=== PATIENT | male | born 1965 | race Caucasian/White ===

== ENCOUNTER → 2016-03-21 | Outpatient (CLI) | payer BC ==
[~2016-03-21] MED LIST: CIPR-250 PO; CLON0.5T PO; MOBI7.5T10 PO; NORC5TAB PO; OMEP40CA2 PO; PRAV10TA PO; SERT25TA85 PO; TRAM50TA2 PO; TYLE325T5 PO
--- NOTE | 2016-04-01 01:18 | ECWPNPC ---
PATIENT NAME: ROSSY ACUÑA : 1965 GENDER: MALE VISIT DATE: 03/21/2016 DISCHARGE DATE: 03/21/16 1219 VISIT LOCKED DATE TIME: PHYSICIAN: ALINE HICKMAN RESOURCE: ALINE HICKMAN REASON FOR APPOINTMENT 1. BACK HISTORY OF PRESENT ILLNESS HISTORY OF PRESENT ILLNESS: HERE FOR POST PROC. F/U.HAD BILATERAL LUMBAR THERAPEUTIC FACET BLOCK 03-05-16.PAIN DIARY REVIEWED AND IS SHOWING APROXIMATLEY 50% REDUCTION IN PAIN POST PROCEDURE.CONTINUES WITH IMPROVEMENT.CHIEF AREA OF PAIN IS BUTTOCK AND THIGHS.HAS RESPONDED FROM SIJ INJECTIONS IN PAST.RATING PAIN IN THIS AREA 5/10. PAIN THE PATIENT DESCRIBES THE PAIN... FALL RISK SCREENING: SCREENING :NO FALLS IN THE PAST YEAR CURRENT MEDICATIONS TAKING MELOXICAM 7.5 MG TABLET 1 TABLET ORALLY ONCE A DAY TAKING OMEPRAZOLE 40 MG CAPSULE DELAYED RELEASE 1 CAPSULE ORALLY ONCE A DAY TAKING IBUPROFEN 400 MG TABLET 1 TABLET ORALLY THREE TIMES A DAY TAKING PRAVASTATIN SODIUM 20 MG TABLET ORAL DAILY TAKING ROPINIROLE HCL 1 MG TABLET ORAL FOUR TIMES DAILY TAKING LISINOPRIL 5 MG TABLET ORAL DAILY TAKING PAMELOR 10 MG CAPSULE 1 CAPSULE ORALLY BID NOT-TAKING SERTRALINE HCL 50 MG TABLET 75MG TAB ORAL DAILY DISCONTINUED GABAPENTIN 400 MG CAPSULE 1 CAPSULE ORALLY THREE TIMES A DAY PAST MEDICAL HISTORY BARRETTS ESOPHAGUS NECK PAIN OSTEO ARTHRITUS CRUSHED SPINAL CORD - NERVE CONDUCTION TEST SHOWED MISFIRING NERVES GENERALIZED MUSCLE WEAKNESS ALLERGIES N.K.D.A. SOCIAL HISTORY GENERAL: TOBACCO USE ARE YOU A:CURRENT SMOKER HOW MANY CIGARETTES A DAY DO YOU SMOKE?6-10 HOW SOON AFTER YOU WAKE UP DO YOU SMOKE YOUR FIRST CIGARETTE?6-30 MIN HOW OFTEN DO YOU SMOKE CIGARETTES?EVERY DAY PATIENT COUNSELED ON THE DANGERS OF TOBACCO USE AND URGED TO QUIT: PATIENT ENCOURAGED TO STOP SMOKING. ARE YOU INTERESTED IN QUITTING?THINKING ABOUT QUITTING LEARNING BARRIERS / SPECIAL NEEDS ORIENTED TO PLAN OF CARE: PATIENT, PAIN MANAGEMENT PATIENT, ORIENTED TO PLAN OF CARE: PATIENT, PAIN MANAGEMENT PATIENT. NEW PATIENT PAIN DIARY TODAY'S VISITNOTES FROM 0-10, WHAT LEVEL IS YOUR PAIN TODAY?0 PAIN CLINIC PFS, CLERGY, PUBLIC HEALTH REFERRALS PFS REFERRAL NEEDED?NO CLERGY REFERRAL NEEDED?NO PUBLIC HEALTH REFERRAL NEEDED?NO WAS THE PROVIDER NOTIFIED OF ANY PERTINENT INFO?NO PFS REFERRAL NEEDED?NO CLERGY REFERRAL NEEDED?NO PUBLIC HEALTH REFERRAL NEEDED?NO WAS THE PROVIDER NOTIFIED OF ANY PERTINENT INFO?NO REVIEW OF SYSTEMS CONSTITUTIONAL: ANY CHANGE IN YOUR MEDICAL CONDITION? NO . RECENT ILLNESS DENIES . CHILLS NO . FEVER NO . WEIGHT LOSS DENIES . INFECTION: DO YOU HAVE NEW INFECTIONS? NO . DO YOU HAVE HISTORY OF MRSA? NO . MUSCULOSKELETAL: ANY NEW PATTERNS OF PAIN OR NUMBNESS? NO . GASTROENTEROLOGY: ANY NEW CHANGE IN BOWEL CONTROL? NO . GENITOURINARY: ANY NEW CHANGE IN BLADDER CONTROL? NO . IS THERE A CHANCE YOU COULD BE ? NO . HEMATOLOGY/LYMPH: DO YOU TAKE ANY BLOOD THINNERS? (FOR EXAMPLE- COUMADIN, PLAVIX, AGGRENOX, PLATEL, PRADAXA, OR XARELTO) NO . WHEN WAS YOUR LAST DOSE? DATE: TIME: . NEUROLOGY: HAVE YOU FALLEN IN THE PAST 6 MONTHS? NO . ANY NEW EXTREMITY NUMBNESS OR WEAKNESS? NO . CARDIOLOGY: DO YOU HAVE A PACEMAKER OR DEFIBRILLATOR? NO . CHEST PAIN DENIES . SHORTNESS OF BREATH DENIES . RESPIRATORY: HAVE YOU BEEN SICK IN THE PAST WEEK? NO . FEVER NO . FLU LIKE SYMPTOMS? NO . COUGH NO, DENIES . SHORTNESS OF BREATH DENIES . INTEGUMENTARY: DO YOU HAVE ANY RASHES OR OPEN SORES? NO . ALLERGIC/IMMUNO: ARE YOU ALLERGIC TO SHELLFISH OR IV DYE? NO . ANY NEW ALLERGIES? NO . PSYCHIATRIC: DO YOU HAVE THOUGHTS OF HURTING YOURSELF OR SOMEONE ELSE? NO . ARE YOU ABUSED, NEGLECTED, OR IN AN UNSAFE ENVIRONMENT? NO . ENDOCRINOLOGY: ARE YOU DIABETIC? NO . OTHER: DO YOU NEED ANY PRESCRIPTIONS? NO . IF YES, PLEASE LIST: ____ . ANY NEW PROBLEMS WITH YOUR MEDICATIONS? NO . WHEN DID YOU LAST EAT? ____ . WHEN DID YOU LAST DRINK? ____ . WHAT DID YOU LAST DRINK? ____ . NAME OF PERSON DRIVING YOU HOME? ____ . DO YOU HAVE ANY OTHER QUESTIONS OR CONCERNS NO . REVIEWED BY: PROVIDER: ALINE GARCIA . VITAL SIGNS WT 170 LBS, HT 70", BMI 24.39 INDEX, BP 152/84 MM HG, HR 84 /MIN, RR 14 /MIN, TEMP 98 F, OXYGEN SAT % 100, REVIEWED BY: CS. EXAMINATION GENERAL EXAMINATION: LUNGS:LUNG SOUNDS ARE CLEAR. HEART:HEART RATE REGULAR. MUSCULOSKELETAL:*, PALPATION: NEGATIVE FOR PAIN OVER L/S SPINE. NEGATIVE FOR PAIN OVER L/S PARSPINALS, MUSCLE STRENGTH TESTING 5/5 BILATERAL.SPECIFIC POINT TENDERNESS OVER BILAT. SIJ NOTED.. DIAGNOSTIC: . 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 PROCEDURE CODES FA211 ESTABILISHED PATIENT [facility] FACILITY CHARGE FOLLOW UP 2WK POST (REASON: BILAT. SIJ) ELECTRONICALLY SIGNED BY JOSE MAS ON 03/31/2016 AT 01:29 PM EST DISCLAIMER : THIS IS A VISIT SUMMARY EXTRACTED FROM THE [employer] CHART. IT IS NOT A COPY OF THE [employer] PROGRESS NOTE. GABRIELA
== END ==
LOC: M PAIN 11:20
PROVIDERS: ATTEND Nurse Practitioner Family
DX: Z09 Encounter for follow-up examination after completed treatment for conditions other than malignant neoplasm (principal); M53.3 Sacrococcygeal disorders, not elsewhere classified; M54.5 Low back pain; M15.0 Primary generalized (osteo)arthritis; M54.2 Cervicalgia; K22.70 Barrett's esophagus without dysplasia; G95.20 Unspecified cord compression; M62.81 Muscle weakness (generalized); F17.200 Nicotine dependence, unspecified, uncomplicated; Z79.1 Long term (current) use of non-steroidal anti-inflammatories (NSAID); Z79.899 Other long term (current) drug therapy

== ENCOUNTER → 2016-04-02 | Outpatient (CLI) | payer BC ==
[~2016-04-02] MED LIST changes: +BUPIVACAINE HCL 0.25% 30 ML VIAL As Ordered ONE; +ISOVUE-M 300 61% 15ML VIAL (Q9967) As Ordered ONE; +LIDOCAINE 1% SDV INJ 30 ML VIAL As Ordered ONE; +TRIAMCINOLONE ACETONIDE SUSP 40 MG/ML VIAL (J3301) As Ordered ONE; +diazePAM 5 MG TAB As Ordered ONE; +oxyCODONE 5MG TAB As Ordered ONE
--- NOTE | 2016-04-03 08:59 | REP ---
SI joint series: Six views. History: Bilateral SI joint injection for pain. 19 seconds of fluoroscopy time is reported. Findings: A sequence of six fluoroscopically obtained intraprocedural spot radiographs of the SI joints document needle position and contrast injection associated with SI joint injection procedure. Signed by Jamshid Alonzo MD 04/03/2016 10:22 A
--- NOTE | 2016-04-06 23:27 | ECWPNPC ---
PATIENT NAME: ROSSY ACUÑA : 1965 GENDER: MALE VISIT DATE: 04/02/2016 DISCHARGE DATE: 04/02/16 1458 VISIT LOCKED DATE TIME: PHYSICIAN: MAURICIO ALEXANDRE RESOURCE: MAURICIO ALEXANDRE REASON FOR APPOINTMENT 1. BILAT SIJ HISTORY OF PRESENT ILLNESS HISTORY OF PRESENT ILLNESS: PAIN THE PATIENT DESCRIBES THE PAIN... FALL RISK SCREENING: SCREENING :NO FALLS IN THE PAST YEAR CURRENT MEDICATIONS TAKING MELOXICAM 7.5 MG TABLET 1 TABLET ORALLY ONCE A DAY, NOTES: 04-02-16429 TAKING OMEPRAZOLE 40 MG CAPSULE DELAYED RELEASE 1 CAPSULE ORALLY ONCE A DAY, NOTES: 04-01-162099 TAKING IBUPROFEN 400 MG TABLET 1 TABLET ORALLY THREE TIMES A DAY, NOTES: 04-02-16429 TAKING PRAVASTATIN SODIUM 20 MG TABLET ORAL DAILY, NOTES: 04-01-162099 TAKING ROPINIROLE HCL 1 MG TABLET ORAL FOUR TIMES DAILY, NOTES: 04-02-16429 TAKING LISINOPRIL 5 MG TABLET ORAL DAILY, NOTES: 04-02-16429 TAKING PAMELOR 10 MG CAPSULE 1 CAPSULE ORALLY BID, NOTES: 04-02-16429 TAKING PERCOCET 7.5-325 MG TABLET 1 TABLET NEEDED ORALLY TWICE DAILY, NOTES: 04-01-16 1300 DISCONTINUED LYRICA 50 MG CAPSULE 1 CAPSULE ORALLY BID DISCONTINUED SERTRALINE HCL 50 MG TABLET 75MG TAB ORAL DAILY MEDICATION LIST REVIEWED AND RECONCILED WITH THE PATIENT PAST MEDICAL HISTORY BARRETTS ESOPHAGUS NECK PAIN OSTEO ARTHRITUS CRUSHED SPINAL CORD - NERVE CONDUCTION TEST SHOWED MISFIRING NERVES GENERALIZED MUSCLE WEAKNESS ALLERGIES N.K.D.A. SOCIAL HISTORY GENERAL: TOBACCO USE ARE YOU A:NONSMOKER LEARNING BARRIERS / SPECIAL NEEDS ORIENTED TO PLAN OF CARE: PATIENT, PAIN MANAGEMENT PATIENT, ORIENTED TO PLAN OF CARE: PATIENT, PAIN MANAGEMENT PATIENT. NEW PATIENT PAIN DIARY TODAY'S VISITNOTES FROM 0-10, WHAT LEVEL IS YOUR PAIN TODAY?0 PAIN CLINIC PFS, CLERGY, PUBLIC HEALTH REFERRALS PFS REFERRAL NEEDED?NO CLERGY REFERRAL NEEDED?NO PUBLIC HEALTH REFERRAL NEEDED?NO WAS THE PROVIDER NOTIFIED OF ANY PERTINENT INFO?NO PFS REFERRAL NEEDED?NO CLERGY REFERRAL NEEDED?NO PUBLIC HEALTH REFERRAL NEEDED?NO WAS THE PROVIDER NOTIFIED OF ANY PERTINENT INFO?NO REVIEW OF SYSTEMS CONSTITUTIONAL: ANY CHANGE IN YOUR MEDICAL CONDITION? NO . CHILLS NO . FEVER NO . INFECTION: DO YOU HAVE NEW INFECTIONS? NO . DO YOU HAVE HISTORY OF MRSA? NO . MUSCULOSKELETAL: ANY NEW PATTERNS OF PAIN OR NUMBNESS? NO . GASTROENTEROLOGY: ANY NEW CHANGE IN BOWEL CONTROL? NO . GENITOURINARY: ANY NEW CHANGE IN BLADDER CONTROL? NO . IS THERE A CHANCE YOU COULD BE ? NO . HEMATOLOGY/LYMPH: DO YOU TAKE ANY BLOOD THINNERS? (FOR EXAMPLE- COUMADIN, PLAVIX, AGGRENOX, PLATEL, PRADAXA, OR XARELTO) NO . WHEN WAS YOUR LAST DOSE? DATE: TIME: . NEUROLOGY: HAVE YOU FALLEN IN THE PAST 6 MONTHS? NO . ANY NEW EXTREMITY NUMBNESS OR WEAKNESS? NO . CARDIOLOGY: DO YOU HAVE A PACEMAKER OR DEFIBRILLATOR? NO . RESPIRATORY: HAVE YOU BEEN SICK IN THE PAST WEEK? NO . FEVER NO . FLU LIKE SYMPTOMS? NO . COUGH NO . INTEGUMENTARY: DO YOU HAVE ANY RASHES OR OPEN SORES? NO . ALLERGIC/IMMUNO: ARE YOU ALLERGIC TO SHELLFISH OR IV DYE? NO . ANY NEW ALLERGIES? NO . PSYCHIATRIC: DO YOU HAVE THOUGHTS OF HURTING YOURSELF OR SOMEONE ELSE? NO . ARE YOU ABUSED, NEGLECTED, OR IN AN UNSAFE ENVIRONMENT? NO . ENDOCRINOLOGY: ARE YOU DIABETIC? NO . OTHER: DO YOU NEED ANY PRESCRIPTIONS? NO . IF YES, PLEASE LIST: ____ . ANY NEW PROBLEMS WITH YOUR MEDICATIONS? NO . WHEN DID YOU LAST EAT? 04-02-16 1000 DONUTS . WHEN DID YOU LAST DRINK? 04-02-16 0900 . WHAT DID YOU LAST DRINK? WATER . NAME OF PERSON DRIVING YOU HOME? JUVENCIO . DO YOU HAVE ANY OTHER QUESTIONS OR CONCERNS NO . REVIEWED BY: PROVIDER: . VITAL SIGNS WT 168 LBS, HT 70", BMI 24.10 INDEX, BP 188/91 MM HG, HR 89 /MIN, RR 16 /MIN, TEMP 97.5 F, OXYGEN SAT % 99, NA INITIALS TL 1333ELEVATED BP 188/91, RN Ihsan AWARE- TL. ASSESSMENTS SACROILIITIS, NOT ELSEWHERE CLASSIFIED - M46.1 (PRIMARY) PROCEDURES PN SI PRE PROCEDURE DIAGNOSIS SACROILIITIS, SACROILIAC JOINT DYSFUNCTION POST PROCEDURE DIAGNOSIS SACROILIITIS, SACROILIAC JOINT DYSFUNCTION PROCEDURE BILATERAL SACROILIAC JOINT BLOCK SURGEON DR. MAURICIO ALEXANDRE [employer]ALE [employer] NONE ANESTHESIA LOCAL PRE PROCEDURE NOTE PATIENT WITH HISTORY OF CHRONIC LOW BACK PAIN. I EVALUATED THE PATIENT AND REVIEWED THE CHART. I WENT OVER THE RISKS, ALTERNATIVES, AND BENEFITS ASSOCIATED WITH THIS PROCEDURE. THE PATIENT WOULD LIKE TO PROCEED AND GAVE CONSENT TO PERFORM THE PROCEDURE. THE PATIENT DENIES UNEXPLAINABLE WEIGHT LOSS, FEVER, CHILLS, OR NEW CHANGES IN URINARY OR BOWEL CONTROL DESCRIPTION OF PROCEDURE THE PATIENT WAS BROUGHT TO THE PROCEDURE ROOM AND PLACED IN THE PRONE POSITION. THE LUMBOSACRAL AREA WAS CLEANED WITH CHLORAPREP SOLUTION AND DRAPED ASEPTICALLY. THE PROCEDURE WAS DONE UNDER STERILE CONDITIONS. I CHECKED LATERALITY AND THE LEVEL WHERE THE PROCEDURE WAS GOING TO BE PERFORMED WITH THE PATIENT AND THE SUPPORTING STAFF AT THE MOMENT OF THE TIME OUT IN THE PROCEDURE ROOM. UNDER FLUOROSCOPIC GUIDANCE, TARGET POINT WAS SELECTED AT THE LOWER BORDER OF THE RIGHT AND LEFT SACROILIAC JOINT. TARGET POINT WAS SELECTED AFTER MEDIAL ROTATION AND TILT OF THE MAGNIFIER OF THE C-ARM. LIDOCAINE WAS USED TO NUMB THE SKIN AND SUBCUTANEOUS TISSUE BELOW IT. A SPINAL NEEDLE, 22-GAUGE, WAS ADVANCED UNDER FLUOROSCOPIC GUIDANCE AND FOLLOWING PATIENT FEEDBACK UNTIL THE TARGET AREA WAS TOUCHED. THE POSITION OF THE NEEDLE WAS VERIFIED WITH AP AND LATERAL VIEWS. AFTER PROPER POSITION OF THE NEEDLE WAS ACHIEVED, ISOVUE M DYE 30%, 0.25 ML, WAS INJECTED SHOWING SPREAD OF THE DYE. THEN, A SOLUTION OF 20 MG OF KENALOG WAS INJECTED IN RIGHT JOINT WITH 3 ML OF BUPIVACAINE 0.125%. THERE WAS NO EVIDENCE OF BLOOD, PARESTHESIA OR CEREBROSPINAL FLUID DURING THE PROCEDURE. THE PATIENT WAS SENT TO THE RECOVERY ROOM. THE PATIENT WAS MOVING THE EXTREMITIES AND DOING WELL. THERE WAS NO COMPLICATION DURING THE PROCEDURE. FLUOROSCOPY TIME WAS 19 SECONDS POST PROCEDURE NOTE THE PATIENT WILL BE SEEN IN A FOLLOW UP IN THE NEXT FEW WEEKS. INSTRUCTIONS WERE GIVEN, QUESTIONS WERE ANSWERED, AND THE PATIENT EXPRESSED UNDERSTANDING AND AGREED WITH THE PLAN. I, MOISÉS COHN, DOCUMENTED THE ABOVE INFORMATION ACTING A SCRIBE FOR DR. ALEXANDRE. I, DR. ALEXANDRE, HAVE REVIEWED THE ABOVE DOCUMENT, SCRIBED BY MOISÉS COHN, AND I VERIFY THAT IT IS ACCURATE DIAGNOSTIC IMAGING [facility] FLUORO GUIDANCE (PAIN)[id number] PROCEDURE CODES 16890 INJECT SACROILIAC JOINT 6045F RADXPS IN END [id number] PXD FOLLOW UP 3 WEEKS ELECTRONICALLY SIGNED BY MAURICIO ALEXANDRE MD ON 04/06/2016 AT 10:54 PM EST DISCLAIMER : THIS IS A VISIT SUMMARY EXTRACTED FROM THE [employer] CHART. IT IS NOT A COPY OF THE [employer] PROGRESS NOTE. GABRIELA
== END ==
LOC: M PAIN 13:20
PROVIDERS: ATTEND Anesthesiology
DX: G89.29 Other chronic pain (principal); M46.1 Sacroiliitis, not elsewhere classified; M54.5 Low back pain; Z79.891 Long term (current) use of opiate analgesic; Z79.899 Other long term (current) drug therapy
CPT/HCPCS: G0260; J3301; Q9967

== ENCOUNTER 2016-05-04 14:36 | Emergency (ER) | payer BC ==
[~2016-05-04 14:36] MED LIST changes: -BUPIVACAINE HCL 0.25% 30 ML VIAL As Ordered ONE; -ISOVUE-M 300 61% 15ML VIAL (Q9967) As Ordered ONE; -LIDOCAINE 1% SDV INJ 30 ML VIAL As Ordered ONE; -TRIAMCINOLONE ACETONIDE SUSP 40 MG/ML VIAL (J3301) As Ordered ONE; -diazePAM 5 MG TAB As Ordered ONE; -oxyCODONE 5MG TAB As Ordered ONE
[2016-05-04] MEDS ORDERED: MORPHINE 4 MG/ML 1ML SYRINGE As Ordered ONE (15:40)
[2016-05-04] MEDS ORDERED: diphenhydrAMINE INJ 50MG/ML VIAL (J1200) As Ordered ONE ×3 (15:41→15:49)
[2016-05-04] MEDS ORDERED: PROMETHAZINE INJ 25 MG/ML VIAL (J2550) As Ordered ONE (15:43)
[2016-05-04] MEDS ORDERED: fentaNYL 100 MCG/2 ML INJECTION (J3010) As Ordered ONE (16:16)
--- NOTE | 2016-05-04 16:28 | REP ---
Clinical: Headache . Comparison: None . Findings: The ventricles, sulci, and cisterns are normal in position and appearance. Munoz-white differentiation is maintained. No acute intracranial hemorrhage, mass/mass effect, pathology or trauma/injury. No evidence for acute infarction. No extra-axial fluid collection. Calvarium is intact. Partial opacification to the ethmoid air cells and right frontal sinus suggesting acute/chronic sinusitis. Impression: Normal noncontrast head CT. Sinusitis. No evidence for acute intracranial pathology or trauma/injury. Signed by Collins Zamorano MD 05/04/2016 04:20 P
[2016-05-04] MEDS ORDERED: KETOROLAC 30 MG/ML VIAL (J1885) As Ordered ONE (16:45)
--- NOTE | 2016-05-04 17:20 | EDDOCDS ---
Nurse's Notes [facility] Name: Fady Shay Age: 51 yrs Sex: Male : 1965 Arrival Date: 05/04/2016 Time: 14:36 Bed I4 / M4 Private MD: Other - Complete Info On Cds Diagnosis: Acute frontal sinusitis;Headache Presentation: 05/04 14:44 Presenting complaint: Patient states: head pain started out of the blue a couple of srm hours ago. nausea, dry heaves. no vision changes. This patient has no additional risk factors. Adult Sepsis Screening: The patient does not have new or worsening altered mentation. Patient's respiratory rate is less than 22. Systolic blood pressure is greater than 100. Patient has a qSOFA score of 0- Negative Sepsis Screen. Suicide/Homicide risk assessment- the patient denies having any suicidal and/or homicidal ideations and does not present with any other emotional, behavioral or mental health complaints. Status: Patient is not a family service worker or dependent. Transition of care: patient was not received from another setting of care. 14:44 Acuity: CAILIN Level 3 [facility] 14:44 Method Of Arrival: Walkin/Carried/Asstd [facility] Triage Assessment: 14:48 Headache History: This patient does not have a history of previous headaches. General: srm Appears uncomfortable, Behavior is appropriate for age, cooperative. Pain: Pain currently is 10 out of 10 on a pain scale. Pain began 2 hours ago Also complains of nausea. HIV screening NA for this visit Offered previously. Neurological: Level of Consciousness is awake, alert, Oriented to person, place, time, Moves all extremities. Full function Speech is normal, Facial symmetry appears normal. Historical: - Allergies: no known allergies; - Home Meds: 1. Motrin 400 mg Oral tab (Last dose: 05/04/2016 14:45) 2. lisinopril 5 mg Oral tab 1 tab once daily (Last dose: 05/04/2016 08:00) 3. pravastatin 20 mg oral tab 1 tab once daily 4. Percocet 7.5-325 mg Oral tab twice a day (Last dose: 05/04/2016 08:00) 5. Requip 1 mg Oral tab four times a day (Last dose: 05/04/2016 08:00) 6. cyclobenzaprine 5 mg Oral tab 3 times per day 7. meloxicam 7.5 mg oral tab 1 tab once daily (Last dose: 05/03/2016) 8. nystatin 1 million unit oral cap 5 times a day - PMHx: Fibromyalgia; GERD; Chronic Neck Pain; - PSHx: Cervical Discectomy; - Social history: Smoking status: Patient uses tobacco products, current every day smoker. No barriers to communication noted, The patient speaks fluent [place], Speaks appropriately for age. - Family history: Not pertinent. - : The pt / caregiver states he / she is not on anticoagulants. Home medication list is obtained from the patient. - Exposure Risk Screening:: None identified. Screenin:41 Screening information is obtained from the patient. Fall risk: No risks identified. pml Assistance ADL's: requires no assistance with activities of daily living. Abuse/DV Screen: The patient / caregiver reports he/she is: not in a situation that causes fear, pain or injury. Nutritional screening: No deficits noted. Advance Directives: Currently, there is no health care proxy. home support is adequate. Assessment: 15:41 General: Appears in no apparent distress, comfortable, Behavior is appropriate for age, pml cooperative. Pain: Location: forehead Pain currently is 9 out of 10 on a pain scale. Neurological: Level of Consciousness is awake, alert, Oriented to person, place, time. Neurological: Denies photophobia. Cardiovascular: Capillary refill < 3 seconds. Respiratory: Airway is patent Respiratory effort is even, unlabored. GI: Abdomen is non- distended Reports nausea. Derm: Skin is pink, warm & dry. 16:06 General: Pt medicated IV for headache pt moaning and writhing on stretcher without dls relief awaiting CT additional medications infusing vis pump.. 16:22 General: Pt to CT and returned via w/c IV site remains patent and clear pt re-medicated dls for headache.. 16:52 General: Pt continues to have headache 12/[address] results reviewed and pt re dls medicated again for pain IV meds continues to infuse pts vital signs are stable.. Vital Signs: 14:38 BP 163 / 87; Pulse 113; Resp 18 S; Temp 97.3(O); Pulse Ox 100% on R/A; Weight 74.84 kg gr2 (R); Height 5 ft. 10 in. (177.80 cm) (R); Pain 10/10; 16:39 BP 151 / 82; Pulse 82; Resp 16; Temp 97.7(O); Pulse Ox 100% on R/A; Pain 10/10; sew 17:17 BP 148 / 76; Pulse 78; Resp 16; Temp 97.4(O); Pulse Ox 98% ; Pain 2/10; dls 14:38 Body Mass Index 23.67 (74.84 kg, 177.80 cm) gr2 Vitals: 14:38 Log In Time: May 04, 2016 at 14:38. gr2 ED Course: 14:38 Patient visited by Stone Quach. gr2 14:38 Other - Complete Info On Cds is Private Physician. gr2 14:38 Patient moved to Waiting gr2 14:39 Patient visited by Stone Quach. gr2 14:39 Patient moved to Pre RCE gr2 14:45 Triage Initiated srm 14:50 Patient moved to I4 / M4 [facility] 15:19 Ailyn Bragg MD is Attending Physician. fg 15:19 Patient visited by Ailyn Bragg MD. fg 15:41 The patient / caregiver is instructed regarding the plan of care and ED course. Patient pml has correct armband on for positive identification. Placed in gown. Bed in low position. Call light in reach. Side rails up X2. 15:41 Inserted peripheral IV: 18gauge IV in right antecubital area and blood collected. pml Patient tolerated the procedure well. 15:43 Patient visited by Maria E Rodriguez RN. pml 16:07 [facility] Payment Agreement was scanned into [employer] and attached to record. [facility] 16:39 Patient visited by Karey Sanderson. sew 17:09 CT Head Without Contrast: had MRI 2016, frontal lobe cysts Returned. EDMS 17:17 Discontinued IV lock intact, bleeding controlled, pressure dressing applied, No dls redness/swelling at site. No procedures done that require assistance. Administered Medications: 15:54 Drug: morphine 4 mg [morphine 4 mg/mL intravenous cartridge (1 mL)] Route: IVP; Site: dls right antecubital; 15:54 Drug: Promethazine 25 mg [promethazine 25 mg/mL injection solution (1 mL)] Route: IVP; dls Site: right antecubital; 15:54 Drug: diphenhydrAMINE 12.5 mg [diphenhydramine 50 mg/mL injection solution (0.25 mL)] dls Route: IVP; Site: right antecubital; 16:21 Drug: fentaNYL (PF) 25 mcg [fentanyl (PF) 50 mcg/mL injection solution (0.5 mL)] Route: dls IVP; Site: right antecubital; 16:48 Drug: ketorolac 30 mg [ketorolac 30 mg/mL (1 mL) injection solution (1 mL)] Route: IVP; dls Site: right antecubital; 17:09 Follow up: Response: Pain is decreased dls Order Results: Radiology Order: CT Head Without Contrast: had MRI 2016, frontal lobe cysts Test: CT Head Without Contrast: had MRI 2016, frontal lobe cysts REASON FOR EXAMINATION: headache; Clinical: Headache .; ; Comparison: None .; ; Findings:; The ventricles, sulci, and cisterns are normal in position and appearance.; Munoz-white differentiation is maintained. No acute intracranial hemorrhage,; mass/mass effect, pathology or trauma/injury. No evidence for acute infarction.; No extra-axial fluid collection. Calvarium is intact. Partial opacification to; the ethmoid air cells and right frontal sinus suggesting acute/chronic; sinusitis.; ; Impression:; Normal noncontrast head CT.; Sinusitis.; No evidence for acute intracranial pathology or trauma/injury.; ; ; Signed by; Collins Zamorano MD 05/04/2016 04:20 P; Outcome: 16:54 Discharge ordered by Provider. fg 17:18 Discharge Assessment: Patient awake, alert and oriented x 3. No cognitive and/or dls functional deficits noted. Patient verbalized understanding of disposition instructions. patient administered narcotics - yes. Pt provided with safe discharge. The following High Risk Discharge criteria are identified: None. Discharged to home ambulatory, with significant other. Condition: stable Condition: improved. Discharge instructions given to patient, Instructed on discharge instructions, follow up and referral plans. medication usage, Demonstrated understanding of instructions, medications, Pt was receptive of discharge instructions/ teaching. Prescriptions given X 2. CT Study completed. Property sent home with patient. 17:19 Patient left the ED. dls Signatures: Dispatcher [facility] EDHI Luba Mcgee RN RN srm Scott, Debra, RN RN dls Quay, Paulina, RN RN Chelsey Pickens,RN RN otf Kin, Stone Katz Sandra slh Gill, Frances, MD MD GABRIELA
--- NOTE | 2016-05-04 17:20 | EDDOCDS ---
Physician Documentation [facility] Name: Fady Shay Age: 51 yrs Sex: Male : 1965 Arrival Date: 05/04/2016 Time: 14:36 Bed I4 / M4 Private MD: Other - Complete Info On Cds Disposition: 05/04/16 16:54 Discharged to Home/Self Care. Impression: Acute frontal sinusitis, Headache. - Condition is Stable. - Discharge Instructions: Sinus Headache. - Prescriptions for Doxycycline Hyclate 100 mg Oral Tablet - take 1 tablet by ORAL route every 12 hours; 20 tablet. Fioricet 50- 300-40 mg Oral Capsule - take 1 capsule by ORAL route every 4 hours As needed MDD: 6 tabs; 60 capsule. - Medication Reconciliation, Local Pharmacy Hours form. - Follow up: Private Physician; When: Call to arrange an appointment; Reason: Continuance of care. - Problem is chronic. - Symptoms have improved. Historical: - Allergies: no known allergies; - Home Meds: 1. Motrin 400 mg Oral tab (Last dose: 05/04/2016 14:45) 2. lisinopril 5 mg Oral tab 1 tab once daily (Last dose: 05/04/2016 08:00) 3. pravastatin 20 mg oral tab 1 tab once daily 4. Percocet 7.5-325 mg Oral tab twice a day (Last dose: 05/04/2016 08:00) 5. Requip 1 mg Oral tab four times a day (Last dose: 05/04/2016 08:00) 6. cyclobenzaprine 5 mg Oral tab 3 times per day 7. meloxicam 7.5 mg oral tab 1 tab once daily (Last dose: 05/03/2016) 8. nystatin 1 million unit oral cap 5 times a day - PMHx: Fibromyalgia; GERD; Chronic Neck Pain; - PSHx: Cervical Discectomy; - Social history: Smoking status: Patient uses tobacco products, current every day smoker. No barriers to communication noted, The patient speaks fluent Bahamian, Speaks appropriately for age. - Family history: Not pertinent. - : The pt / caregiver states he / she is not on anticoagulants. Home medication list is obtained from the patient. - Exposure Risk Screening:: None identified. Vital Signs: 05/04 14:38 BP 163 / 87; Pulse 113; Resp 18 S; Temp 97.3(O); Pulse Ox 100% on R/A; Weight 74.84 kg gr2 / 164.99 lbs (R); Height 5 ft. 10 in. (177.80 cm) (R); Pain 10/10; 16:39 BP 151 / 82; Pulse 82; Resp 16; Temp 97.7(O); Pulse Ox 100% on R/A; Pain 10/10; sew 17:17 BP 148 / 76; Pulse 78; Resp 16; Temp 97.4(O); Pulse Ox 98% ; Pain 2/10; dls 14:38 Body Mass Index 23.67 (74.84 kg, 177.80 cm) gr2 MDM: 15:36 IV Saline Lock ordered. fg 15:36 morphine 4 mg IVP once ordered. fg 15:36 Promethazine 25 mg IVP once; dilute and administer 30-60 minutes ordered. fg 15:36 diphenhydrAMINE 12.5 mg IVP once ordered. fg 15:37 CT Head Without Contrast: had MRI 2015, frontal lobe cysts Ordered. [facility] 16:01 Financial registration complete. [facility] 16[facility] Payment Agreement was scanned into [employer] and attached to record. [facility] 16:15 fentaNYL (PF) 25 mcg IVP once ordered. 16:43 ketorolac 30 mg IVP once ordered. fg Administered Medications: 15:54 Drug: morphine 4 mg [morphine 4 mg/mL intravenous cartridge (1 mL)] Route: IVP; Site: dls right antecubital; 15:54 Drug: Promethazine 25 mg [promethazine 25 mg/mL injection solution (1 mL)] Route: IVP; dls Site: right antecubital; 15:54 Drug: diphenhydrAMINE 12.5 mg [diphenhydramine 50 mg/mL injection solution (0.25 mL)] dls Route: IVP; Site: right antecubital; 16:21 Drug: fentaNYL (PF) 25 mcg [fentanyl (PF) 50 mcg/mL injection solution (0.5 mL)] Route: dls IVP; Site: right antecubital; 16:48 Drug: ketorolac 30 mg [ketorolac 30 mg/mL (1 mL) injection solution (1 mL)] Route: IVP; dls Site: right antecubital; 17:09 Follow up: Response: Pain is decreased dls Signatures: Dispatcher [employer] Luba Garza RN RN srm Scott, Debra, RN RN dls Quay, Paulina, RN RN pml Hook, Sandra slh Gill, Frances, MD MD The chart was reviewed and I authenticate all verbal orders and agree with the evaluation and treatment provided.Attachments: 16:07 [facility] Payment Agreement [facility] MTDD
[2016-05-05] MEDS ORDERED: ZOSYN 3.375 GM VIAL (J2543) As Ordered ONE (18:47)
--- NOTE | 2016-05-06 18:20 | EDDOCDS ---
Nurse's Notes [facility] Name: Fady Shay Age: 51 yrs Sex: Male : 1965 Arrival Date: 05/04/2016 Time: 14:36 Bed I4 / M4 Private MD: Other - Complete Info On Cds Diagnosis: Acute frontal sinusitis;Headache Presentation: 05/04 14:44 Presenting complaint: Patient states: head pain started out of the blue a couple of srm hours ago. nausea, dry heaves. no vision changes. This patient has no additional risk factors. Adult Sepsis Screening: The patient does not have new or worsening altered mentation. Patient's respiratory rate is less than 22. Systolic blood pressure is greater than 100. Patient has a qSOFA score of 0- Negative Sepsis Screen. Suicide/Homicide risk assessment- the patient denies having any suicidal and/or homicidal ideations and does not present with any other emotional, behavioral or mental health complaints. Status: Patient is not a environmental services technician or dependent. Transition of care: patient was not received from another setting of care. 14:44 Acuity: CAILIN Level 3 [facility] 14:44 Method Of Arrival: Walkin/Carried/Asstd [facility] Triage Assessment: 14:48 Headache History: This patient does not have a history of previous headaches. General: srm Appears uncomfortable, Behavior is appropriate for age, cooperative. Pain: Pain currently is 10 out of 10 on a pain scale. Pain began 2 hours ago Also complains of nausea. HIV screening NA for this visit Offered previously. Neurological: Level of Consciousness is awake, alert, Oriented to person, place, time, Moves all extremities. Full function Speech is normal, Facial symmetry appears normal. Historical: - Allergies: no known allergies; - Home Meds: 1. Motrin 400 mg Oral tab (Last dose: 05/04/2016 14:45) 2. lisinopril 5 mg Oral tab 1 tab once daily (Last dose: 05/04/2016 08:00) 3. pravastatin 20 mg oral tab 1 tab once daily 4. Percocet 7.5-325 mg Oral tab twice a day (Last dose: 05/04/2016 08:00) 5. Requip 1 mg Oral tab four times a day (Last dose: 05/04/2016 08:00) 6. cyclobenzaprine 5 mg Oral tab 3 times per day 7. meloxicam 7.5 mg oral tab 1 tab once daily (Last dose: 05/03/2016) 8. nystatin 1 million unit oral cap 5 times a day - PMHx: Fibromyalgia; GERD; Chronic Neck Pain; - PSHx: Cervical Discectomy; - Social history: Smoking status: Patient uses tobacco products, current every day smoker. No barriers to communication noted, The patient speaks fluent Bolivian, Speaks appropriately for age. - Family history: Not pertinent. - : The pt / caregiver states he / she is not on anticoagulants. Home medication list is obtained from the patient. - Exposure Risk Screening:: None identified. Screenin:41 Screening information is obtained from the patient. Fall risk: No risks identified. pml Assistance ADL's: requires no assistance with activities of daily living. Abuse/DV Screen: The patient / caregiver reports he/she is: not in a situation that causes fear, pain or injury. Nutritional screening: No deficits noted. Advance Directives: Currently, there is no health care proxy. home support is adequate. Assessment: 15:41 General: Appears in no apparent distress, comfortable, Behavior is appropriate for age, pml cooperative. Pain: Location: forehead Pain currently is 9 out of 10 on a pain scale. Neurological: Level of Consciousness is awake, alert, Oriented to person, place, time. Neurological: Denies photophobia. Cardiovascular: Capillary refill < 3 seconds. Respiratory: Airway is patent Respiratory effort is even, unlabored. GI: Abdomen is non- distended Reports nausea. Derm: Skin is pink, warm & dry. 16:06 General: Pt medicated IV for headache pt moaning and writhing on stretcher without dls relief awaiting CT additional medications infusing vis pump.. 16:22 General: Pt to CT and returned via w/c IV site remains patent and clear pt re-medicated dls for headache.. 16:52 General: Pt continues to have headache 12/[address] results reviewed and pt re dls medicated again for pain IV meds continues to infuse pts vital signs are stable.. Vital Signs: 14:38 BP 163 / 87; Pulse 113; Resp 18 S; Temp 97.3(O); Pulse Ox 100% on R/A; Weight 74.84 kg gr2 (R); Height 5 ft. 10 in. (177.80 cm) (R); Pain 10/10; 16:39 BP 151 / 82; Pulse 82; Resp 16; Temp 97.7(O); Pulse Ox 100% on R/A; Pain 10/10; sew 17:17 BP 148 / 76; Pulse 78; Resp 16; Temp 97.4(O); Pulse Ox 98% ; Pain 2/10; dls 14:38 Body Mass Index 23.67 (74.84 kg, 177.80 cm) gr2 Vitals: 14:38 Log In Time: May 04, 2016 at 14:38. gr2 ED Course: 14:38 Patient visited by Stone Quach. gr2 14:38 Other - Complete Info On Cds is Private Physician. gr2 14:38 Patient moved to Waiting gr2 14:39 Patient visited by Stone Quach. gr2 14:39 Patient moved to Pre RCE gr2 14:45 Triage Initiated srm 14:50 Patient moved to I4 / M4 [facility] 15:19 Ailyn Bragg MD is Attending Physician. fg 15:19 Patient visited by Ailyn Bragg MD. fg 15:41 The patient / caregiver is instructed regarding the plan of care and ED course. Patient pml has correct armband on for positive identification. Placed in gown. Bed in low position. Call light in reach. Side rails up X2. 15:41 Inserted peripheral IV: 18gauge IV in right antecubital area and blood collected. pml Patient tolerated the procedure well. 15:43 Patient visited by Maria E Rodriguez RN. pml 16:07 [facility] Payment Agreement was scanned into [employer] and attached to record. [facility] 16:39 Patient visited by Karey Sanderson. sew 17:09 CT Head Without Contrast: had MRI 2016, frontal lobe cysts Returned. EDMS 17:17 Discontinued IV lock intact, bleeding controlled, pressure dressing applied, No dls redness/swelling at site. No procedures done that require assistance. 05/05 12:29 T-Sheet-- Draft Copy was scanned into [employer] and attached to record. gb Administered Medications: 05/04 15:54 Drug: morphine 4 mg [morphine 4 mg/mL intravenous cartridge (1 mL)] Route: IVP; Site: dls right antecubital; 15:54 Drug: Promethazine 25 mg [promethazine 25 mg/mL injection solution (1 mL)] Route: IVP; dls Site: right antecubital; 15:54 Drug: diphenhydrAMINE 12.5 mg [diphenhydramine 50 mg/mL injection solution (0.25 mL)] dls Route: IVP; Site: right antecubital; 16:21 Drug: fentaNYL (PF) 25 mcg [fentanyl (PF) 50 mcg/mL injection solution (0.5 mL)] Route: dls IVP; Site: right antecubital; 16:48 Drug: ketorolac 30 mg [ketorolac 30 mg/mL (1 mL) injection solution (1 mL)] Route: IVP; dls Site: right antecubital; 17:09 Follow up: Response: Pain is decreased dls Order Results: Radiology Order: CT Head Without Contrast: had MRI 2016, frontal lobe cysts Test: CT Head Without Contrast: had MRI 2016, frontal lobe cysts REASON FOR EXAMINATION: headache; Clinical: Headache .; ; Comparison: None .; ; Findings:; The ventricles, sulci, and cisterns are normal in position and appearance.; Munoz-white differentiation is maintained. No acute intracranial hemorrhage,; mass/mass effect, pathology or trauma/injury. No evidence for acute infarction.; No extra-axial fluid collection. Calvarium is intact. Partial opacification to; the ethmoid air cells and right frontal sinus suggesting acute/chronic; sinusitis.; ; Impression:; Normal noncontrast head CT.; Sinusitis.; No evidence for acute intracranial pathology or trauma/injury.; ; ; Signed by; Collins Zamorano MD 05/04/2016 04:20 P; Outcome: 16:54 Discharge ordered by Provider. fg 17:18 Discharge Assessment: Patient awake, alert and oriented x 3. No cognitive and/or dls functional deficits noted. Patient verbalized understanding of disposition instructions. patient administered narcotics - yes. Pt provided with safe discharge. The following High Risk Discharge criteria are identified: None. Discharged to home ambulatory, with significant other. Condition: stable Condition: improved. Discharge instructions given to patient, Instructed on discharge instructions, follow up and referral plans. medication usage, Demonstrated understanding of instructions, medications, Pt was receptive of discharge instructions/ teaching. Prescriptions given X 2. CT Study completed. Property sent home with patient. 17:19 Patient left the ED. dls Signatures: Dispatcher [employer] EDMS Luba Mcgee, RN RN srm Antonia Hong RN RN dls Emiliana Almeida, Reg Reg Maria E Hernandez RN RN pml Hafner, Jane, RN RN [facility] Kin, Stone aKtz 2 Denise Arteaga Frances, MD MD fg Chart Complete MTDD
--- NOTE | 2016-05-06 18:20 | EDDOCDS ---
Physician Documentation [facility] Name: Fady Shay Age: 51 yrs Sex: Male : 1965 Arrival Date: 05/04/2016 Time: 14:36 Bed I4 / M4 Private MD: Other - Complete Info On Cds Disposition: 05/04/16 16:54 Discharged to Home/Self Care. Impression: Acute frontal sinusitis, Headache. - Condition is Stable. - Discharge Instructions: Sinus Headache. - Prescriptions for Doxycycline Hyclate 100 mg Oral Tablet - take 1 tablet by ORAL route every 12 hours; 20 tablet. Fioricet 50- 300-40 mg Oral Capsule - take 1 capsule by ORAL route every 4 hours As needed MDD: 6 tabs; 60 capsule. - Medication Reconciliation, Local Pharmacy Hours form. - Follow up: Private Physician; When: Call to arrange an appointment; Reason: Continuance of care. - Problem is chronic. - Symptoms have improved. Historical: - Allergies: no known allergies; - Home Meds: 1. Motrin 400 mg Oral tab (Last dose: 05/04/2016 14:45) 2. lisinopril 5 mg Oral tab 1 tab once daily (Last dose: 05/04/2016 08:00) 3. pravastatin 20 mg oral tab 1 tab once daily 4. Percocet 7.5-325 mg Oral tab twice a day (Last dose: 05/04/2016 08:00) 5. Requip 1 mg Oral tab four times a day (Last dose: 05/04/2016 08:00) 6. cyclobenzaprine 5 mg Oral tab 3 times per day 7. meloxicam 7.5 mg oral tab 1 tab once daily (Last dose: 05/03/2016) 8. nystatin 1 million unit oral cap 5 times a day - PMHx: Fibromyalgia; GERD; Chronic Neck Pain; - PSHx: Cervical Discectomy; - Social history: Smoking status: Patient uses tobacco products, current every day smoker. No barriers to communication noted, The patient speaks fluent Armenian, Speaks appropriately for age. - Family history: Not pertinent. - : The pt / caregiver states he / she is not on anticoagulants. Home medication list is obtained from the patient. - Exposure Risk Screening:: None identified. Vital Signs: 05/04 14:38 BP 163 / 87; Pulse 113; Resp 18 S; Temp 97.3(O); Pulse Ox 100% on R/A; Weight 74.84 kg gr2 / 164.99 lbs (R); Height 5 ft. 10 in. (177.80 cm) (R); Pain 10/10; 16:39 BP 151 / 82; Pulse 82; Resp 16; Temp 97.7(O); Pulse Ox 100% on R/A; Pain 10/10; sew 17:17 BP 148 / 76; Pulse 78; Resp 16; Temp 97.4(O); Pulse Ox 98% ; Pain 2/10; dls 14:38 Body Mass Index 23.67 (74.84 kg, 177.80 cm) gr2 MDM: 15:36 IV Saline Lock ordered. fg 15:36 morphine 4 mg IVP once ordered. fg 15:36 Promethazine 25 mg IVP once; dilute and administer 30-60 minutes ordered. fg 15:36 diphenhydrAMINE 12.5 mg IVP once ordered. fg 15:37 CT Head Without Contrast: had MRI 2015, frontal lobe cysts Ordered. [facility] 16:01 Financial registration complete. [facility] 16:07 [facility] Payment Agreement was scanned into [employer] and attached to record. [facility] 16:15 fentaNYL (PF) 25 mcg IVP once ordered. 16:43 ketorolac 30 mg IVP once ordered. 05/05 12:29 T-Sheet-- Draft Copy was scanned into [employer] and attached to record. gb Administered Medications: 05/04 15:54 Drug: morphine 4 mg [morphine 4 mg/mL intravenous cartridge (1 mL)] Route: IVP; Site: dls right antecubital; 15:54 Drug: Promethazine 25 mg [promethazine 25 mg/mL injection solution (1 mL)] Route: IVP; dls Site: right antecubital; 15:54 Drug: diphenhydrAMINE 12.5 mg [diphenhydramine 50 mg/mL injection solution (0.25 mL)] dls Route: IVP; Site: right antecubital; 16:21 Drug: fentaNYL (PF) 25 mcg [fentanyl (PF) 50 mcg/mL injection solution (0.5 mL)] Route: dls IVP; Site: right antecubital; 16:48 Drug: ketorolac 30 mg [ketorolac 30 mg/mL (1 mL) injection solution (1 mL)] Route: IVP; dls Site: right antecubital; 17:09 Follow up: Response: Pain is decreased dls Signatures: Dispatcher [employer] Luba Garza, RN RN Antonia Thakkar RN RN dls Emiliana Almeida, Reg Reg gb Maria E Rodriguez RN RN pml Hook, Sandra [facility] Ailyn Bragg MD MD The chart was reviewed and I authenticate all verbal orders and agree with the evaluation and treatment provided.Attachments: 16:07 [facility] Payment Agreement [facility] 05/05 12:29 T-Sheet-- Draft Copy gb Chart Complete MTDD
--- NOTE | 2016-05-06 18:20 | EDDOCDS ---
Physician Documentation [facility] Name: Fady Shay Age: 51 yrs Sex: Male : 1965 Arrival Date: 05/04/2016 Time: 14:36 Bed I4 / M4 Private MD: Other - Complete Info On Cds Disposition: 05/04/16 16:54 Discharged to Home/Self Care. Impression: Acute frontal sinusitis, Headache. - Condition is Stable. - Discharge Instructions: Sinus Headache. - Prescriptions for Doxycycline Hyclate 100 mg Oral Tablet - take 1 tablet by ORAL route every 12 hours; 20 tablet. Fioricet 50- 300-40 mg Oral Capsule - take 1 capsule by ORAL route every 4 hours As needed MDD: 6 tabs; 60 capsule. - Medication Reconciliation, Local Pharmacy Hours form. - Follow up: Private Physician; When: Call to arrange an appointment; Reason: Continuance of care. - Problem is chronic. - Symptoms have improved. Historical: - Allergies: no known allergies; - Home Meds: 1. Motrin 400 mg Oral tab (Last dose: 05/04/2016 14:45) 2. lisinopril 5 mg Oral tab 1 tab once daily (Last dose: 05/04/2016 08:00) 3. pravastatin 20 mg oral tab 1 tab once daily 4. Percocet 7.5-325 mg Oral tab twice a day (Last dose: 05/04/2016 08:00) 5. Requip 1 mg Oral tab four times a day (Last dose: 05/04/2016 08:00) 6. cyclobenzaprine 5 mg Oral tab 3 times per day 7. meloxicam 7.5 mg oral tab 1 tab once daily (Last dose: 05/03/2016) 8. nystatin 1 million unit oral cap 5 times a day - PMHx: Fibromyalgia; GERD; Chronic Neck Pain; - PSHx: Cervical Discectomy; - Social history: Smoking status: Patient uses tobacco products, current every day smoker. No barriers to communication noted, The patient speaks fluent Albanian, Speaks appropriately for age. - Family history: Not pertinent. - : The pt / caregiver states he / she is not on anticoagulants. Home medication list is obtained from the patient. - Exposure Risk Screening:: None identified. Vital Signs: 05/04 14:38 BP 163 / 87; Pulse 113; Resp 18 S; Temp 97.3(O); Pulse Ox 100% on R/A; Weight 74.84 kg gr2 / 164.99 lbs (R); Height 5 ft. 10 in. (177.80 cm) (R); Pain 10/10; 16:39 BP 151 / 82; Pulse 82; Resp 16; Temp 97.7(O); Pulse Ox 100% on R/A; Pain 10/10; sew 17:17 BP 148 / 76; Pulse 78; Resp 16; Temp 97.4(O); Pulse Ox 98% ; Pain 2/10; dls 14:38 Body Mass Index 23.67 (74.84 kg, 177.80 cm) gr2 MDM: 15:36 IV Saline Lock ordered. fg 15:36 morphine 4 mg IVP once ordered. fg 15:36 Promethazine 25 mg IVP once; dilute and administer 30-60 minutes ordered. fg 15:36 diphenhydrAMINE 12.5 mg IVP once ordered. fg 15:37 CT Head Without Contrast: had MRI 2015, frontal lobe cysts Ordered. [facility] 16:01 Financial registration complete. [facility] 16:07 [facility] Payment Agreement was scanned into [employer] and attached to record. [facility] 16:15 fentaNYL (PF) 25 mcg IVP once ordered. 16:43 ketorolac 30 mg IVP once ordered. 05/05 12:29 T-Sheet-- Draft Copy was scanned into [employer] and attached to record. gb Administered Medications: 05/04 15:54 Drug: morphine 4 mg [morphine 4 mg/mL intravenous cartridge (1 mL)] Route: IVP; Site: dls right antecubital; 15:54 Drug: Promethazine 25 mg [promethazine 25 mg/mL injection solution (1 mL)] Route: IVP; dls Site: right antecubital; 15:54 Drug: diphenhydrAMINE 12.5 mg [diphenhydramine 50 mg/mL injection solution (0.25 mL)] dls Route: IVP; Site: right antecubital; 16:21 Drug: fentaNYL (PF) 25 mcg [fentanyl (PF) 50 mcg/mL injection solution (0.5 mL)] Route: dls IVP; Site: right antecubital; 16:48 Drug: ketorolac 30 mg [ketorolac 30 mg/mL (1 mL) injection solution (1 mL)] Route: IVP; dls Site: right antecubital; 17:09 Follow up: Response: Pain is decreased dls Signatures: Dispatcher [employer] Luba Garza, RN RN Antonia Thakkar RN RN dls Emiliana Almeida, Reg Reg gb Maria E Rodriguez RN RN pml Hook, Sandra [facility] Ailyn Bragg MD MD The chart was reviewed and I authenticate all verbal orders and agree with the evaluation and treatment provided.Attachments: 16:07 [facility] Payment Agreement [facility] 05/05 12:29 T-Sheet-- Draft Copy gb Chart Complete MTDD
== END 2016-05-04 17:19 | disposition home or self-care (01) ==
LOC: M ED 14:36
DX: J01.90 Acute sinusitis, unspecified (principal); M79.7 Fibromyalgia; K21.9 Gastro-esophageal reflux disease without esophagitis; M54.2 Cervicalgia; Z72.0 Tobacco use; Z79.891 Long term (current) use of opiate analgesic; Z79.899 Other long term (current) drug therapy
CPT/HCPCS: 36415; 70450; 96374; 96375; 99284; J1200; J1885; J2543; J3010

== ENCOUNTER → 2016-05-05 | Outpatient (CLI) | payer BC ==
--- NOTE | 2016-05-06 00:04 | ECWPNPC ---
PATIENT NAME: ROSSY ACUÑA : 1965 GENDER: MALE VISIT DATE: 05/05/2016 DISCHARGE DATE: 05/05/16 1435 VISIT LOCKED DATE TIME: PHYSICIAN: ALINE HICKMAN RESOURCE: ALINE HICKMAN REASON FOR APPOINTMENT 1. POST PROCEDURE HISTORY OF PRESENT ILLNESS GENERAL: HERE FOR POST PROCEDURE F/U.HAD BILAT. SIJ ON04-02-16.REPORTS DECREASE IN BILAT. HIP PAIN BUT IT IS SLOWLY CREEPING BACK.RATING RIGHT LOW BACK PAIN 5/10 VAS.C/O RIGHT NECK PAIN.HISTORY OF CERVICAL FUSION ON AN EMERGENT BASIS AUGUST [address] DOW.HE HAD EXPECTED THAT WE WOULD HAVE A REFERRAL FOR HIS NECK BUT WE HAVENT RECIEVED ONE.CURRENTLY PATIENT IS ILL WITH SINUSITIS ND TAKING ANTIBIOTIC.HEAD PAIN WAS SO SEVERE YESTERDAY HE HAD TO GO TO ER. HISTORY OF PRESENT ILLNESS: PAIN THE PATIENT DESCRIBES THE PAIN... FALL RISK SCREENING: SCREENING :NO FALLS IN THE PAST YEAR CURRENT MEDICATIONS TAKING MELOXICAM 7.5 MG TABLET 1 TABLET ORALLY ONCE A DAY TAKING OMEPRAZOLE 40 MG CAPSULE DELAYED RELEASE 1 CAPSULE ORALLY ONCE A DAY TAKING IBUPROFEN 400 MG TABLET 1 TABLET ORALLY THREE TIMES A DAY PRN TAKING PRAVASTATIN SODIUM 20 MG TABLET ORAL DAILY TAKING ROPINIROLE HCL 1 MG TABLET ORAL FOUR TIMES DAILY TAKING LISINOPRIL 5 MG TABLET ORAL DAILY TAKING PERCOCET 7.5-325 MG TABLET 1 TABLET NEEDED ORALLY TWICE DAILY TAKING CYCLOBENZAPRINE HCL 5 MG TABLET 1 TABLET ORALLY THREE TIMES A DAY PRN TAKING NYSTATIN 171083 UNIT/ML SUSPENSION 5ML MOUTH/THROAT 5X/DAY TAKING FIORICET 1 CAP EVERY 4 HOURS NEEDED TAKING DOXYCYCLINE (ROSACEA) 100 MG 1 TAB ORALLY Q 12 HOURS DISCONTINUED PAMELOR 10 MG CAPSULE 1 CAPSULE ORALLY BID DISCONTINUED CYCLOBENZAPRINE HCL MEDICATION LIST REVIEWED AND RECONCILED WITH THE PATIENT PAST MEDICAL HISTORY BARRETTS ESOPHAGUS NECK PAIN OSTEO ARTHRITUS CRUSHED SPINAL CORD - NERVE CONDUCTION TEST SHOWED MISFIRING NERVES GENERALIZED MUSCLE WEAKNESS ALLERGIES N.K.D.A. SOCIAL HISTORY GENERAL: TOBACCO USE ARE YOU A:CURRENT SMOKER HOW MANY CIGARETTES A DAY DO YOU SMOKE?11-20 HOW SOON AFTER YOU WAKE UP DO YOU SMOKE YOUR FIRST CIGARETTE?6-30 MIN HOW OFTEN DO YOU SMOKE CIGARETTES?EVERY DAY PATIENT COUNSELED ON THE DANGERS OF TOBACCO USE AND URGED TO QUIT: COUNCELLED ON THE IMPORTANCE OF QUITTING. ARE YOU INTERESTED IN QUITTING?NOT READY TO QUIT LEARNING BARRIERS / SPECIAL NEEDS ORIENTED TO PLAN OF CARE: PATIENT, PAIN MANAGEMENT PATIENT, ORIENTED TO PLAN OF CARE: PATIENT, PAIN MANAGEMENT PATIENT. NEW PATIENT PAIN DIARY TODAY'S VISITNOTES FROM 0-10, WHAT LEVEL IS YOUR PAIN TODAY?0 PAIN CLINIC PFS, CLERGY, PUBLIC HEALTH REFERRALS PFS REFERRAL NEEDED?NO CLERGY REFERRAL NEEDED?NO PUBLIC HEALTH REFERRAL NEEDED?NO WAS THE PROVIDER NOTIFIED OF ANY PERTINENT INFO?NO PFS REFERRAL NEEDED?NO CLERGY REFERRAL NEEDED?NO PUBLIC HEALTH REFERRAL NEEDED?NO WAS THE PROVIDER NOTIFIED OF ANY PERTINENT INFO?NO REVIEW OF SYSTEMS CONSTITUTIONAL: ANY CHANGE IN YOUR MEDICAL CONDITION? YES, SEEN IN THE ER YEST. FOR PAIN IN [place]. DIAGNOSED WITH FRONTAL SINUS INFECTION. PRESCRIBED DOXYCYCLINE AND FIORICET . CHILLS NO . FEVER NO . INFECTION: DO YOU HAVE NEW INFECTIONS? NO . DO YOU HAVE HISTORY OF MRSA? NO . MUSCULOSKELETAL: ANY NEW PATTERNS OF PAIN OR NUMBNESS? YES HEADACHE . GASTROENTEROLOGY: ANY NEW CHANGE IN BOWEL CONTROL? NO . GENITOURINARY: ANY NEW CHANGE IN BLADDER CONTROL? NO . IS THERE A CHANCE YOU COULD BE ? NO . HEMATOLOGY/LYMPH: DO YOU TAKE ANY BLOOD THINNERS? (FOR EXAMPLE- COUMADIN, PLAVIX, AGGRENOX, PLATEL, PRADAXA, OR XARELTO) NO . WHEN WAS YOUR LAST DOSE? DATE: TIME: . NEUROLOGY: HAVE YOU FALLEN IN THE PAST 6 MONTHS? NO . ANY NEW EXTREMITY NUMBNESS OR WEAKNESS? NO . CARDIOLOGY: DO YOU HAVE A PACEMAKER OR DEFIBRILLATOR? NO . RESPIRATORY: HAVE YOU BEEN SICK IN THE PAST WEEK? NO . FEVER NO . FLU LIKE SYMPTOMS? NO . COUGH NO . INTEGUMENTARY: DO YOU HAVE ANY RASHES OR OPEN SORES? NO . ALLERGIC/IMMUNO: ARE YOU ALLERGIC TO SHELLFISH OR IV DYE? NO . ANY NEW ALLERGIES? NO . PSYCHIATRIC: DO YOU HAVE THOUGHTS OF HURTING YOURSELF OR SOMEONE ELSE? NO . ARE YOU ABUSED, NEGLECTED, OR IN AN UNSAFE ENVIRONMENT? NO . ENDOCRINOLOGY: ARE YOU DIABETIC? NO . OTHER: DO YOU NEED ANY PRESCRIPTIONS? NO . IF YES, PLEASE LIST: ____ . ANY NEW PROBLEMS WITH YOUR MEDICATIONS? NO . WHEN DID YOU LAST EAT? ____ . WHEN DID YOU LAST DRINK? ____ . WHAT DID YOU LAST DRINK? ____ . NAME OF PERSON DRIVING YOU HOME? ____ . DO YOU HAVE ANY OTHER QUESTIONS OR CONCERNS SOME RELIEF FROM THE BILATERAL SIJ INJECTIONS DONE ON 04/02/16. STATES HE IS STILL HAVING SOME RELIEF BUT CAN FEEL THAT IT'S STARTING TO WEAR OFF. . REVIEWED BY: PROVIDER: ALINE GARCIA . VITAL SIGNS WT 170.8 LBS, HT 70", BMI 24.50 INDEX, BP 134/79 MM HG, HR 89 /MIN, RR 16 /MIN, TEMP 99.4 F, OXYGEN SAT % 99%, NA INITIALS SC 13:56, REVIEWED BY: AD. EXAMINATION GENERAL EXAMINATION: LUNGS:LUNG SOUNDS ARE CLEAR. HEART:HEART RATE REGULAR. MUSCULOSKELETAL:*, PALPATION: NEGATIVE FOR PAIN OVER L/S SPINE. NEGATIVE FOR PAIN OVER L/S PARSPINALS, MUSCLE STRENGTH TESTING 5/5 BILATERAL.SPECIFIC POINT TENDERNESS OVER BILAT. SIJ NOTED.. DIAGNOSTIC: . ASSESSMENTS SACROILIAC JOINT PAIN - M53.3 (PRIMARY) LOW BACK PAIN - M54.5 PRIMARY OSTEOARTHRITIS INVOLVING MULTIPLE JOINTS - M15.0 PROCEDURE CODES FA211 ESTABILISHED PATIENT [facility] FAC[facility] CHARGE DISPOSITION & COMMUNICATION FOLLOW UP 6 WEEKS ELECTRONICALLY SIGNED BY JOSE MAS ON 05/05/2016 AT 02:41 PM EST DISCLAIMER : THIS IS A VISIT SUMMARY EXTRACTED FROM THE [employer] CHART. IT IS NOT A COPY OF THE [employer] PROGRESS NOTE. MTDD
== END ==
LOC: M PAIN 13:30
PROVIDERS: ATTEND Nurse Practitioner Family
DX: Z09 Encounter for follow-up examination after completed treatment for conditions other than malignant neoplasm (principal); G89.29 Other chronic pain; M53.3 Sacrococcygeal disorders, not elsewhere classified; M54.5 Low back pain; M15.0 Primary generalized (osteo)arthritis; K22.70 Barrett's esophagus without dysplasia; M46.1 Sacroiliitis, not elsewhere classified; M47.816 Spondylosis without myelopathy or radiculopathy, lumbar region; M47.817 Spondylosis without myelopathy or radiculopathy, lumbosacral region; G95.29 Other cord compression; F17.200 Nicotine dependence, unspecified, uncomplicated; R51 Headache; Z79.1 Long term (current) use of non-steroidal anti-inflammatories (NSAID); Z79.891 Long term (current) use of opiate analgesic; Z79.899 Other long term (current) drug therapy

== ENCOUNTER → 2017-07-22 | Outpatient (REF) | payer BC ==
[2017-07-22 13:39] LABS: VITAMIN B12 LEVEL 520 PG/ML
[2017-07-22 13:40] LABS: FOLATE 17.6 NG/ML
[2017-07-22 14:05] LABS: ERYTHROCYTE SEDIMENTATION RATE 3 mm/hr (0-20)
[2017-07-22 14:28] LABS: FREE T4 0.97 NG/DL (0.76-1.46); RHEUMATOID FACTOR QUANT < 10.0 IU/ML (<15.0); TOTAL PROTEIN 6.9 GM/DL (6.4-8.2)
[2017-07-23 10:24] LABS: ALBUMIN 4.67 GM/DL (3.29-5.55); ALBUMIN % 67.7 % (55.8-66.1); ALPHA-1-GLOBULIN % 4.6 % (2.9-4.9); ALPHA-1-GLOBULINS 0.32 GM/DL (0.17-0.41); ALPHA-2-GLOBULINS 0.66 GM/DL (0.42-0.99); ALPHA-2-GLOBULINS % 9.5 % (7.1-11.8); BETA-1-GLOBULINS 0.41 GM/DL (0.28-0.60); BETA-2-GLOBULINS 0.28 GM/DL (0.19-0.55); BETA-2-GLOBULINS % 4.1 % (3.2-6.5); GAMMA GLOBULIN % 8.1 % (11.1-18.8); GAMMA GLOBULINS 0.56 GM/DL (0.65-1.58)
== END ==
LOC: M LABNEURO 10:26
DX: M54.2 Cervicalgia (principal); M54.5 Low back pain
CPT/HCPCS: 82746

== ENCOUNTER → 2017-11-02 | Outpatient (REF) | payer BC ==
[2017-11-04 12:33] LABS: TOTAL PROTEIN,RANDOM URINE 12.1 MG/DL (0.0-12.0)
== END ==
LOC: M LABNEURO 13:21
DX: R79.9 Abnormal finding of blood chemistry, unspecified (principal)
CPT/HCPCS: 36415

== ENCOUNTER 2019-07-26 11:11 | Emergency (ER) | payer BC, OTHER ==
[~2019-07-26] VITALS: Ht 175.3 cm; Wt 73.6 kg
[~2019-07-26 11:11] MED LIST changes: -CLON0.5T PO; +CLON0.5T2 PO; +MOBI4TAB PO; -MOBI7.5T10 PO; +NORC1TAB7 PO; -NORC5TAB PO; -OMEP40CA2 PO; +OMEP40CA97 PO; -PRAV10TA PO; +PRAV10TA4 PO
[2019-07-26] MEDS ORDERED: LISI10TA4 (11:18)
[2019-07-26] MEDS ORDERED: EZET10TA21 (11:18)
[2019-07-26] MEDS ORDERED: TRAZ-252 (11:18)
[2019-07-26] MEDS ORDERED: ESCI10TA2 (11:18)
[2019-07-26] MEDS ORDERED: KETOROLAC 30 MG/ML 1ML VIAL IV ONE (11:45)
[2019-07-26 12:08] LABS: BASO # 0.1 10^3/uL (0.0-0.2); BASO % 0.9 % (0.0-1.0); EOS # 0.3 10^3/uL (0.0-0.5); EOS % 3.8 % (0.0-3.0); HEMATOCRIT 40.8 % (42.0-52.0); HEMOGLOBIN 13.7 g/dl (13.5-17.5); LYMPH # 1.5 10^3/uL (1.5-5.0); LYMPH % 22.4 % (24.0-44.0); MEAN CORPUSCULAR HEMOGLOBIN 30.6 pg (27.0-33.0); MEAN CORPUSCULAR HGB CONC 33.6 g/dl (32.0-36.5); MEAN CORPUSCULAR VOLUME 91.1 fl (80.0-96.0); MONO # 0.4 10^3/uL (0.0-0.8); MONO % 6.4 % (0.0-5.0); NEUTROPHILS # 4.4 10^3/uL (1.5-8.5); NEUTROPHILS % 66.2 % (36.0-66.0); PLATELET COUNT, AUTOMATED 196 10^3/uL (150-450); RED BLOOD COUNT 4.48 10^6/uL (4.30-6.10); WHITE BLOOD COUNT 6.6 10^3/uL (4.0-10.0)
[2019-07-26] MEDS ORDERED: ISOVUE-370 76% 100ML VIAL As Ordered ONE (12:17)
[2019-07-26 12:32] LABS: ALBUMIN 3.8 GM/DL (3.2-5.2); BILIRUBIN,DIRECT 0.1 MG/DL (0.0-0.2); BILIRUBIN,TOTAL 0.3 MG/DL (0.2-1.0); TOTAL PROTEIN 6.4 GM/DL (6.4-8.2)
[2019-07-26 13:25] VITALS: BP 165/82
--- NOTE | 2019-07-26 14:12 | REP ---
REASON: Periumbilical pain. COMPARISON: None. CONTRAST: 100 mL Isovue 370. The lung bases are clear. The liver, gallbladder, spleen, pancreas, adrenal glands and kidneys are within normal limits. The abdominal aorta and para-aortic regions are within normal limits. The bowel loops and their mesenteries are within normal limits. The appendix is well visualized and is within normal limits. There is no free fluid or free air. There is no intra-abdominal mass or adenopathy. CT PELVIS: Scattered sigmoid colon diverticula are present. The bowel loops are otherwise unremarkable. There is no mass or adenopathy. There is no free fluid or free air. Bone window technique through the examination shows the osseous structures to be within normal limits. IMPRESSION: There is mild sigmoid colon diverticulosis. There is no evidence of acute intra-abdominal or intrapelvic disease. Electronically Signed by Loyd Duncan DO 07/26/2019 02:14 P
== END 2019-07-26 13:47 | disposition home or self-care (01) ==
LOC: M ED 11:11
DX: S39.011A Strain of muscle, fascia and tendon of abdomen, initial encounter (principal); X58.XXXA Exposure to other specified factors, initial encounter; Y92.89 Other specified places as the place of occurrence of the external cause; I10 Essential (primary) hypertension; E78.5 Hyperlipidemia, unspecified; K22.70 Barrett's esophagus without dysplasia; G25.81 Restless legs syndrome; Z79.899 Other long term (current) drug therapy; F17.210 Nicotine dependence, cigarettes, uncomplicated
CPT/HCPCS: 74177; 80047; 80076; 81001; 83690; 85025; 96374; 99284; J1885; Q9967

== ENCOUNTER → 2019-09-13 | Outpatient (RCR) | payer OTHER ==
[~2019-09-13] MED LIST changes: +ASPI81TA86 PO; +ESCI10TA2; +EZET10TA21; +LISI10TA4; +METH750T2 PO; +NAPR500T6 PO; +NICO4GUM42 PO; +OXYC1TAB15 PO; +TRAZ-252
== END ==
LOC: M PT 08-24 09:53
PROVIDERS: ATTEND Physician Assistant
DX: S39.011D Strain of muscle, fascia and tendon of abdomen, subsequent encounter (principal)

== ENCOUNTER 2019-10-03 10:08 | Emergency (ER) | payer OTHER ==
[~2019-10-03] VITALS: Ht 177.8 cm; Wt 70.8 kg
[~2019-10-03 10:08] MED LIST changes: -ASPI81TA86 PO; -METH750T2 PO; -NAPR500T6 PO; -NICO4GUM42 PO; -OXYC1TAB15 PO
[2019-10-03 10:43] LABS: BASO # 0.1 10^3/uL (0.0-0.2); BASO % 0.7 % (0.0-1.0); EOS # 0.1 10^3/uL (0.0-0.5); EOS % 1.3 % (0.0-3.0); HEMATOCRIT 40.3 % (42.0-52.0); HEMOGLOBIN 13.8 g/dl (13.5-17.5); LYMPH # 1.6 10^3/uL (1.5-5.0); LYMPH % 18.8 % (24.0-44.0); MEAN CORPUSCULAR HEMOGLOBIN 30.8 pg (27.0-33.0); MEAN CORPUSCULAR HGB CONC 34.2 g/dl (32.0-36.5); MONO # 0.5 10^3/uL (0.0-0.8); MONO % 5.2 % (0.0-5.0); NEUTROPHILS # 6.4 10^3/uL (1.5-8.5); NEUTROPHILS % 73.8 % (36.0-66.0); PLATELET COUNT, AUTOMATED 222 10^3/uL (150-450); RED BLOOD COUNT 4.48 10^6/uL (4.30-6.10); WHITE BLOOD COUNT 8.6 10^3/uL (4.0-10.0)
--- NOTE | 2019-10-03 10:51 | REP ---
Clinical: Acute chest pain . Comparison: 07/27/2015 . Findings: The mediastinum and cardiac silhouette are stable and within normal limits for portable technique. The lung munoz are clear without acute consolidation, effusion, or pneumothorax. Skeletal structures are intact. Impression: No acute cardiopulmonary process appreciated. Electronically Signed by Collins Zamorano MD 10/03/2019 10:43 A
[2019-10-03 11:10] LABS: BLOOD UREA NITROGEN 15 MG/DL (7-18); CALCIUM LEVEL 9.5 MG/DL (8.5-10.1); CARBON DIOXIDE LEVEL 28 MEQ/L (21-32); CHLORIDE LEVEL 105 MEQ/L (98-107); CREATININE FOR GFR 0.98 MG/DL (0.70-1.30); GLOMERULAR FILTRATION RATE > 60.0 (>56); GLUCOSE, FASTING 123 MG/DL (70-100); SODIUM LEVEL 138 MEQ/L (136-145)
[2019-10-03] MEDS ORDERED: NICO4GUM42 PO (11:37)
[2019-10-03] MEDS ORDERED: METH750T2 PO (11:37)
[2019-10-03] MEDS ORDERED: OXYC1TAB15 PO (11:37)
[2019-10-03 11:38] LABS: ALBUMIN 4.2 GM/DL (3.2-5.2); ALT/SGPT 31 U/L (12-78); BILIRUBIN,DIRECT < 0.1 MG/DL (0.0-0.2); BILIRUBIN,TOTAL 0.4 MG/DL (0.2-1.0); LIPASE 117 U/L (73-393); TOTAL PROTEIN 7.2 GM/DL (6.4-8.2)
[2019-10-03] MEDS ORDERED: ASPI81TA86 PO (13:38)
[2019-10-03 13:53] VITALS: BP 135/76
--- NOTE | 2019-10-04 07:17 | ECGEPIP ---
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
--- NOTE | 2019-10-04 07:27 | ECGEPIP ---
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
== END 2019-10-03 14:05 | disposition home or self-care (01) ==
LOC: M ED 10:08
DX: R07.89 Other chest pain (principal); I10 Essential (primary) hypertension; E78.5 Hyperlipidemia, unspecified; K21.9 Gastro-esophageal reflux disease without esophagitis; K22.70 Barrett's esophagus without dysplasia; G25.81 Restless legs syndrome; F17.210 Nicotine dependence, cigarettes, uncomplicated; Z79.82 Long term (current) use of aspirin; Z79.899 Other long term (current) drug therapy

== ENCOUNTER → 2019-10-10 | Outpatient (CLI) | payer OTHER ==
[~2019-10-10] MED LIST changes: +ASPI81TA86 PO; +METH750T2 PO; +NAPR500T6 PO; +NICO4GUM42 PO; +OXYC1TAB15 PO
== END ==
LOC: M RAD 13:27
PROVIDERS: ATTEND Family Medicine
DX: Z12.2 Encounter for screening for malignant neoplasm of respiratory organs (principal); F17.210 Nicotine dependence, cigarettes, uncomplicated

== ENCOUNTER → 2019-10-17 | Outpatient (POV) | payer OTHER | LOC: M PAIN 09:00 | PROVIDERS: ATTEND Nurse Practitioner Family | DX: M54.2 Cervicalgia (principal) ==

== ENCOUNTER 2019-11-30 08:41 | Emergency (ER) | payer OTHER ==
[~2019-11-30] VITALS: Ht 175.3 cm; Wt 78.0 kg
[~2019-11-30 08:41] MED LIST changes: -NAPR500T6 PO
[2019-11-30] MEDS ORDERED: NAPR500T6 PO (08:48)
[2019-11-30] MEDS ORDERED: PERCOCET 5MG/325MG TAB PO ONE (09:30)
--- NOTE | 2019-11-30 09:46 | REPVR ---
PROCEDURE INFORMATION: Exam: XR Left Shoulder Exam date and time: 11/30/2019 9:29 AM Age: 54 years old Clinical indication: Injury or trauma; Injury history: Lifting at work; Work related; Initial encounter; Sprain or strain; Shoulder; Left; Additional info: Injury/? Dislocation TECHNIQUE: Imaging protocol: XR Left shoulder. Views: 2 or more views. COMPARISON: MRI-Shoulder W/O CONTRAST 08/21/2015 3:47 PM FINDINGS: Bones/joints: Degenerative changes in the acromioclavicular joint. Soft tissues: Normal. IMPRESSION: No acute fractures or dislocations. Electronically signed by: Yovany Ott On 11/30/2019 09:45:33 AM
[2019-11-30 10:24] VITALS: BP 158/80
== END 2019-11-30 10:25 | disposition home or self-care (01) ==
LOC: M ED 08:41
DX: S43.422A Sprain of left rotator cuff capsule, initial encounter (principal); X50.0XXA Overexertion from strenuous movement or load, initial encounter; Y99.0 Civilian activity done for income or pay; F17.200 Nicotine dependence, unspecified, uncomplicated; Z79.82 Long term (current) use of aspirin; Z79.899 Other long term (current) drug therapy

== ENCOUNTER → 2020-02-29 | Outpatient (CLI) | payer OTHER ==
[~2020-02-29] MED LIST changes: +NAPR500T6 PO
--- NOTE | 2020-03-01 23:34 | ECWPNPC ---
PATIENT NAME: ROSSY ACUÑA : 1965 GENDER: MALE VISIT DATE: 02/29/2020 DISCHARGE DATE: 02/29/20 1115 VISIT LOCKED DATE TIME: PHYSICIAN: ALINE HICKMAN RESOURCE: ALINE HICKMAN REASON FOR APPOINTMENT 1. NECK/BACK PAIN HISTORY OF PRESENT ILLNESS DEPRESSION SCREENING: PHQ-2 (2015 EDITION) LITTLE INTEREST OR PLEASURE IN DOING THINGS?SEVERAL DAYS FEELING DOWN, DEPRESSED, OR HOPELESS?NOT AT ALL TOTAL SCORE1 GENERAL: 55-YEAR-OLD GENTLEMAN KNOWN TO OUR PRACTICE RETURNS WITH CHIEF COMPLAINT OF LOW BACK PAIN. ALSO SUFFERS FROM GENERALIZED BACK PAIN. PAIN IS LOCATED ACROSS HIS BACK RIGHT GREATER THAN LEFT . PAIN RADIATES INTO BOTH LEGS RIGHT GREATER THAN LEFT. PAIN IS AGGRAVATED BY PROLONGED STANDING OR BENDING. DENIES CHANGES IN BOWEL OR BLADDER HABITS. DENIES RECENT ILLNESS OR SUDDEN WEIGHT LOSS. DENIES SADDLE PARESTHESIAS. DENIES RECENT INJURY. STATES PAIN BEGAN SEVERAL YEARS AGO IN HIS 20S AFTER LIFTING A HEAVY PIECE OF EQUIPMENT. 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 - - -. FALL RISK SCREENING: SCREENING :NO FALLS REPORTED IN THE LAST YEAR PAIN SCREENING: PATIENT HAS A COMPLAINT OF ACUTE OR CHRONIC PAIN :YES LOCATION OF PAIN:NECK INTENSITY OF PAIN (SCALE OF 1 TO 10):8 SEE DIAGRAM WHAT DOES YOUR PAIN FEEL LIKE:CONTINOUS, SHOOTING, THROBBING, TENDER, STABBING, SHARP PAIN IS INCREASED BY:ACTIVITIES PAIN IS DECREASED BY:OTHERS TREATMENT/MEDICATIONS USED TO MANAGE PAIN: RESTING HELPS NURSING NOTE: - - -. PAIN CENTER INTAKE QUESTIONS: DO YOU HAVE A HISTORY OF MRSA? :NO DO YOU TAKE A BLOOD THINNERS? :NO DO YOU HAVE ANY BLEEDING DISORDERS? :NO ANY NEW NUMBNESS OR WEAKNESS IN YOUR LEGS OR ARMS? :NO ANY PACEMAKER,DEFIBRILLATOR, OR DORSAL COLUMN STIMULATOR? :NO DO YOU HAVE ANY RASHES OR OPEN SORES? :NO ARE YOU ALLERGIC TO IV DYE? :NO ARE YOU DIABETIC? :NO ANY NEW PROBLEMS WITH YOUR MEDICATIONS? :NO HAVE YOU RECEIVED A VACCINE IN THE PAST 30 DAYS? :NO DO YOU PLAN TO RECEIVE A VACCINE IN THE NEXT 21 DAYS? :NO DO YOU NEED ANY PRESCRIPTION? :NO DO YOU TAKE ANY IMMUNOSUPPRESSIVE MEDICATIONS? :NO CURRENT MEDICATIONS TAKING OMEPRAZOLE 40 MG CAPSULE DELAYED RELEASE 1 CAPSULE ORALLY ONCE A DAY TAKING IBUPROFEN 400 MG TABLET 1 TABLET ORALLY THREE TIMES A DAY PRN TAKING LISINOPRIL 5 MG TABLET 3 ORALLY DAILY TAKING PERCOCET 7.5-325 MG TABLET 1 TABLET NEEDED ORALLY DAILY TAKING METHOCARBAMOL 750 MG TABLET 1 TABLET ORALLY BID TAKING EZETIMIBE 10 MG TABLET 1 TABLET ORALLY ONCE A DAY TAKING ESCITALOPRAM OXALATE 10 MG TABLET 1 TABLET ORALLY ONCE A DAY TAKING TRAZODONE HCL 50 MG TABLET 1 TABLET AT BEDTIME NEEDED ORALLY ONCE A DAY TAKING HYDROXYZINE PAMOATE 25 MG CAPSULE 1 CAPSULE NEEDED ORALLY EVERY 8 HRS NOT-TAKING MELOXICAM 7.5 MG TABLET 1 TABLET ORALLY ONCE A DAY NOT-TAKING PRAVASTATIN SODIUM 20 MG TABLET ORAL DAILY NOT-TAKING ROPINIROLE HCL 1 MG TABLET ORAL FOUR TIMES DAILY NOT-TAKING CYCLOBENZAPRINE HCL 5 MG TABLET 1 TABLET ORALLY THREE TIMES A DAY PRN NOT-TAKING NYSTATIN 001950 UNIT/ML SUSPENSION 5ML MOUTH/THROAT 5X/DAY NOT-TAKING FIORICET 1 CAP EVERY 4 HOURS NEEDED NOT-TAKING DOXYCYCLINE (ROSACEA) 100 MG 1 TAB ORALLY Q 12 HOURS MEDICATION LIST REVIEWED AND RECONCILED WITH THE PATIENT PAST MEDICAL HISTORY BARRETTS ESOPHAGUS NECK PAIN OSTEO ARTHRITUS CRUSHED SPINAL CORD - NERVE CONDUCTION TEST SHOWED MISFIRING NERVES GENERALIZED MUSCLE WEAKNESS LOWER BACK PAIN REFLUX INSOMNIA ALLERGIES N.K.D.A. SURGICAL HISTORY CERVICAL 5,6,7 FUSION DONE TO KEEP SYMPTOMS FROM PROGRESSING 09/11/15 PROCEDURES EGD AND COLONOSCOPIES FAMILY HISTORY FATHER: ALIVE 76 YRS MOTHER: ALIVE 76 YRS SIBLINGS: ALIVE SON(S): ALIVE 2 SON(S) - HEALTHY. FATHER: FIBROMYALGIA, OSTEO [id number], OSTEO ARTHRITISBOTHER-OSTEO ARTHRITIS, MACULAR DEGENERATION. SOCIAL HISTORY GENERAL: TOBACCO USE ARE YOU A:CURRENT SMOKER ARE YOU INTERESTED IN QUITTING?THINKING ABOUT QUITTING COUNSELED THE PATIENT ON SMOKING CESSATION, EDUCATION [id number]/16/2020 HOW MANY CIGARETTES A DAY DO YOU SMOKE?11-20 HOW SOON AFTER YOU WAKE UP DO YOU SMOKE YOUR FIRST CIGARETTE?WITHIN 5 MIN PATIENT COUNSELED ON THE DANGERS OF TOBACCO USE AND URGED TO QUIT:02/28/2020 WE DISCUSSED CUTTING DOWN TO FEW POSSIBLE LATEX QUESTIONNAIRE LATEX ALLERGY : HAVE YOU EVER DEVELOPED ANY TYPE OF REACTION AFTER HANDLING LATEX PRODUCTS SUCH RUBBER GLOVES, CONDOMS, DIAPHRAGMS, BALLOONS, SOCKS, OR UNDERWEAR?NO LATEX ALLERGY : HAVE YOU EVER DEVELOPED ANY TYPE OF REACTION DURING OR AFTER DENTAL APPOINTMENT, VAGINAL/RECTAL EXAMINATION, SURGICAL PROCEDURE, OR ANY OTHER EXPOSURE?NO LATEX RISK : HAVE YOU EVER HAD ANY DIFFICULTY BREATHING OR HIVES AFTER EATING OR HANDLING ANY FRUITS, OR VEGETABLES; SUCH KIWI, BANANAS, STONE FRUITS, OR CHESTNUTSNO LATEX RISK : DO YOU HAVE A PREVIOUS PERSONAL HISTORY OF MORE THAN NINE SURGERIES, SPINA BIFIDA, OR REPEATED CATHERIZATIONS? NO LATEX RISK : ARE YOU FREQUENTLY EXPOSED TO LATEX PRODUCTS IN YOUR OCCUPATION?NO DATE ASKED : 02/29/2020 ALCOHOL SCREENING DID YOU HAVE A DRINK CONTAINING ALCOHOL IN THE PAST YEAR?YES HOW OFTEN DID YOU HAVE A DRINK CONTAINING ALCOHOL IN THE PAST YEAR?TWO TO FOUR TIMES A MONTH (2 POINTS) HOW MANY DRINKS DID YOU HAVE ON A TYPICAL DAY WHEN YOU WERE DRINKING IN THE PAST YEAR?5 OR 6 (2 POINTS) POINTS4 INTERPRETATIONPOSITIVE RECREATIONAL DRUG USE DRUG USE? NO. CAFFEINE CAFFEINE USE?YES HOW OFTEN AND HOW MUCH? 3 CUPS COFFEE IN THE AM [place] NO RASTAFARIAN BELIEFS THAT WOULD IMPACT HEALTH CARE. LANGUAGE LANGUAGES SPOKEN:ST [place] EDUCATION LEVEL OF EDUCATION:HIGH SCHOOL LEARNING BARRIERS / SPECIAL NEEDS BARRIERS TO LEARNING?NO HEARING IMPAIRED?NO VISION IMPAIRED?NO COGNITIVELY IMPAIRED?NO READINESS TO LEARN?YES LEARNING PREFERENCES?NO LEARNING CAPABILITIES PRESENT?YES EMOTIONAL BARRIERS?NO SPECIAL DEVICES?NO INCIDENT ENGINEER NEEDED?NO DIET: REGULAR. EXERCISE: DAILY, WALKS. PRECIPITATING FACTORS STANDING, STOOPING, SITTING, BENDING, LIFTING, TURNING HEAD ALLEVIATING FACTORS SLEEPING IMPACT ON FUNCTION BARELY CAN GET OUT OF BED, THEN IT LESSONS, THEN WORSE BY THE END OF THE DAY PAIN CLINIC PFS, CLERGY, PUBLIC HEALTH REFERRALS PFS REFERRAL NEEDED?NO CLERGY REFERRAL NEEDED?NO PUBLIC HEALTH REFERRAL NEEDED?NO HAS THE PATIENT BEEN EDUCATED REGARDING HIS/HER PLAN OF CARE?YES HAS THE PATIENT BEEN EDUCATED REGARDING PAIN, THE RISK FOR PAIN, THE IMPORTANCE OF EFFECTIVE PAIN MANAGEMENT, AND THE PAIN ASSESSMENT PROCESS?YES ADVANCE DIRECTIVE ADVANCE DIRECTIVE DISCUSSED WITH PATIENT:YES PT. STATES HE DOES NOT HAVE ANY ADVANCE DIRECTIVES. HCP INFORMATION WAS GIVEN TO PATIENT AND ASSISTANCE WAS OFFERED IN COMPLETING FORM IF NEEDED. PT. VERBALIZED UNDERSTANDING. HOSPITALIZATION/MAJOR DIAGNOSTIC PROCEDURE SURGERIES REVIEW OF SYSTEMS CONSTITUTIONAL: ANY RECENT FEVER NO . CHILLS NO . WEIGHT CHANGE OF UNKNOWN REASONS NO . GASTROENTEROLOGY: NEW UNEXPLAINABLE CHANGES IN BOWEL CONTROL NO . CONSTIPATION NO . GENITOURINARY: ANY NEW CHANGE IN BLADDER CONTROL? NO . NEUROLOGY: NEW ONSET DIZZINESS OR NEUROLOGICAL CHANGES NOT MENTIONED NO . NEW NUMBNESS OR PAIN PATTERNS NOT MENTIONED AND PERTINENT TO TODAY'S VISIT NO . CARDIOLOGY: NEW CHEST PRESSURE NO . NEW CHEST PAIN NO . RESPIRATORY: UNEXPLAINABLE COUGH NO . NEW SHORTNESS OF BREATH NO . VITAL SIGNS WT 178.0 LBS, HT 70", BMI 25.54 INDEX, BP 140/72 MM HG, HR 68 /MIN, RR 18 /MIN, TEMP 98.6 F, OXYGEN SAT % 100%, SAFE IN ENV? (Y/N) Y, NA INITIALS AW 1011, REVIEWED BY: Rosa WALLACE RN 1022. EXAMINATION GENERAL EXAMINATION: GENERALNO ACUTE DISTRESS, WELL NOURISHED AND HYDRATED. PSYCHAPPROPRIATE MOOD AND AFFECT . NECK:NO LYMPHADENOPATHY, SUPPLE. LUNGS: LUNG SOUNDS ARE CLEAR . HEART: HEART RATE REGULAR . MUSCULOSKELETAL:*, MUSCLE STRENGTH TESTING 5/5 BILATERAL LOWER EXTREMITIES., ,PALPATION: SPECIFIC POINT TENDERNESS OVER BILAT L4/5-L5/S1 LUMBR FACETS WITH FACET LOADING . NEUROLOGIC EXAM:NORMAL SENSATION TO LIGHT TOUCH LOWER EXTREMITIES. . DIAGNOSTIC TESTS REVIEWED MRI L/S SPINE 06/2019. DIAGNOSTIC:MRI L/S SPINE . ASSESSMENTS LUMBOSACRAL SPONDYLOSIS WITHOUT MYELOPATHY - M47.817 (PRIMARY) TREATMENT LUMBOSACRAL SPONDYLOSIS WITHOUT MYELOPATHY NOTES: CONTINUE HOME EXERCISE AND STRETCHING. CONTINUE USE OF NONSTEROIDALS FOR SEVERE PAIN EPISODES. SCHEDULED FOR BILATERAL L4-5, L5-S1 LUMBAR FACET BLOCK THERAPEUTIC . CONSIDER DIAGNOSTIC TESTING/ RADIOFREQUENCY PENDING RESULTS OF THERAPEUTIC FACET BLOCK. PREVENTIVE MEDICINE PAIN CLINIC TEACHING: PROCEDURE TEACHING PRINTED INFORMATION GIVEN ON LUMBAR FACET BLOCK ALONG WITH PRE-PROCEDURE INSTRUCTIONS. INFORMATION REVIEWED WITH PT AND HE VERBALIZED UNDERSTANDING. PROCEDURE CODES FA211 ESTABILISHED PATIENT [facility] FACILITY CHARGE DISPOSITION & COMMUNICATION FOLLOW UP POST PROCEDURE (REASON: BILATERAL L4-5, L5-S1 THERAPEUTIC LUMBAR FACET BLOCK) ELECTRONICALLY SIGNED BY JOSE DOWNEY ON 03/01/2020 AT 12:54 PM EST DISCLAIMER : THIS IS A VISIT SUMMARY EXTRACTED FROM THE [employer] CHART. IT IS NOT A COPY OF THE [employer] PROGRESS NOTE. GABRIELA
== END ==
LOC: M PAIN 10:00
PROVIDERS: ATTEND Nurse Practitioner Family
DX: M47.817 Spondylosis without myelopathy or radiculopathy, lumbosacral region (principal); K21.9 Gastro-esophageal reflux disease without esophagitis; G47.00 Insomnia, unspecified; F17.210 Nicotine dependence, cigarettes, uncomplicated; Z79.899 Other long term (current) drug therapy

== ENCOUNTER → 2020-03-23 | Outpatient (CLI) | payer OTHER ==
[2020-03-23 14:36] LABS: MAGNESIUM LEVEL 2.2 MG/DL (1.8-2.4); PHOSPHORUS LEVEL 3.2 MG/DL (2.5-4.9); THYROID STIMULATING HORMONE 0.869 uIU/ML (0.358-3.740); TOTAL 25(OH) VITAMIN D 24.4 NG/ML (30.0-100.0)
== END ==
LOC: M LAB 12:27
PROVIDERS: ATTEND Internal Medicine
DX: M79.10 Myalgia, unspecified site (principal)

== ENCOUNTER → 2020-03-30 | Outpatient (CLI) | payer OTHER ==
[~2020-03-30] MED LIST changes: +ESCI10TA16; -ESCI10TA2
== END ==
LOC: M LABSMTC 09:41
PROVIDERS: ATTEND Anesthesiology
DX: Z20.822 Contact with and (suspected) exposure to COVID-19 (principal)

== ENCOUNTER → 2020-04-04 | Outpatient (CLI) | payer OTHER ==
[~2020-04-04] MED LIST changes: +BUPIVACAINE HCL 0.25% 30ML VIAL As Ordered ONE; +ISOVUE-M 300 61% 15ML VIAL As Ordered ONE; +LIDOCAINE 1% SDV 30ML VIAL As Ordered ONE; +LISI10TA22; -LISI10TA4; +METH-1165 PO; -METH750T2 PO; +TRIAMCINOLONE ACETONIDE SUSP 40 MG/ML VIAL (J3301) As Ordered ONE; +diazePAM 5MG TABLET As Ordered ONE; +oxyCODONE 5MG TAB As Ordered ONE
--- NOTE | 2020-04-04 11:54 | REP ---
INDICATION: BILATERAL THERAPEUTIC LUMBAR FACET BLOCK-L4-L5, L5-S1. COMPARISON: None. TECHNIQUE: Two views. 36.1 seconds of fluoroscopy time is reported. FINDINGS: A sequence of 2 last image hold fluoroscopically obtained spot radiograph(s) of the lumbar spine document(s) needle position(s) and contrast injection associated with injection procedure. IMPRESSION: Procedural imaging. <Electronically signed by Deng Alonzo > 04/04/20 [id number]
--- NOTE | 2020-04-05 02:21 | ECWPNPC ---
PATIENT NAME: ROSSY ACUÑA : 1965 GENDER: MALE VISIT DATE: 04/04/2020 DISCHARGE DATE: 04/04/20 1140 VISIT LOCKED DATE TIME: PHYSICIAN: MAURICIO ALEXANDRE MD RESOURCE: MAURICIO ALEXANDRE MD REASON FOR APPOINTMENT 1. BILATERAL THERAPEUTIC LUMBAR FACET BLOCK L4-L5, L5-S1 HISTORY OF PRESENT ILLNESS GENERAL: -. FALL RISK SCREENING: SCREENING :NO FALLS REPORTED IN THE LAST YEAR PAIN SCREENING: PATIENT HAS A COMPLAINT OF ACUTE OR CHRONIC PAIN :YES LOCATION OF PAIN:LOW BACK, LEFT HIP, RIGHT HIP, LEG(S) LEFT HIP GREAT THAN RIGHT INTENSITY OF PAIN (SCALE OF 1 TO 10):4 AVERAGE 4-9 DEPENDING ON ACTIVITY WHAT DOES YOUR PAIN FEEL LIKE:ACHING, CONTINOUS, STABBING, SHOOTING DURATION:CONTINOUS, CONSTANT, AWAKENS FROM SLEEP SOMETIMES WAKES HIM AT NIGHT PAIN IS INCREASED BY:ACTIVITIES, PROLONGED STANDING, OTHERS PROLONGED SITTING, BENDING OVER PAIN IS DECREASED BY:OTHERS LAYING IN BED NURSING NOTE: -. PAIN CENTER INTAKE QUESTIONS: DO YOU HAVE A HISTORY OF MRSA? :NO DO YOU TAKE A BLOOD THINNERS? :NO DO YOU HAVE ANY BLEEDING DISORDERS? :NO ANY NEW NUMBNESS OR WEAKNESS IN YOUR LEGS OR ARMS? :NO ANY PACEMAKER,DEFIBRILLATOR, OR DORSAL COLUMN STIMULATOR? :NO DO YOU HAVE ANY RASHES OR OPEN SORES? :NO ARE YOU ALLERGIC TO IV DYE? :NO ARE YOU DIABETIC? :NO ANY NEW PROBLEMS WITH YOUR MEDICATIONS? :NO HAVE YOU RECEIVED A VACCINE IN THE PAST 30 DAYS? :NO DO YOU PLAN TO RECEIVE A VACCINE IN THE NEXT 21 DAYS? :NO DO YOU TAKE ANY IMMUNOSUPPRESSIVE MEDICATIONS? :NO ANY HISTORY OF SEIZURES? :NO ANY HISTORY OF CARDIAC ISSUES OR EVENTS? :NO DO YOU HAVE SLEEP APNEA? :YES DO YOU WEAR A CPAP?NO COULDN'T TOLERATE ANY RECENT HEAD INJURY? :NO DO YOU HAVE ANY NEW INFECTIONS? :NO IS THERE A CHANCE YOU COULD BE ? :NO ARE YOU BREAST FEEDING? :NO WHEN DID YOU LAST EAT? : 04/03 1899 WHEN DID YOU LAST DRINK? : 04/04 429 WHAT DID YOU LAST DRINK? : WATER WITH PILLS NAME OF PERSON DRIVING YOU HOME? : JEREMY CORDOVA DO YOU HAVE ANY OTHER QUESTIONS OR CONCERNS? : WOULD LIKE PRE-SEDATE CURRENT MEDICATIONS TAKING OMEPRAZOLE 40 MG CAPSULE DELAYED RELEASE 1 CAPSULE ORALLY ONCE A DAY TAKING LISINOPRIL 5 MG TABLET TAKE 3 TABLETS ORALLY DAILY, NOTES: 04/04 429 TAKING PERCOCET 7.5-325 MG TABLET 1 TABLET NEEDED ORALLY DAILY, NOTES: 04/04 429 TAKING METHOCARBAMOL 750 MG TABLET 1 TABLET ORALLY BID, NOTES: 04/03 2099 TAKING EZETIMIBE 10 MG TABLET 1 TABLET ORALLY ONCE A DAY, NOTES: 04/03 2099 TAKING ESCITALOPRAM OXALATE 10 MG TABLET 1 TABLET ORALLY ONCE A DAY TAKING TRAZODONE HCL 50 MG TABLET 1 TABLET AT BEDTIME NEEDED ORALLY ONCE A DAY, NOTES: 04/03 2099 TAKING HYDROXYZINE PAMOATE 25 MG CAPSULE 1-3 CAPSULE NEEDED ORALLY EVERY 8 HRS TAKING VITAMIN D (ERGOCALCIFEROL) 1.25 MG (96341 UT) CAPSULE 1 CAPSULE ORALLY WEEKLY NOT-TAKING IBUPROFEN 400 MG TABLET 1 TABLET ORALLY THREE TIMES A DAY PRN MEDICATION LIST REVIEWED AND RECONCILED WITH THE PATIENT PAST MEDICAL HISTORY BARRETTS ESOPHAGUS NECK PAIN OSTEOARTHRITIS CRUSHED SPINAL CORD - NERVE CONDUCTION TEST SHOWED MISFIRING NERVES GENERALIZED MUSCLE WEAKNESS LOWER BACK PAIN ACID REFLUX INSOMNIA LICHEN PLANUS ALLERGIES N.K.D.A. SURGICAL HISTORY CERVICAL 5,6,7 FUSION DONE TO KEEP SYMPTOMS FROM PROGRESSING 09/11/15 PROCEDURES EGD AND COLONOSCOPIES FAMILY HISTORY FATHER: ALIVE 76 YRS MOTHER: ALIVE 76 YRS SIBLINGS: ALIVE SON(S): ALIVE 2 SON(S) - HEALTHY. FATHER: FIBROMYALGIA, [id number]-SIGZDUELSUGA, OSTEOARTHRITISBOTHER-OSTEOARTHRITIS, MACULAR DEGENERATIONPATERNAL SIDE 6 UNCLES HAVE FROM DIFFERENT TYPES OF CANCER, COLON, PROSTATE. SOCIAL HISTORY GENERAL: TOBACCO USE ARE YOU A:CURRENT SMOKER ARE YOU INTERESTED IN QUITTING?THINKING ABOUT QUITTING COUNSELED THE PATIENT ON SMOKING CESSATION, EDUCATION [id number]/16/2020 HOW MANY CIGARETTES A DAY DO YOU SMOKE?11-20 HOW SOON AFTER YOU WAKE UP DO YOU SMOKE YOUR FIRST CIGARETTE?WITHIN 5 MIN PATIENT COUNSELED ON THE DANGERS OF TOBACCO USE AND URGED TO QUIT:02/28/2020 WE DISCUSSED CUTTING DOWN TO FEW POSSIBLE LATEX QUESTIONNAIRE LATEX ALLERGY : HAVE YOU EVER DEVELOPED ANY TYPE OF REACTION AFTER HANDLING LATEX PRODUCTS SUCH RUBBER GLOVES, CONDOMS, DIAPHRAGMS, BALLOONS, SOCKS, OR UNDERWEAR?NO LATEX ALLERGY : HAVE YOU EVER DEVELOPED ANY TYPE OF REACTION DURING OR AFTER DENTAL APPOINTMENT, VAGINAL/RECTAL EXAMINATION, SURGICAL PROCEDURE, OR ANY OTHER EXPOSURE?NO LATEX RISK : HAVE YOU EVER HAD ANY DIFFICULTY BREATHING OR HIVES AFTER EATING OR HANDLING ANY FRUITS, OR VEGETABLES; SUCH KIWI, BANANAS, STONE FRUITS, OR CHESTNUTSNO LATEX RISK : DO YOU HAVE A PREVIOUS PERSONAL HISTORY OF MORE THAN NINE SURGERIES, SPINA BIFIDA, OR REPEATED CATHERIZATIONS? NO LATEX RISK : ARE YOU FREQUENTLY EXPOSED TO LATEX PRODUCTS IN YOUR OCCUPATION?YES DATE ASKED : 04/04/2020 ALCOHOL SCREENING DID YOU HAVE A DRINK CONTAINING ALCOHOL IN THE PAST YEAR?YES HOW OFTEN DID YOU HAVE SIX OR MORE DRINKS ON ONE OCCASION IN THE PAST YEAR?WEEKLY (3 POINTS) HOW MANY DRINKS DID YOU HAVE ON A TYPICAL DAY WHEN YOU WERE DRINKING IN THE PAST YEAR?5 OR 6 (2 POINTS) HOW OFTEN DID YOU HAVE A DRINK CONTAINING ALCOHOL IN THE PAST YEAR?TWO TO FOUR TIMES A MONTH (2 POINTS) POINTS7 INTERPRETATIONPOSITIVE RECREATIONAL DRUG USE DRUG USE?NO CAFFEINE CAFFEINE USE?YES HOW OFTEN AND HOW MUCH? 3 CUPS COFFEE IN THE AM PRESYBETERIAN NO CHRISTIAN BELIEFS THAT WOULD IMPACT HEALTH CARE. LANGUAGE LANGUAGES SPOKEN:[place] EDUCATION LEVEL OF EDUCATION:HIGH SCHOOL LEARNING BARRIERS / SPECIAL NEEDS BARRIERS TO LEARNING?NO HEARING IMPAIRED?NO VISION IMPAIRED?NO COGNITIVELY IMPAIRED?NO READINESS TO LEARN?YES LEARNING PREFERENCES?NO LEARNING CAPABILITIES PRESENT?YES EMOTIONAL BARRIERS?NO SPECIAL DEVICES?NO REEL HOOKER NEEDED?NO DOMESTIC VIOLENCE DO YOU FEEL SAFE IN YOUR ENVIRONMENT?YES DIET: REGULAR. EXERCISE: DAILY, WALKS. PRECIPITATING FACTORS STANDING, STOOPING, SITTING, BENDING, LIFTING, TURNING HEAD ALLEVIATING FACTORS SLEEPING IMPACT ON FUNCTION BARELY CAN GET OUT OF BED, THEN IT LESSONS, THEN WORSE BY THE END OF THE DAY - PFS REFERRAL NEEDED?NO CLERGY REFERRAL NEEDED?NO PUBLIC HEALTH REFERRAL NEEDED?NO HAS THE PATIENT BEEN EDUCATED REGARDING HIS/HER PLAN OF CARE?YES HAS THE PATIENT BEEN EDUCATED REGARDING PAIN, THE RISK FOR PAIN, THE IMPORTANCE OF EFFECTIVE PAIN MANAGEMENT, AND THE PAIN ASSESSMENT PROCESS?YES ADVANCE DIRECTIVE ADVANCE DIRECTIVE DISCUSSED WITH PATIENT:YES 04/04/20 PT. STATES HE DOES NOT HAVE ANY ADVANCE DIRECTIVES. HCP INFORMATION WAS GIVEN TO PATIENT AND ASSISTANCE WAS OFFERED IN COMPLETING FORM IF NEEDED. ALCOHOL USE: 3-4 DRINKS/WEEK. HOSPITALIZATION/MAJOR DIAGNOSTIC PROCEDURE SURGICAL RELATED VITAL SIGNS WT 174.4 LBS, HT 69 IN, BMI 25.75 INDEX, BP 140/76 MM HG, HR 68 /MIN, RR 18 /MIN, TEMP 97.4 F, OXYGEN SAT % 98%, SAFE IN ENV? (Y/N) Y, NA INITIALS AW 0928, REVIEWED BY: Rosa WALLACE RN 0945. EXAMINATION GENERAL EXAMINATION: THE PATIENT IS ALERT, ORIENTED TIMES THREE AND COOPERATIVE. LUNGS ARE CLEAR TO AUSCULTATION. HEART SHOWS REGULAR RHYTHM, NO MURMURS AND NO GALLOPS. ASSESSMENTS SPONDYLOSIS WITHOUT MYELOPATHY OR RADICULOPATHY, LUMBAR REGION - M47.816 (PRIMARY) SPONDYLOSIS WITHOUT MYELOPATHY OR RADICULOPATHY, LUMBOSACRAL REGION - M47.817 TREATMENT SPONDYLOSIS WITHOUT MYELOPATHY OR RADICULOPATHY, LUMBAR REGION [facility] FACET BLOCK (PAIN)[id number] MEDICATION: VALIUM TAB 10MG ORALLY (DIAZEPAM)NIA WALLACE 04/04/2020 9:56:24 AM > LOT # [id number] EXP 11/03 [facility] 04/04/2020 10:05:44 AM > VERIFIED NIA WALLACE 04/04/2020 10:08:10 AM > ADMINISTERED MEDICATION: OXYCODONE HCL TAB 10MG ORALLYDEEMERITANIA 04/04/2020 9:57:48 AM > LOT #[id number], EXP. 04/2021 [facility] 04/04/2020 10:06:09 AM > VERIFIED MADISON[place] 04/04/2020 10:08:30 AM > ADMINISTERED COMPLETION OF PROCEDURAL VISIT WHEN MEETS CRITERIA PROCEDURES PAIN NURSING RECORD PROCEDURE IN ROOM 1023, PHYSICIAN IN ROOM 1056 LEFT ROOM AT 1102, RETURNED TO ROOM AT 1105, START 1109, FINISH 1115, PHYSICIAN OUT OF ROOM 1116, OUT OF ROOM 1120, ECG NORMAL SINUS AND SINUS ANTIONETTE, PATIENT SHIELDED YES, SAFETY STRAP YES, PREP CHLOROPREP BY Fox HARRIS RN, DRESSING TEGADERM BY DR. ALEXANDRE LOC: NIA WALLACE 04/04/2020 9:53:49 AM > , 1. ALERT, ORIENTED NIA WALLACE 04/04/2020 11:22:31 AM > , 1. ALERT, ORIENTED RESP: NIA WALLACE 04/04/2020 9:53:52 AM > , 1. REGULAR, NO DYSPNEA NIA WALLACE 04/04/2020 11:23:03 AM > , 1. REGULAR, NO DYSPNEA COLOR: MARNI WALLACEITA 04/04/2020 9:53:55 AM > , 1. PINK [place]ADISON[place]IA 04/04/2020 11:23:22 AM > , 1. PINK SKIN: [place] 04/04/2020 9:53:59 AM > , 1. WARM, DRY [place] 04/04/2020 11:23:41 AM > , 1. WARM, DRY POSITION: [place] 04/04/2020 9:54:03 AM > , 5. SITTING [place] 04/04/2020 10:25:49 AM > , 1. PRONE [place] 04/04/2020 11:23:57 AM > , 5. SITTING VITALS: [place] 04/04/2020 10:25:50 AM > 137/78,60,16, 99% [place] 04/04/2020 10:30:20 AM >142/73,59,16, 99% [facility] [place] 04/04/2020 10:45:43 AM > 123/71,56,16,96% [place] 04/04/2020 11:00:32 AM > 136/79,64,16,99% [place] 04/04/2020 11:15:16 AM > 141/92,61,16,98% [place] 04/04/2020 11:19:50 AM > 135/84,58,16,97% [place] 04/04/2020 11:25:59 AM > 152/7658,16,98% COMPLETION OF PROCEDURE APPOINTMENT: POST PAIN 3, DRESSING SITE DRY AND INTACT, IV N/A, GAIT STEADY, TEACHING COMPLETED, PATIENT ACKNOWLEDGES UNDERSTANDING YES, PATIENT DISCHARGED AT 1136 PN LUMBAR FACET BLOCK THERAPEUTIC PRE PROCEDURE DIAGNOSIS LUMBAR SPONDYLOSIS, LUMBOSACRAL SPONDYLOSIS POST PROCEDURE DIAGNOSIS LUMBAR SPONDYLOSIS, LUMBOSACRAL SPONDYLOSIS PROCEDURE BILATERAL L4-L5 AND BILATERAL L5-S1 LUMBAR FACET THERAPEUTIC BLOCK SURGEON DR. MAURICIO ALEXANDRE DISTRICT ENGINEER NONE ANESTHESIA LOCAL PRE PROCEDURE NOTE THE PATIENT HAS A HISTORY OF CHRONIC LOW BACK PAIN. I EVALUATED THE PATIENT AND REVIEWED THE CHART. I WENT OVER THE RISKS, ALTERNATIVES, AND BENEFITS ASSOCIATED WITH THIS PROCEDURE. THE PATIENT WOULD LIKE TO PROCEED AND GIVES CONSENT TO PERFORM THE PROCEDURE. THE PATIENT DENIES UNEXPLAINABLE WEIGHT LOSS, FEVER, CHILLS, OR NEW CHANGES IN URINARY OR BOWEL CONTROL. THE PATIENT IS COVID-19 NEGATIVE DESCRIPTION OF PROCEDURE THE PATIENT WAS BROUGHT TO THE PROCEDURE ROOM AND PLACED IN THE PRONE POSITION. THE LUMBOSACRAL AREA WAS CLEANED WITH CHLORAPREP SOLUTION AND DRAPED ASEPTICALLY. THE PROCEDURE WAS DONE UNDER STERILE CONDITIONS. A TIMEOUT WAS PERFORMED WHERE LATERALITY AND THE SITE OF THE PROCEDURE WERE CHECKED AND CONFIRMED WITH EVERYONE IN THE ROOM. UNDER FLUOROSCOPIC GUIDANCE, THE TARGET POINT WAS SELECTED AT THE RIGHT AND LEFT L4-L5 AND RIGHT AND LEFT L5-S1 FACET JOINTS. TARGET POINT WAS SELECTED AFTER LATERAL ROTATION AND TILT OF THE MAGNIFIER OF THE C-ARM. I CONFIRMED AGAIN WITH EVERYONE IN THE ROOM THE LATERALITY OF THE TARGET. LIDOCAINE 0.5% WAS USED TO NUMB THE SKIN AND THE SUBCUTANEOUS TISSUE BELOW IT. SPINAL NEEDLES, 22-GAUGE, WERE ADVANCED UNDER FLUOROSCOPIC GUIDANCE AND FOLLOWING PATIENT FEEDBACK UNTIL THE TARGETS WERE TOUCHED. THE POSITION OF THE NEEDLES WAS VERIFIED WITH AP AND LATERAL VIEWS. AFTER PROPER POSITION OF THE NEEDLES WAS ACHIEVED, ISOVUE-M DYE 30%, 0.1 ML, WAS INJECTED SHOWING ADEQUATE SPREAD OF THE DYE. KENALOG 20 MG WAS INJECTED AT EACH SITE. THEN, A SOLUTION OF 1.0 ML OF BUPIVACAINE 0.125% OF WAS USED TO FLUSH EACH SITE. THE MEDICATION WAS VERIFIED WITH THE NURSE. THERE WAS NO EVIDENCE OF BLOOD, PARESTHESIA OR CEREBROSPINAL FLUID DURING THE PROCEDURE. THE PATIENT WAS SENT TO THE RECOVERY ROOM. THE PATIENT WAS MOVING THE EXTREMITIES AND DOING WELL. THERE WERE NO COMPLICATIONS DURING THE PROCEDURE. ESTIMATED BLOOD LOSS WAS LESS THAN 5 ML. FLUOROSCOPY TIME WAS 36 SECONDS POST PROCEDURE NOTE THE PATIENT WILL BE SEEN IN A FOLLOW UP IN THE NEXT FEW WEEKS. I AM LOOKING FOR LONG LASTING RELIEF FOR THE PATIENT WITH THIS INTERVENTION. INSTRUCTIONS WERE GIVEN, QUESTIONS WERE ANSWERED, AND THE PATIENT EXPRESSED UNDERSTANDING AND AGREES WITH THE PLAN. I, NOHELIA MOORE, DOCUMENTED THE ABOVE INFORMATION ACTING A SCRIBE FOR DR. ALEXANDRE. I HAVE REVIEWED THE ABOVE DOCUMENT, WRITTEN BY NOHELIA MOORE, TRACING LATHE SET UP OPERATOR, AND I VERIFY THAT IT IS ACCURATE PROCEDURE CODES 39295 INJ PARAVERT F JNT L/S 1 LEV, MODIFIERS: 50 [id number] INJ PARAVERT F JNT L/S 2 LEV, MODIFIERS: 50 DISPOSITION & COMMUNICATION FOLLOW UP FOLLOW UP WITH CRIMPER OPERATOR (REASON: POST BILATERAL THERAPEUTIC LUMBAR FACET BLOCK L4-L5, L5-S1) ELECTRONICALLY SIGNED BY MAURICIO ALEXANDRE MD, MD ON 04/04/2020 AT 05:20 PM EST DISCLAIMER : THIS IS A VISIT SUMMARY EXTRACTED FROM THE [employer] CHART. IT IS NOT A COPY OF THE [employer] PROGRESS NOTE. MTDD
== END ==
LOC: M PAIN 09:30
PROVIDERS: ATTEND Anesthesiology
DX: M47.816 Spondylosis without myelopathy or radiculopathy, lumbar region (principal); M47.817 Spondylosis without myelopathy or radiculopathy, lumbosacral region; G47.30 Sleep apnea, unspecified; K21.9 Gastro-esophageal reflux disease without esophagitis; G47.00 Insomnia, unspecified; F17.210 Nicotine dependence, cigarettes, uncomplicated; Z79.899 Other long term (current) drug therapy
CPT/HCPCS: 64493; 64494; J3301; Q9967

== ENCOUNTER → 2020-04-20 | Outpatient (CLI) | payer OTHER ==
[~2020-04-20] MED LIST changes: -BUPIVACAINE HCL 0.25% 30ML VIAL As Ordered ONE; -ISOVUE-M 300 61% 15ML VIAL As Ordered ONE; -LIDOCAINE 1% SDV 30ML VIAL As Ordered ONE; -TRIAMCINOLONE ACETONIDE SUSP 40 MG/ML VIAL (J3301) As Ordered ONE; -diazePAM 5MG TABLET As Ordered ONE; -oxyCODONE 5MG TAB As Ordered ONE
--- NOTE | 2020-04-23 23:56 | ECWPNPC ---
PATIENT NAME: ROSSY ACUÑA : 1965 GENDER: MALE VISIT DATE: 04/20/2020 DISCHARGE DATE: 04/20/20 1130 VISIT LOCKED DATE TIME: PHYSICIAN: ALINE HICKMAN RESOURCE: ALINE HICKMAN REASON FOR APPOINTMENT 1. POST BILATERAL L4-5, L5-S1 THERAPEUTIC LUMBAR FACET BLOCK HISTORY OF PRESENT ILLNESS PAIN CENTER INTAKE QUESTIONS: DO YOU HAVE A HISTORY OF MRSA? :NO DO YOU TAKE A BLOOD THINNERS? :NO DO YOU HAVE ANY BLEEDING DISORDERS? :NO ANY NEW NUMBNESS OR WEAKNESS IN YOUR LEGS OR ARMS? :NO ANY PACEMAKER,DEFIBRILLATOR, OR DORSAL COLUMN STIMULATOR? :NO DO YOU HAVE ANY RASHES OR OPEN SORES? :NO ARE YOU ALLERGIC TO IV DYE? :NO ARE YOU DIABETIC? :NO ANY NEW PROBLEMS WITH YOUR MEDICATIONS? :NO HAVE YOU RECEIVED A VACCINE IN THE PAST 30 DAYS? :NO DO YOU PLAN TO RECEIVE A VACCINE IN THE NEXT 21 DAYS? :NO DO YOU NEED ANY PRESCRIPTION? :NO DO YOU TAKE ANY IMMUNOSUPPRESSIVE MEDICATIONS? :NO IS THERE A CHANCE YOU COULD BE ? :NO ARE YOU BREAST FEEDING? :NO GENERAL: HERE FOR POST PROCEDURE FOLLOW-UP. HAD BILATERAL L4-5, L5-S1 THERAPEUTIC LUMBAR FACET BLOCK ON 04/04/2020. REPORTS SIGNIFICANT IMPROVEMENT IN PAIN FOR 5 DAYS POSTPROCEDURE THEN PAIN RETURNED TO BASELINE. STATES PAIN IS ACROSS LOWER BACK RIGHT GREATER THAN LEFT. REVIEWED MRI OF THE LUMBAR SPINE. DISCUSSED RADIOFREQUENCY PROCESS. REPORTING DISABLING PAIN.-. FALL RISK SCREENING: SCREENING :NO FALLS REPORTED IN THE LAST YEAR PAIN SCREENING: PATIENT HAS A COMPLAINT OF ACUTE OR CHRONIC PAIN :YES LOCATION OF PAIN:LOW BACK, LEFT HIP, RIGHT HIP INTENSITY OF PAIN (SCALE OF 1 TO 10):4 WHAT DOES YOUR PAIN FEEL LIKE:CONTINOUS, BURNING, ACHING PAIN IS INCREASED BY:ACTIVITIES NURSING NOTE: -. CURRENT MEDICATIONS TAKING OMEPRAZOLE 40 MG CAPSULE DELAYED RELEASE 1 CAPSULE ORALLY ONCE A DAY TAKING LISINOPRIL 5 MG TABLET TAKE 3 TABLETS ORALLY DAILY, NOTES: 04/04 429 TAKING PERCOCET 7.5-325 MG TABLET 1 TABLET NEEDED ORALLY DAILY, NOTES: 04/04 429 TAKING EZETIMIBE 10 MG TABLET 1 TABLET ORALLY ONCE A DAY, NOTES: 04/03 2099 TAKING ESCITALOPRAM OXALATE 10 MG TABLET 1 TABLET ORALLY ONCE A DAY TAKING TRAZODONE HCL 50 MG TABLET 1 TABLET AT BEDTIME NEEDED ORALLY ONCE A DAY, NOTES: 04/03 2099 TAKING HYDROXYZINE PAMOATE 25 MG CAPSULE 1-3 CAPSULE NEEDED ORALLY EVERY 8 HRS TAKING VITAMIN D (ERGOCALCIFEROL) 1.25 MG (97417 UT) CAPSULE 1 CAPSULE ORALLY WEEKLY TAKING CYCLOBENZAPRINE HCL 5 MG TABLET 1 TABLET AT BEDTIME NEEDED ORALLY ONCE A DAY, NOTES: UNSURE OF DOSAGE NOT-TAKING METHOCARBAMOL 750 MG TABLET 1 TABLET ORALLY BID, NOTES: 04/03 2099 NOT-TAKING IBUPROFEN 400 MG TABLET 1 TABLET ORALLY THREE TIMES A DAY PRN MEDICATION LIST REVIEWED AND RECONCILED WITH THE PATIENT PAST MEDICAL HISTORY BARRETTS ESOPHAGUS NECK PAIN OSTEOARTHRITIS CRUSHED SPINAL CORD - NERVE CONDUCTION TEST SHOWED MISFIRING NERVES GENERALIZED MUSCLE WEAKNESS LOWER BACK PAIN ACID REFLUX INSOMNIA LICHEN PLANUS ALLERGIES N.K.D.A. SURGICAL HISTORY CERVICAL 5,6,7 FUSION DONE TO KEEP SYMPTOMS FROM PROGRESSING 09/11/15 PROCEDURES EGD AND COLONOSCOPIES FAMILY HISTORY FATHER: ALIVE 76 YRS MOTHER: ALIVE 76 YRS SIBLINGS: ALIVE SON(S): ALIVE 2 SON(S) - HEALTHY. FATHER: FIBROMYALGIA, [id number], OSTEOARTHRITISBOTHER-OSTEOARTHRITIS, MACULAR DEGENERATIONPATERNAL SIDE 6 UNCLES HAVE FROM DIFFERENT TYPES OF CANCER, COLON, PROSTATE. SOCIAL HISTORY GENERAL: TOBACCO USE ARE YOU A:CURRENT SMOKER ARE YOU INTERESTED IN QUITTING?THINKING ABOUT QUITTING COUNSELED THE PATIENT ON SMOKING CESSATION, EDUCATION [id number]/16/2020 HOW MANY CIGARETTES A DAY DO YOU SMOKE?11-20 HOW SOON AFTER YOU WAKE UP DO YOU SMOKE YOUR FIRST CIGARETTE?WITHIN 5 MIN PATIENT COUNSELED ON THE DANGERS OF TOBACCO USE AND URGED TO QUIT:04/20/2020 WE DISCUSSED CUTTING DOWN TO FEW POSSIBLE LATEX QUESTIONNAIRE LATEX ALLERGY : HAVE YOU EVER DEVELOPED ANY TYPE OF REACTION AFTER HANDLING LATEX PRODUCTS SUCH RUBBER GLOVES, CONDOMS, DIAPHRAGMS, BALLOONS, SOCKS, OR UNDERWEAR?NO LATEX ALLERGY : HAVE YOU EVER DEVELOPED ANY TYPE OF REACTION DURING OR AFTER DENTAL APPOINTMENT, VAGINAL/RECTAL EXAMINATION, SURGICAL PROCEDURE, OR ANY OTHER EXPOSURE?NO DATE ASKED : 04/04/2020 LATEX RISK : HAVE YOU EVER HAD ANY DIFFICULTY BREATHING OR HIVES AFTER EATING OR HANDLING ANY FRUITS, OR VEGETABLES; SUCH KIWI, BANANAS, STONE FRUITS, OR CHESTNUTSNO LATEX RISK : DO YOU HAVE A PREVIOUS PERSONAL HISTORY OF MORE THAN NINE SURGERIES, SPINA BIFIDA, OR REPEATED CATHERIZATIONS? NO LATEX RISK : ARE YOU FREQUENTLY EXPOSED TO LATEX PRODUCTS IN YOUR OCCUPATION?YES ALCOHOL SCREENING DID YOU HAVE A DRINK CONTAINING ALCOHOL IN THE PAST YEAR?YES HOW OFTEN DID YOU HAVE SIX OR MORE DRINKS ON ONE OCCASION IN THE PAST YEAR?WEEKLY (3 POINTS) HOW MANY DRINKS DID YOU HAVE ON A TYPICAL DAY WHEN YOU WERE DRINKING IN THE PAST YEAR?5 OR 6 (2 POINTS) HOW OFTEN DID YOU HAVE A DRINK CONTAINING ALCOHOL IN THE PAST YEAR?TWO TO FOUR TIMES A MONTH (2 POINTS) POINTS7 INTERPRETATIONPOSITIVE RECREATIONAL DRUG USE DRUG USE?NO CAFFEINE CAFFEINE USE?YES HOW OFTEN AND HOW MUCH? 3 CUPS COFFEE IN THE AM ORTHODOX NO ORTHODOXY BELIEFS THAT WOULD IMPACT HEALTH CARE. LANGUAGE LANGUAGES SPOKEN:AMHARIC EDUCATION LEVEL OF EDUCATION:HIGH SCHOOL LEARNING BARRIERS / SPECIAL NEEDS BARRIERS TO LEARNING?NO HEARING IMPAIRED?NO VISION IMPAIRED?NO COGNITIVELY IMPAIRED?NO READINESS TO LEARN?YES LEARNING PREFERENCES?NO LEARNING CAPABILITIES PRESENT?YES EMOTIONAL BARRIERS?NO SPECIAL DEVICES?NO SPINNER CONCRETE PIPE NEEDED?NO DOMESTIC VIOLENCE DO YOU FEEL SAFE IN YOUR ENVIRONMENT?YES DIET: REGULAR. EXERCISE: DAILY, WALKS. PRECIPITATING FACTORS STANDING, STOOPING, SITTING, BENDING, LIFTING, TURNING HEAD ALLEVIATING FACTORS SLEEPING IMPACT ON FUNCTION BARELY CAN GET OUT OF BED, THEN IT LESSONS, THEN WORSE BY THE END OF THE DAY - PFS REFERRAL NEEDED?NO CLERGY REFERRAL NEEDED?NO PUBLIC HEALTH REFERRAL NEEDED?NO HAS THE PATIENT BEEN EDUCATED REGARDING HIS/HER PLAN OF CARE?YES HAS THE PATIENT BEEN EDUCATED REGARDING PAIN, THE RISK FOR PAIN, THE IMPORTANCE OF EFFECTIVE PAIN MANAGEMENT, AND THE PAIN ASSESSMENT PROCESS?YES ADVANCE DIRECTIVE ADVANCE DIRECTIVE DISCUSSED WITH PATIENT:YES 04/04/20 PT. STATES HE DOES NOT HAVE ANY ADVANCE DIRECTIVES. HCP INFORMATION WAS GIVEN TO PATIENT AND ASSISTANCE WAS OFFERED IN COMPLETING FORM IF NEEDED. ALCOHOL USE: 3-4 DRINKS/WEEK. HOSPITALIZATION/MAJOR DIAGNOSTIC PROCEDURE SURGICAL RELATED REVIEW OF SYSTEMS CONSTITUTIONAL: ANY RECENT FEVER NO . CHILLS NO . WEIGHT CHANGE OF UNKNOWN REASONS NO . GASTROENTEROLOGY: NEW UNEXPLAINABLE CHANGES IN BOWEL CONTROL NO . CONSTIPATION NO . GENITOURINARY: ANY NEW CHANGE IN BLADDER CONTROL? NO . NEUROLOGY: NEW ONSET DIZZINESS OR NEUROLOGICAL CHANGES NOT MENTIONED NO . NEW NUMBNESS OR PAIN PATTERNS NOT MENTIONED AND PERTINENT TO TODAY'S VISIT NO . CARDIOLOGY: NEW CHEST PRESSURE NO . NEW CHEST PAIN NO . RESPIRATORY: UNEXPLAINABLE COUGH NO . NEW SHORTNESS OF BREATH NO . VITAL SIGNS WT 175.4 LBS, HT 69 IN, BMI 25.90 INDEX, BP 137/79 MM HG, HR 71 /MIN, RR 18 /MIN, TEMP 98.1 F, OXYGEN SAT % 98%, NA INITIALS SC 10:54. EXAMINATION GENERAL EXAMINATION: GENERALNO ACUTE DISTRESS, WELL NOURISHED AND HYDRATED. PSYCHAPPROPRIATE MOOD AND AFFECT . NECK:NO LYMPHADENOPATHY, SUPPLE. LUNGS: LUNG SOUNDS ARE CLEAR . HEART: HEART RATE REGULAR . MUSCULOSKELETAL:*, MUSCLE STRENGTH TESTING 5/5 BILATERAL LOWER EXTREMITIES., ,PALPATION: SPECIFIC POINT TENDERNESS OVER BILAT L4/5-L5/S1 LUMBR FACETS WITH FACET LOADING . NEUROLOGIC EXAM:NORMAL SENSATION TO LIGHT TOUCH LOWER EXTREMITIES. . DIAGNOSTIC TESTS REVIEWED MRI L/S SPINE 06/2019. DIAGNOSTIC:MRI L/S SPINE . ASSESSMENTS SPONDYLOSIS WITHOUT MYELOPATHY OR RADICULOPATHY, LUMBAR REGION - M47.816 (PRIMARY) OTHER CHRONIC PAIN - G89.29 TREATMENT SPONDYLOSIS WITHOUT MYELOPATHY OR RADICULOPATHY, LUMBAR REGION NOTES: BILATERAL LUMBAR FACET BLOCK DIAGNOSTIC #1 L4-5, L5-S1. CLINICAL NOTES: BILATERAL LUMBAR FACET DIAGNOSTIC BLOCK INFORMATION PROVIDED TO PATIENT. PREPROCEDURE INFORMATION GIVEN. PATIENT VERBALIZED UNDERSTANDING. TATIANNA GONZALEZ MA. OTHER CHRONIC PAIN PAIN PROCEDURE LOGDATE OF [id number]/20/21PROCEDURE:BILATERAL THERAPEUTIC LUMBAR FACET BLOCK L4-L5, L5-X4ESJGRF OF PRE SEDATEVALIUM 10MG, OXYCODONE 10MG PORESULT:MARKED REDUCTION IN PAIN FOR 5 DAYS POSTPROCEDURE THEN PAIN RETURNED TO BASELINE. PROCEDURE CODES FA211 ESTABILISHED PATIENT [facility] CHARGE DISPOSITION & COMMUNICATION FOLLOW UP POST PROCEDURE (REASON: BILATERAL LUMBAR FACET BLOCK DIAGNOSTIC #1 L4-5, L5-S1) ELECTRONICALLY SIGNED BY JOSE DOWNEY ON 04/23/2020 AT 03:58 PM EST DISCLAIMER : THIS IS A VISIT SUMMARY EXTRACTED FROM THE [facility] CHART. IT IS NOT A COPY OF THE [facility] PROGRESS NOTE. GABRIELA
== END ==
LOC: M PAIN 10:30
PROVIDERS: ATTEND Nurse Practitioner Family
DX: M47.816 Spondylosis without myelopathy or radiculopathy, lumbar region (principal); G89.29 Other chronic pain; K21.9 Gastro-esophageal reflux disease without esophagitis; G47.00 Insomnia, unspecified; F17.210 Nicotine dependence, cigarettes, uncomplicated; Z79.899 Other long term (current) drug therapy

== ENCOUNTER → 2020-05-04 | Outpatient (CLI) | payer OTHER | LOC: M LABSMTC 09:36 | PROVIDERS: ATTEND Anesthesiology | DX: Z20.822 Contact with and (suspected) exposure to COVID-19 (principal) ==

== ENCOUNTER → 2020-05-09 | Outpatient (CLI) | payer OTHER ==
[~2020-05-09] MED LIST changes: +BUPIVACAINE HCL 0.25% 30ML VIAL As Ordered ONE; +ISOVUE-M 300 61% 15ML VIAL As Ordered ONE; +LIDOCAINE 1% SDV 30ML VIAL As Ordered ONE
--- NOTE | 2020-05-09 11:23 | REP ---
INDICATION: BILATERAL DIAGNOSTIC LUMBAR FACET BLOCK L4-L5, L5-S1. COMPARISON: None. TECHNIQUE: Two C-arm views lower lumbar spine. FINDINGS: [place] are seen along the lower lumbar facet joints bilaterally. A small amount of contrast is injected. IMPRESSION: 39 seconds fluoroscopy time utilized. <Electronically signed by Bon Munoz > 05/09/20 0094
--- NOTE | 2020-05-11 01:26 | ECWPNPC ---
PATIENT NAME: ROSSY ACUÑA : 1965 GENDER: MALE VISIT DATE: 05/09/2020 DISCHARGE DATE: 05/09/20 1027 VISIT LOCKED DATE TIME: PHYSICIAN: MAURICIO ALEXANDRE MD RESOURCE: MAURICIO ALEXANDRE MD REASON FOR APPOINTMENT 1. BILATERAL DIAGNOSTIC LUMBAR FACET BLOCK L4-L5, L5-S1 #1 HISTORY OF PRESENT ILLNESS GENERAL: -. FALL RISK SCREENING: SCREENING :NO FALLS REPORTED IN THE LAST YEAR 05/09/20 PAIN SCREENING: PATIENT HAS A COMPLAINT OF ACUTE OR CHRONIC PAIN :YES LOCATION OF PAIN:LOW BACK RIGHT LOW BACK INTENSITY OF PAIN (SCALE OF 1 TO 10):4 8 WITH ACTIVITY WHAT DOES YOUR PAIN FEEL LIKE:CONTINOUS, SHARP, STABBING, TENDER, SORE DURATION:CONTINOUS, CONSTANT PAIN IS INCREASED BY:ACTIVITIES PAIN IS DECREASED BY:USE OF PAIN MEDICATIONS, OTHERS REST NURSING NOTE: -. PAIN CENTER INTAKE QUESTIONS: DO YOU HAVE A HISTORY OF MRSA? :NO DO YOU TAKE A BLOOD THINNERS? :NO DO YOU HAVE ANY BLEEDING DISORDERS? :NO ANY NEW NUMBNESS OR WEAKNESS IN YOUR LEGS OR ARMS? :NO ANY PACEMAKER,DEFIBRILLATOR, OR DORSAL COLUMN STIMULATOR? :NO DO YOU HAVE ANY RASHES OR OPEN SORES? :NO ARE YOU ALLERGIC TO IV DYE? :NO ARE YOU DIABETIC? :NO ANY NEW PROBLEMS WITH YOUR MEDICATIONS? :NO HAVE YOU RECEIVED A VACCINE IN THE PAST 30 DAYS? :NO DO YOU PLAN TO RECEIVE A VACCINE IN THE NEXT 21 DAYS? :NO DO YOU TAKE ANY IMMUNOSUPPRESSIVE MEDICATIONS? :NO ANY HISTORY OF SEIZURES? :NO ANY HISTORY OF CARDIAC ISSUES OR EVENTS? :NO DO YOU HAVE SLEEP APNEA? :YES DO YOU WEAR A CPAP?NO ANY RECENT HEAD INJURY? :NO DO YOU HAVE ANY NEW INFECTIONS? :NO IS THERE A CHANCE YOU COULD BE ? :NO ARE YOU BREAST FEEDING? :NO WHEN DID YOU LAST EAT? : -05/08/20 @1800 WHEN DID YOU LAST DRINK? : -05/09/20 @0530 WHAT DID YOU LAST DRINK? : -SIPS OF WATER NAME OF PERSON DRIVING YOU HOME? : -DAD JEREMY DO YOU HAVE ANY OTHER QUESTIONS OR CONCERNS? : - CURRENT MEDICATIONS TAKING OMEPRAZOLE 40 MG CAPSULE DELAYED RELEASE 1 CAPSULE ORALLY ONCE A DAY TAKING LISINOPRIL 5 MG TABLET TAKE 3 TABLETS ORALLY DAILY TAKING PERCOCET 7.5-325 MG TABLET 1 TABLET NEEDED ORALLY DAILY TAKING EZETIMIBE 10 MG TABLET 1 TABLET ORALLY ONCE A DAY TAKING ESCITALOPRAM OXALATE 10 MG TABLET 1 TABLET ORALLY ONCE A DAY TAKING TRAZODONE HCL 50 MG TABLET 1 TABLET AT BEDTIME NEEDED ORALLY ONCE A DAY TAKING HYDROXYZINE PAMOATE 25 MG CAPSULE 1-3 CAPSULE NEEDED ORALLY EVERY 8 HRS TAKING VITAMIN D (ERGOCALCIFEROL) 1.25 MG (43941 UT) CAPSULE 1 CAPSULE ORALLY WEEKLY TAKING CYCLOBENZAPRINE HCL 5 MG TABLET 1 TABLET AT BEDTIME NEEDED ORALLY ONCE A DAY NOT-TAKING METHOCARBAMOL 750 MG TABLET 1 TABLET ORALLY BID, NOTES: 04/03 2099 NOT-TAKING IBUPROFEN 400 MG TABLET 1 TABLET ORALLY THREE TIMES A DAY PRN MEDICATION LIST REVIEWED AND RECONCILED WITH THE PATIENT PAST MEDICAL HISTORY BARRETTS ESOPHAGUS NECK PAIN OSTEOARTHRITIS CRUSHED SPINAL CORD - NERVE CONDUCTION TEST SHOWED MISFIRING NERVES GENERALIZED MUSCLE WEAKNESS LOWER BACK PAIN ACID REFLUX INSOMNIA LICHEN PLANUS ALLERGIES N.K.D.A. SURGICAL HISTORY CERVICAL 5,6,7 FUSION DONE TO KEEP SYMPTOMS FROM PROGRESSING 09/11/15 PROCEDURES EGD AND COLONOSCOPIES FAMILY HISTORY FATHER: ALIVE 76 YRS MOTHER: ALIVE 76 YRS SIBLINGS: ALIVE SON(S): ALIVE 2 SON(S) - HEALTHY. FATHER: FIBROMYALGIA, [id number], OSTEOARTHRITISBOTHER-OSTEOARTHRITIS, MACULAR DEGENERATIONPATERNAL SIDE 6 UNCLES HAVE FROM DIFFERENT TYPES OF CANCER, COLON, PROSTATE. SOCIAL HISTORY GENERAL: TOBACCO USE ARE YOU A:CURRENT SMOKER ARE YOU INTERESTED IN QUITTING?THINKING ABOUT QUITTING COUNSELED THE PATIENT ON SMOKING CESSATION, EDUCATION [id number]/16/2020 HOW MANY CIGARETTES A DAY DO YOU SMOKE?5 OR LESS HOW SOON AFTER YOU WAKE UP DO YOU SMOKE YOUR FIRST CIGARETTE?WITHIN 5 MIN PATIENT COUNSELED ON THE DANGERS OF TOBACCO USE AND URGED TO QUIT:04/20/2020 WE DISCUSSED CUTTING DOWN TO FEW POSSIBLE LATEX QUESTIONNAIRE LATEX ALLERGY : HAVE YOU EVER DEVELOPED ANY TYPE OF REACTION AFTER HANDLING LATEX PRODUCTS SUCH RUBBER GLOVES, CONDOMS, DIAPHRAGMS, BALLOONS, SOCKS, OR UNDERWEAR?NO LATEX ALLERGY : HAVE YOU EVER DEVELOPED ANY TYPE OF REACTION DURING OR AFTER DENTAL APPOINTMENT, VAGINAL/RECTAL EXAMINATION, SURGICAL PROCEDURE, OR ANY OTHER EXPOSURE?NO LATEX RISK : HAVE YOU EVER HAD ANY DIFFICULTY BREATHING OR HIVES AFTER EATING OR HANDLING ANY FRUITS, OR VEGETABLES; SUCH KIWI, BANANAS, STONE FRUITS, OR CHESTNUTSNO LATEX RISK : DO YOU HAVE A PREVIOUS PERSONAL HISTORY OF MORE THAN NINE SURGERIES, SPINA BIFIDA, OR REPEATED CATHERIZATIONS? NO LATEX RISK : ARE YOU FREQUENTLY EXPOSED TO LATEX PRODUCTS IN YOUR OCCUPATION?YES DATE ASKED : 05/09/2020 ALCOHOL SCREENING DID YOU HAVE A DRINK CONTAINING ALCOHOL IN THE PAST YEAR?YES HOW OFTEN DID YOU HAVE SIX OR MORE DRINKS ON ONE OCCASION IN THE PAST YEAR?WEEKLY (3 POINTS) HOW MANY DRINKS DID YOU HAVE ON A TYPICAL DAY WHEN YOU WERE DRINKING IN THE PAST YEAR?5 OR 6 (2 POINTS) HOW OFTEN DID YOU HAVE A DRINK CONTAINING ALCOHOL IN THE PAST YEAR?TWO TO FOUR TIMES A MONTH (2 POINTS) POINTS7 INTERPRETATIONPOSITIVE RECREATIONAL DRUG USE DRUG USE?NO CAFFEINE CAFFEINE USE?YES HOW OFTEN AND HOW MUCH? 3 CUPS COFFEE IN THE AM BAPTISM NO CHRISTIANITY BELIEFS THAT WOULD IMPACT HEALTH CARE. LANGUAGE LANGUAGES SPOKEN:KOREAN EDUCATION LEVEL OF EDUCATION:HIGH SCHOOL LEARNING BARRIERS / SPECIAL NEEDS CHANGE FROM LAST VISIT?NO BARRIERS TO LEARNING?NO HEARING IMPAIRED?NO VISION IMPAIRED?NO COGNITIVELY IMPAIRED?NO READINESS TO LEARN?YES LEARNING PREFERENCES?NO LEARNING CAPABILITIES PRESENT?YES EMOTIONAL BARRIERS?NO SPECIAL DEVICES?NO REGULATORY AFFAIRS DIRECTOR NEEDED?NO DOMESTIC VIOLENCE DO YOU FEEL SAFE IN YOUR ENVIRONMENT?YES DIET: REGULAR. EXERCISE: DAILY, WALKS. PRECIPITATING FACTORS STANDING, STOOPING, SITTING, BENDING, LIFTING, TURNING HEAD ALLEVIATING FACTORS SLEEPING IMPACT ON FUNCTION BARELY CAN GET OUT OF BED, THEN IT LESSONS, THEN WORSE BY THE END OF THE DAY - PFS REFERRAL NEEDED?NO CLERGY REFERRAL NEEDED?NO PUBLIC HEALTH REFERRAL NEEDED?NO HAS THE PATIENT BEEN EDUCATED REGARDING HIS/HER PLAN OF CARE?YES HAS THE PATIENT BEEN EDUCATED REGARDING PAIN, THE RISK FOR PAIN, THE IMPORTANCE OF EFFECTIVE PAIN MANAGEMENT, AND THE PAIN ASSESSMENT PROCESS?YES ADVANCE DIRECTIVE ADVANCE DIRECTIVE DISCUSSED WITH PATIENT:YES 04/04/20 PT. STATES HE DOES NOT HAVE ANY ADVANCE DIRECTIVES. HCP INFORMATION WAS GIVEN TO PATIENT AND ASSISTANCE WAS OFFERED IN COMPLETING FORM IF NEEDED. ALCOHOL USE: 3-4 DRINKS/WEEK. HOSPITALIZATION/MAJOR DIAGNOSTIC PROCEDURE SURGICAL RELATED VITAL SIGNS WT 170.2 LBS, HT 69 IN, BMI 25.13 INDEX, BP 133/66 MM HG, HR 82 /MIN, RR 18 /MIN, TEMP 97.4 F, OXYGEN SAT % 99%, NA INITIALS SC 08:43. EXAMINATION GENERAL EXAMINATION: THE PATIENT IS ALERT, ORIENTED TIMES THREE AND COOPERATIVE. LUNGS ARE CLEAR TO AUSCULTATION. HEART SHOWS REGULAR RHYTHM, NO MURMURS AND NO GALLOPS. ASSESSMENTS SPONDYLOSIS WITHOUT MYELOPATHY OR RADICULOPATHY, LUMBAR REGION - M47.816 (PRIMARY) SPONDYLOSIS WITHOUT MYELOPATHY OR RADICULOPATHY, LUMBOSACRAL REGION - M47.817 TREATMENT SPONDYLOSIS WITHOUT MYELOPATHY OR RADICULOPATHY, LUMBAR REGION [facility] FACET BLOCK (PAIN)[id number] COMPLETION OF PROCEDURAL VISIT WHEN [facility] 10:33:03 AM > CRITERIA MET OTHERS NOTES: PAT COMPLETED 05/08/20 M GREGORY SPRINGER. PROCEDURES PAIN NURSING RECORD PROCEDURE IN ROOM 0942, PHYSICIAN IN ROOM 0956, START 1000, FINISH 1000, PHYSICIAN OUT OF ROOM 1001, OUT OF ROOM 1005, ECG NORMAL SINUS, PATIENT SHIELDED YES, SAFETY STRAP YES, PREP CHLOROPREP BY MOJGAN SPRINGER, DRESSING TEGADERM BY DR ALEXANDRE LOC: 1. ALERT, ORIENTED [facility] 05/09/2020 9:53:54 AM > RESP: 1. REGULAR, NO [facility]A [facility] 05/09/2020 9:54:04 AM > COLOR: 1. PINK [facility] 05/09/2020 9:54:08 AM > SKIN: 1. WARM, DRY [facility] 05/09/2020 9:54:14 AM > POSITION: 1. PRONE [facility] 05/09/2020 9:54:21 AM > VITALS: [facility] 05/09/2020 9:54:29 AM > HR77, 100%, 140/88, R16 [facility] 05/09/2020 10:08:50 AM > HR76, 100%, 149/94, R16 EXIT VITALS 121/68, HR 75, 100%, R 16 NOTES Hao PERERA RN COMPLETION OF PROCEDURE APPOINTMENT: POST PAIN 1 STATES PAIN IS ONLY FROM NEEDLE ACCESS POINTS, DRESSING SITE DRY AND INTACT, IV N/A, GAIT STEADY, TEACHING COMPLETED, PATIENT ACKNOWLEDGES UNDERSTANDING YES, PROCEDURE APPOINTMENT COMPLETED AT 1025 PN LUMBAR FACET BLOCK DIAGNOSTIC PRE PROCEDURE DIAGNOSIS LUMBAR SPONDYLOSIS, LUMBOSACRAL SPONDYLOSIS POST PROCEDURE DIAGNOSIS LUMBAR SPONDYLOSIS, LUMBOSACRAL SPONDYLOSIS PROCEDURE BILATERAL L4-L5 AND BILATERAL L5-S1 FACET BLOCK DIAGNOSTIC NUMBER [address] MAURICIO ALEXANDRE SSIS DEVELOPER NONE ANESTHESIA LOCAL PRE PROCEDURE NOTE THE PATIENT WITH HISTORY OF CHRONIC LOW BACK PAIN. I EVALUATED THE PATIENT AND REVIEWED THE CHART. I WENT OVER THE RISKS, ALTERNATIVES, AND BENEFITS ASSOCIATED WITH THIS PROCEDURE. THE PATIENT WOULD LIKE TO PROCEED AND GAVE CONSENT TO PERFORM THE PROCEDURE. AGREED WITH THE PATIENT, WE ARE DOING THIS PROCEDURE TO DETERMINE IF THE PATIENT IS A CANDIDATE FOR A RADIOFREQUENCY ABLATION OF THE FACETS JOINTS. THE PATIENT DENIES UNEXPLAINABLE WEIGHT LOSS, FEVER, CHILLS, OR NEW CHANGES IN URINARY OR BOWEL CONTROL. THE PATIENT IS COVID-19 NEGATIVE DESCRIPTION OF PROCEDURE THE PATIENT WAS BROUGHT TO THE PROCEDURE ROOM AND PLACED IN THE PRONE POSITION. THE LUMBOSACRAL AREA WAS CLEANED WITH CHLORAPREP SOLUTION AND DRAPED ASEPTICALLY. THE PROCEDURE WAS DONE UNDER STERILE CONDITIONS. A TIMEOUT WAS PERFORMED WHERE THE CONSENTED SITE WAS VERIFIED WITH EVERYONE IN THE ROOM. UNDER FLUOROSCOPIC GUIDANCE, TARGETS WERE SELECTED AT THE INTERSECTION OF THE RIGHT AND LEFT TRANSVERSE PROCESS OF L4, L5 AND ALA OF S1 WITH ITS RESPECTIVE SUPERIOR ARTICULAR PROCESS WITH A TARGET OF THE MEDIAN BRANCHES OF L3, L4 AND THE DORSAL RAMI OF L5. I CONFIRMED AGAIN THE SITE OF TARGET. LIDOCAINE WAS USED TO NUMB THE SKIN AND THE SUBCUTANEOUS TISSUE BELOW IT. SPINAL NEEDLE, 22-GAUGE, WAS ADVANCED UNDER FLUOROSCOPIC GUIDANCE AND FOLLOWING PATIENT FEEDBACK UNTIL THE TARGETS WERE REACHED. POSITION OF THE NEEDLES WAS VERIFIED WITH AP AND LATERAL VIEWS. AFTER PROPER POSITION OF THE NEEDLES WAS ACHIEVED, ISOVUE-M DYE 30%, 0.1 ML, WAS INJECTED AT EACH SITE SHOWING ADEQUATE SPREAD OF THE DYE. THEN, A SOLUTION OF 0.4 ML OF BUPIVACAINE 0.25% WAS INJECTED AT EACH SITE. THE MEDICATIONS WERE VERIFIED WITH THE NURSE. THERE WAS NO EVIDENCE OF BLOOD, PARESTHESIA OR CEREBROSPINAL FLUID DURING THE PROCEDURE. THE PATIENT WAS SENT TO THE RECOVERY ROOM. THE PATIENT WAS MOVING THE EXTREMITIES AND DOING WELL. THERE WERE NO COMPLICATIONS DURING THE PROCEDURE. ESTIMATED BLOOD LOSS WAS LESS THAN 5 ML. FLUOROSCOPY TIME WAS 39 SECONDS POST PROCEDURE NOTE THE PATIENT WILL DOCUMENT THE PAIN LEVEL AND RESPONSE TO THIS PROCEDURE PER PAIN DIARY. THE PATIENT WILL BE SEEN IN A FOLLOW UP IN THE NEXT FEW WEEKS. FURTHER DETERMINATION FOR THE PATIENT'S CASE WILL BE DONE AT THE NEXT VISIT. INSTRUCTIONS WERE GIVEN, QUESTIONS WERE ANSWERED, AND THE PATIENT EXPRESSED UNDERSTANDING AND AGREED WITH THE PLAN. INOHELIA, DOCUMENTED THE ABOVE INFORMATION ACTING A SCRIBE FOR DR. ALEXANDRE. I HAVE REVIEWED THE ABOVE DOCUMENT, WRITTEN BY NOHELIA MOORE, KILN DOOR BUILDER, AND I VERIFY THAT IT IS ACCURATE PROCEDURE CODES 82284 INJ PARAVERT F JNT L/S 1 LEV, MODIFIERS: 50 [id number] INJ PARAVERT F JNT L/S 2 LEV, MODIFIERS: 50 DISPOSITION & COMMUNICATION FOLLOW UP FOLLOW UP WITH TEACHER PRESCHOOL (REASON: POST BILATERAL DIAGNOSTIC LUMBAR FACET BLOCK L4-L5, L5-S1 NUMBER 1) ELECTRONICALLY SIGNED BY MAURICIO ALEXANDRE MD, MD ON 05/10/2020 AT 09:33 AM EST DISCLAIMER : THIS IS A VISIT SUMMARY EXTRACTED FROM THE [employer] CHART. IT IS NOT A COPY OF THE [employer] PROGRESS NOTE. GABRIELA
== END ==
LOC: M PAIN 08:30
PROVIDERS: ATTEND Anesthesiology
DX: M47.816 Spondylosis without myelopathy or radiculopathy, lumbar region (principal); M47.817 Spondylosis without myelopathy or radiculopathy, lumbosacral region; G47.30 Sleep apnea, unspecified; K21.9 Gastro-esophageal reflux disease without esophagitis; G47.00 Insomnia, unspecified; F17.210 Nicotine dependence, cigarettes, uncomplicated; Z79.899 Other long term (current) drug therapy
CPT/HCPCS: 64493; 64494; Q9967

== ENCOUNTER → 2020-05-23 | Outpatient (CLI) | payer OTHER ==
[~2020-05-23] MED LIST changes: -BUPIVACAINE HCL 0.25% 30ML VIAL As Ordered ONE; -ISOVUE-M 300 61% 15ML VIAL As Ordered ONE; -LIDOCAINE 1% SDV 30ML VIAL As Ordered ONE
--- NOTE | 2020-05-29 03:21 | ECWPNPC ---
PATIENT NAME: ROSSY ACUÑA : 1965 GENDER: MALE VISIT DATE: 05/23/2020 DISCHARGE DATE: 05/23/20 1014 VISIT LOCKED DATE TIME: PHYSICIAN: ALINE HICKAMN RESOURCE: ALINE HICKMAN REASON FOR APPOINTMENT 1. POST BILATERAL DIAGNOSTIC LUMBAR FACET BLOCK L4-L5, L5-S1 #1 HISTORY OF PRESENT ILLNESS GENERAL: HERE FOR POST PROCEDURE FOLLOW-UP. HAD BILATERAL L4-5, L5-S1 DIAGNOSTIC LUMBAR FACET BLOCK #1 ON 05/09/2020. REPORTING MARKED REDUCTION IN PAIN FOR APPROXIMATELY 3 DAYS POSTPROCEDURE THEN PAIN ABRUPTLY RETURNED TO BASELINE. CHIEF AREA OF COMPLAINT IS LEFT LOW BACK. DISCUSSED DIAGNOSTIC BLOCK #2 AND RADIOFREQUENCY. -. FALL RISK SCREENING: SCREENING : NO FALLS REPORTED IN THE LAST YEAR. PAIN SCREENING: PATIENT HAS A COMPLAINT OF ACUTE OR CHRONIC PAIN :YES LOCATION OF PAIN:LOW BACK NOW THE LEFT SIDE BOTHERING HIM INTENSITY OF PAIN (SCALE OF 1 TO 10):1 WHAT DOES YOUR PAIN FEEL LIKE:SHARP, SORE DURATION:CONTINOUS, CONSTANT, ALL DAY PAIN IS INCREASED BY:ACTIVITIES PAIN IS DECREASED BY:USE OF PAIN MEDICATIONS, OTHERS RELAXING NURSING NOTE: -. PAIN CENTER INTAKE QUESTIONS: DO YOU HAVE A HISTORY OF MRSA? :NO DO YOU TAKE A BLOOD THINNERS? :NO DO YOU HAVE ANY BLEEDING DISORDERS? :NO ANY NEW NUMBNESS OR WEAKNESS IN YOUR LEGS OR ARMS? :NO ANY PACEMAKER,DEFIBRILLATOR, OR DORSAL COLUMN STIMULATOR? :NO DO YOU HAVE ANY RASHES OR OPEN SORES? :NO ARE YOU ALLERGIC TO IV DYE? :NO ARE YOU DIABETIC? :NO ANY NEW PROBLEMS WITH YOUR MEDICATIONS? :NO HAVE YOU RECEIVED A VACCINE IN THE PAST 30 DAYS? :NO DO YOU PLAN TO RECEIVE A VACCINE IN THE NEXT 21 DAYS? :NO DO YOU NEED ANY PRESCRIPTION? :NO DO YOU TAKE ANY IMMUNOSUPPRESSIVE MEDICATIONS? :NO IS THERE A CHANCE YOU COULD BE ? :NO ARE YOU BREAST FEEDING? :NO CURRENT MEDICATIONS TAKING OMEPRAZOLE 40 MG CAPSULE DELAYED RELEASE 1 CAPSULE ORALLY ONCE A DAY TAKING LISINOPRIL 5 MG TABLET TAKE 3 TABLETS ORALLY DAILY TAKING PERCOCET 7.5-325 MG TABLET 1 TABLET NEEDED ORALLY DAILY TAKING EZETIMIBE 10 MG TABLET 1 TABLET ORALLY ONCE A DAY TAKING ESCITALOPRAM OXALATE 10 MG TABLET 1 TABLET ORALLY ONCE A DAY TAKING TRAZODONE HCL 50 MG TABLET 1 TABLET AT BEDTIME NEEDED ORALLY ONCE A DAY TAKING HYDROXYZINE PAMOATE 25 MG CAPSULE 1-3 CAPSULE NEEDED ORALLY EVERY 8 HRS TAKING VITAMIN D (ERGOCALCIFEROL) 1.25 MG (61087 UT) CAPSULE 1 CAPSULE ORALLY WEEKLY TAKING CYCLOBENZAPRINE HCL 5 MG TABLET 1 TABLET AT BEDTIME NEEDED ORALLY ONCE A DAY TAKING D3 VITAMIN 2000 UNITS 1 TABLET ORALLY DAILY NOT-TAKING METHOCARBAMOL 750 MG TABLET 1 TABLET ORALLY BID, NOTES: 04/03 2099 NOT-TAKING IBUPROFEN 400 MG TABLET 1 TABLET ORALLY THREE TIMES A DAY PRN MEDICATION LIST REVIEWED AND RECONCILED WITH THE PATIENT PAST MEDICAL HISTORY BARRETTS ESOPHAGUS NECK PAIN OSTEOARTHRITIS CRUSHED SPINAL CORD - NERVE CONDUCTION TEST SHOWED MISFIRING NERVES GENERALIZED MUSCLE WEAKNESS LOWER BACK PAIN ACID REFLUX INSOMNIA LICHEN PLANUS ALLERGIES N.K.D.A. SOCIAL HISTORY GENERAL: TOBACCO USE ARE YOU A:CURRENT SMOKER HOW SOON AFTER YOU WAKE UP DO YOU SMOKE YOUR FIRST CIGARETTE?WITHIN 5 MIN HOW MANY CIGARETTES A DAY DO YOU SMOKE?5 OR LESS ARE YOU INTERESTED IN QUITTING?THINKING ABOUT QUITTING PATIENT COUNSELED ON THE DANGERS OF TOBACCO USE AND URGED TO QUIT:04/20/2020 WE DISCUSSED CUTTING DOWN TO FEW POSSIBLE COUNSELED THE PATIENT ON SMOKING CESSATION, EDUCATION [id number]/16/2020 LATEX QUESTIONNAIRE LATEX ALLERGY : HAVE YOU EVER DEVELOPED ANY TYPE OF REACTION AFTER HANDLING LATEX PRODUCTS SUCH RUBBER GLOVES, CONDOMS, DIAPHRAGMS, BALLOONS, SOCKS, OR UNDERWEAR?NO LATEX ALLERGY : HAVE YOU EVER DEVELOPED ANY TYPE OF REACTION DURING OR AFTER DENTAL APPOINTMENT, VAGINAL/RECTAL EXAMINATION, SURGICAL PROCEDURE, OR ANY OTHER EXPOSURE?NO LATEX RISK : HAVE YOU EVER HAD ANY DIFFICULTY BREATHING OR HIVES AFTER EATING OR HANDLING ANY FRUITS, OR VEGETABLES; SUCH KIWI, BANANAS, STONE FRUITS, OR CHESTNUTSNO LATEX RISK : DO YOU HAVE A PREVIOUS PERSONAL HISTORY OF MORE THAN NINE SURGERIES, SPINA BIFIDA, OR REPEATED CATHERIZATIONS? NO LATEX RISK : ARE YOU FREQUENTLY EXPOSED TO LATEX PRODUCTS IN YOUR OCCUPATION?YES DATE ASKED : 05/23/2020 ALCOHOL USE: YES. ALCOHOL SCREENING DID YOU HAVE A DRINK CONTAINING ALCOHOL IN THE PAST YEAR?YES HOW OFTEN DID YOU HAVE SIX OR MORE DRINKS ON ONE OCCASION IN THE PAST YEAR?WEEKLY (3 POINTS) HOW MANY DRINKS DID YOU HAVE ON A TYPICAL DAY WHEN YOU WERE DRINKING IN THE PAST YEAR?5 OR 6 (2 POINTS) HOW OFTEN DID YOU HAVE A DRINK CONTAINING ALCOHOL IN THE PAST YEAR?TWO TO FOUR TIMES A MONTH (2 POINTS) POINTS7 INTERPRETATIONPOSITIVE RECREATIONAL DRUG USE DRUG USE?NO CAFFEINE CAFFEINE USE?YES HOW OFTEN AND HOW MUCH? 3 CUPS COFFEE IN THE AM ANGLICAN NO RESTORATIONISM BELIEFS THAT WOULD IMPACT HEALTH CARE. LANGUAGE LANGUAGES SPOKEN:[place] EDUCATION LEVEL OF EDUCATION:HIGH SCHOOL LEARNING BARRIERS / SPECIAL NEEDS CHANGE FROM LAST VISIT?NO BARRIERS TO LEARNING?NO HEARING IMPAIRED?NO VISION IMPAIRED?NO COGNITIVELY IMPAIRED?NO READINESS TO LEARN?YES LEARNING PREFERENCES?NO LEARNING CAPABILITIES PRESENT?YES EMOTIONAL BARRIERS?NO SPECIAL DEVICES?NO CARRIER BLOWER NEEDED?NO DOMESTIC VIOLENCE DO YOU FEEL SAFE IN YOUR ENVIRONMENT?YES DIET: REGULAR. EXERCISE: DAILY, WALKS. PRECIPITATING FACTORS STANDING, STOOPING, SITTING, BENDING, LIFTING, TURNING HEAD ALLEVIATING FACTORS SLEEPING IMPACT ON FUNCTION BARELY CAN GET OUT OF BED, THEN IT LESSONS, THEN WORSE BY THE END OF THE DAY - PFS REFERRAL NEEDED?NO CLERGY REFERRAL NEEDED?NO PUBLIC HEALTH REFERRAL NEEDED?NO HAS THE PATIENT BEEN EDUCATED REGARDING HIS/HER PLAN OF CARE?YES HAS THE PATIENT BEEN EDUCATED REGARDING PAIN, THE RISK FOR PAIN, THE IMPORTANCE OF EFFECTIVE PAIN MANAGEMENT, AND THE PAIN ASSESSMENT PROCESS?YES ADVANCE DIRECTIVE ADVANCE DIRECTIVE DISCUSSED WITH PATIENT:YES 04/04/20 PT. STATES HE DOES NOT HAVE ANY ADVANCE DIRECTIVES. HCP INFORMATION WAS GIVEN TO PATIENT AND ASSISTANCE WAS OFFERED IN COMPLETING FORM IF NEEDED. ALCOHOL USE: 3-4 DRINKS/WEEK. REVIEW OF SYSTEMS CONSTITUTIONAL: ANY RECENT FEVER NO . CHILLS NO . WEIGHT CHANGE OF UNKNOWN REASONS NO . GASTROENTEROLOGY: NEW UNEXPLAINABLE CHANGES IN BOWEL CONTROL NO . CONSTIPATION NO . GENITOURINARY: ANY NEW CHANGE IN BLADDER CONTROL? NO . NEUROLOGY: NEW ONSET DIZZINESS OR NEUROLOGICAL CHANGES NOT MENTIONED NO . NEW NUMBNESS OR PAIN PATTERNS NOT MENTIONED AND PERTINENT TO TODAY'S VISIT NO . CARDIOLOGY: NEW CHEST PRESSURE NO . PATIENT DENIES NO . RESPIRATORY: UNEXPLAINABLE COUGH NO . NEW SHORTNESS OF BREATH NO . VITAL SIGNS WT 174.6 LBS, HT 69 IN, BMI 25.78 INDEX, BP 149/75 MM HG, HR 85 /MIN, RR 18 /MIN, TEMP 96.0 F, OXYGEN SAT % 99%, SAFE IN ENV? (Y/N) YES, NA INITIALS AW 0940T.ELISE RODAS. EXAMINATION GENERAL EXAMINATION: GENERALNO ACUTE DISTRESS, WELL NOURISHED AND HYDRATED. PSYCHAPPROPRIATE MOOD AND AFFECT . NECK:NO LYMPHADENOPATHY, SUPPLE. LUNGS: LUNG SOUNDS ARE CLEAR . HEART: HEART RATE REGULAR . MUSCULOSKELETAL:*, MUSCLE STRENGTH TESTING 5/5 BILATERAL LOWER EXTREMITIES., ,PALPATION: SPECIFIC POINT TENDERNESS OVER BILAT L4/5-L5/S1 LUMBR FACETS WITH FACET LOADING . NEUROLOGIC EXAM:NORMAL SENSATION TO LIGHT TOUCH LOWER EXTREMITIES. . DIAGNOSTIC TESTS REVIEWED MRI L/S SPINE 06/2019. ASSESSMENTS OTHER CHRONIC PAIN - G89.29 (PRIMARY) LUMBOSACRAL SPONDYLOSIS WITHOUT MYELOPATHY - M47.817 TREATMENT OTHER CHRONIC PAIN PAIN PROCEDURE LOGDATE OF PROCEDURE1PROCEDURE:BILATERAL DIAGNOSTIC LUMBAR FACET BLOCK L4-L5,L5-S1 #1AMOUNT OF PRE SEDATE0/0RESULT:MARKED REDUCTION IN PAIN FOR APPROXIMATELY 3 DAYS THEN PAIN RETURNED TO BASELINE. NOTES: LEFT DIAGNOSTIC LUMBAR FACET BLOCK L4-5,L5-S1 PRINTED AND REVIEWED PRE PROCEDURE WITH PATIENT RIKY RODAS. PROCEDURE CODES [id number] ESTABILISHED PATIENT [facility] FACILITY CHARGE DISPOSITION & COMMUNICATION FOLLOW UP POST PROCEDURE (REASON: LEFT DIAGNOSTIC LUMBAR FACET BLOCK L4-5,L5-S1) ELECTRONICALLY SIGNED BY JOSE DOWNEY ON 05/28/2020 AT 03:51 PM EDT DISCLAIMER : THIS IS A VISIT SUMMARY EXTRACTED FROM THE [employer] CHART. IT IS NOT A COPY OF THE [employer] PROGRESS NOTE. GABRIELA
== END ==
LOC: M PAIN 09:15
PROVIDERS: ATTEND Nurse Practitioner Family
DX: M47.817 Spondylosis without myelopathy or radiculopathy, lumbosacral region (principal); G89.29 Other chronic pain; K21.9 Gastro-esophageal reflux disease without esophagitis; G47.00 Insomnia, unspecified; F17.210 Nicotine dependence, cigarettes, uncomplicated; Z79.899 Other long term (current) drug therapy

== ENCOUNTER → 2020-05-25 | Outpatient (CLI) | payer OTHER | LOC: M LABSMTC 09:36 | PROVIDERS: ATTEND Anesthesiology | DX: Z11.52 Encounter for screening for COVID-19 (principal) ==

== ENCOUNTER → 2020-05-30 | Outpatient (CLI) | payer OTHER ==
[~2020-05-30] MED LIST changes: +BUPIVACAINE HCL 0.25% 30ML VIAL As Ordered ONE; +ISOVUE-M 300 61% 15ML VIAL As Ordered ONE; +LIDOCAINE 1% SDV 30ML VIAL As Ordered ONE
--- NOTE | 2020-05-30 16:54 | REP ---
INDICATION: LEFT DIAGNOSTIC FACET BLOCK #2 L4-L5, L5-S1. COMPARISON: None. TECHNIQUE: One views. 36.8 seconds of fluoroscopy time is reported. FINDINGS: A single last image hold fluoroscopically obtained spot radiograph(s) of the lumbar spine document(s) needle position(s) and contrast injection associated with injection procedure. IMPRESSION: Procedural imaging. <Electronically signed by Deng Alonzo > 05/30/20 [id number]
--- NOTE | 2020-06-01 01:01 | ECWPNPC ---
PATIENT NAME: ROSSY ACUÑA : 1965 GENDER: MALE VISIT DATE: 05/30/2020 DISCHARGE DATE: 05/30/20 1314 VISIT LOCKED DATE TIME: PHYSICIAN: MAURICIO ALEXANDRE MD RESOURCE: MAURICIO ALEXANDRE MD REASON FOR APPOINTMENT 1. LEFT DIAGNOSTIC LUMBAR FACET BLOCK #2 L4-L5, L5-S1 HISTORY OF PRESENT ILLNESS GENERAL: -. FALL RISK SCREENING: SCREENING : NO FALLS REPORTED IN THE LAST YEAR. PAIN SCREENING: PATIENT HAS A COMPLAINT OF ACUTE OR CHRONIC PAIN :YES LOCATION OF PAIN:LOW BACK, LEFT HIP, LEG(S) LEFT HIP AND LEG TODAY, SOMETIMES RIGHT SIDE ALSO OR JUST RIGHT BY ITSELF INTENSITY OF PAIN (SCALE OF 1 TO 10):6 AVERAGE 5-9 WHAT DOES YOUR PAIN FEEL LIKE:ACHING, CONTINOUS, SHARP, TENDER, SORE DURATION:CONTINOUS, CONSTANT, AWAKENS FROM SLEEP PAIN IS INCREASED BY:ACTIVITIES, PROLONGED STANDING PROLONGED SITTING PAIN IS DECREASED BY:USE OF PAIN MEDICATIONS REST PAIN HAS INTERFERED WITH THE FOLLOWING: EVERYTHING NURSING NOTE: -. PAIN CENTER INTAKE QUESTIONS: DO YOU HAVE A HISTORY OF MRSA? :NO DO YOU TAKE A BLOOD THINNERS? :NO DO YOU HAVE ANY BLEEDING DISORDERS? :NO ANY NEW NUMBNESS OR WEAKNESS IN YOUR LEGS OR ARMS? :NO ANY PACEMAKER,DEFIBRILLATOR, OR DORSAL COLUMN STIMULATOR? :NO DO YOU HAVE ANY RASHES OR OPEN SORES? :NO ARE YOU ALLERGIC TO IV DYE? :NO ARE YOU DIABETIC? :NO ANY NEW PROBLEMS WITH YOUR MEDICATIONS? :NO HAVE YOU RECEIVED A VACCINE IN THE PAST 30 DAYS? :NO DO YOU PLAN TO RECEIVE A VACCINE IN THE NEXT 21 DAYS? :NO DO YOU TAKE ANY IMMUNOSUPPRESSIVE MEDICATIONS? :NO ANY HISTORY OF SEIZURES? :NO ANY HISTORY OF CARDIAC ISSUES OR EVENTS? :NO DO YOU HAVE ANY KIDNEY OR LIVER DISEASE? :NO DO YOU HAVE SLEEP APNEA? :YES DO YOU WEAR A CPAP?NO ANY RECENT HEAD INJURY? :NO DO YOU HAVE ANY NEW INFECTIONS? :NO IS THERE A CHANCE YOU COULD BE ? :NO ARE YOU BREAST FEEDING? :NO WHEN DID YOU LAST EAT? : 05/29 1800 WHEN DID YOU LAST DRINK? : 05/30 0500 WHAT DID YOU LAST DRINK? : WATER NAME OF PERSON DRIVING YOU HOME? : FIDE ACUÑA DO YOU HAVE ANY OTHER QUESTIONS OR CONCERNS? : NONE CURRENT MEDICATIONS TAKING OMEPRAZOLE 40 MG CAPSULE DELAYED RELEASE 1 CAPSULE ORALLY ONCE A DAY TAKING LISINOPRIL 5 MG TABLET TAKE 3 TABLETS ORALLY DAILY, NOTES: 05/30 0500 TAKING PERCOCET 7.5-325 MG TABLET 1 TABLET NEEDED ORALLY DAILY, NOTES: NONE FOR A COUPLE OF DAYS TAKING EZETIMIBE 10 MG TABLET 1 TABLET ORALLY ONCE A DAY, NOTES: 05/30 1999 TAKING ESCITALOPRAM OXALATE 10 MG TABLET 1 TABLET ORALLY ONCE A DAY TAKING TRAZODONE HCL 50 MG TABLET 1 TABLET AT BEDTIME NEEDED ORALLY ONCE A DAY TAKING HYDROXYZINE PAMOATE 25 MG CAPSULE 1-3 CAPSULE NEEDED ORALLY EVERY 8 HRS TAKING CYCLOBENZAPRINE HCL 5 MG TABLET 1 TABLET AT BEDTIME NEEDED ORALLY ONCE A DAY, NOTES: 05/30 1999 TAKING D3 VITAMIN 2000 UNITS 1 TABLET ORALLY DAILY NOT-TAKING VITAMIN D (ERGOCALCIFEROL) 1.25 MG (02355 UT) CAPSULE 1 CAPSULE ORALLY WEEKLY NOT-TAKING METHOCARBAMOL 750 MG TABLET 1 TABLET ORALLY BID, NOTES: 04/03 2099 NOT-TAKING IBUPROFEN 400 MG TABLET 1 TABLET ORALLY THREE TIMES A DAY PRN MEDICATION LIST REVIEWED AND RECONCILED WITH THE PATIENT PAST MEDICAL HISTORY BARRETTS ESOPHAGUS NECK PAIN OSTEOARTHRITIS CRUSHED SPINAL CORD - NERVE CONDUCTION TEST SHOWED MISFIRING NERVES GENERALIZED MUSCLE WEAKNESS LOWER BACK PAIN ACID REFLUX INSOMNIA LICHEN PLANUS ALLERGIES N.K.D.A. SOCIAL HISTORY GENERAL: TOBACCO USE ARE YOU A:CURRENT SMOKER ARE YOU INTERESTED IN QUITTING?THINKING ABOUT QUITTING COUNSELED THE PATIENT ON SMOKING CESSATION, EDUCATION [id number]/16/2020 HOW MANY CIGARETTES A DAY DO YOU SMOKE?5 OR LESS HOW SOON AFTER YOU WAKE UP DO YOU SMOKE YOUR FIRST CIGARETTE?WITHIN 5 MIN PATIENT COUNSELED ON THE DANGERS OF TOBACCO USE AND URGED TO QUIT:05/29/2020 WE DISCUSSED CUTTING DOWN TO FEW POSSIBLE LATEX QUESTIONNAIRE LATEX ALLERGY : HAVE YOU EVER DEVELOPED ANY TYPE OF REACTION AFTER HANDLING LATEX PRODUCTS SUCH RUBBER GLOVES, CONDOMS, DIAPHRAGMS, BALLOONS, SOCKS, OR UNDERWEAR?NO LATEX ALLERGY : HAVE YOU EVER DEVELOPED ANY TYPE OF REACTION DURING OR AFTER DENTAL APPOINTMENT, VAGINAL/RECTAL EXAMINATION, SURGICAL PROCEDURE, OR ANY OTHER EXPOSURE?NO LATEX RISK : HAVE YOU EVER HAD ANY DIFFICULTY BREATHING OR HIVES AFTER EATING OR HANDLING ANY FRUITS, OR VEGETABLES; SUCH KIWI, BANANAS, STONE FRUITS, OR CHESTNUTSNO LATEX RISK : DO YOU HAVE A PREVIOUS PERSONAL HISTORY OF MORE THAN NINE SURGERIES, SPINA BIFIDA, OR REPEATED CATHERIZATIONS? NO LATEX RISK : ARE YOU FREQUENTLY EXPOSED TO LATEX PRODUCTS IN YOUR OCCUPATION?YES DATE ASKED : 05/29/2020 ALCOHOL USE: YES. ALCOHOL SCREENING DID YOU HAVE A DRINK CONTAINING ALCOHOL IN THE PAST YEAR?YES HOW OFTEN DID YOU HAVE SIX OR MORE DRINKS ON ONE OCCASION IN THE PAST YEAR?WEEKLY (3 POINTS) HOW MANY DRINKS DID YOU HAVE ON A TYPICAL DAY WHEN YOU WERE DRINKING IN THE PAST YEAR?5 OR 6 (2 POINTS) HOW OFTEN DID YOU HAVE A DRINK CONTAINING ALCOHOL IN THE PAST YEAR?TWO TO FOUR TIMES A MONTH (2 POINTS) POINTS7 INTERPRETATIONPOSITIVE RECREATIONAL DRUG USE DRUG USE?NO CAFFEINE CAFFEINE USE?YES HOW OFTEN AND HOW MUCH? 3 CUPS COFFEE IN THE AM DRUZE NO BAHAI BELIEFS THAT WOULD IMPACT HEALTH CARE. LANGUAGE LANGUAGES SPOKEN:UKRAINIAN EDUCATION LEVEL OF EDUCATION:HIGH SCHOOL LEARNING BARRIERS / SPECIAL NEEDS CHANGE FROM LAST VISIT?NO BARRIERS TO LEARNING?NO HEARING IMPAIRED?NO VISION IMPAIRED?NO COGNITIVELY IMPAIRED?NO READINESS TO LEARN?YES LEARNING PREFERENCES?NO LEARNING CAPABILITIES PRESENT?YES EMOTIONAL BARRIERS?NO SPECIAL DEVICES?NO LOGISTICS ASSISTANT NEEDED?NO DOMESTIC VIOLENCE DO YOU FEEL SAFE IN YOUR ENVIRONMENT?YES DIET: REGULAR. EXERCISE: DAILY, WALKS. - PFS REFERRAL NEEDED?NO CLERGY REFERRAL NEEDED?NO PUBLIC HEALTH REFERRAL NEEDED?NO HAS THE PATIENT BEEN EDUCATED REGARDING HIS/HER PLAN OF CARE?YES HAS THE PATIENT BEEN EDUCATED REGARDING PAIN, THE RISK FOR PAIN, THE IMPORTANCE OF EFFECTIVE PAIN MANAGEMENT, AND THE PAIN ASSESSMENT PROCESS?YES ADVANCE DIRECTIVE ADVANCE DIRECTIVE DISCUSSED WITH PATIENT:YES PT. STATES HE DOES NOT HAVE ANY ADVANCE DIRECTIVES. HCP INFORMATION WAS GIVEN TO PATIENT AND ASSISTANCE WAS OFFERED IN COMPLETING FORM IF NEEDED. ALCOHOL USE: 3-4 DRINKS/WEEK. VITAL SIGNS WT 174.4 LBS, HT 69 IN, BMI 25.75 INDEX, BP 141/77 MM HG, HR 83 /MIN, RR 18 /MIN, TEMP 96.0 F, OXYGEN SAT % 100%, SAFE IN ENV? (Y/N) Y, NA INITIALS DC 11:23, REVIEWED BY: Rosa WALLACE RN. EXAMINATION GENERAL EXAMINATION: THE PATIENT IS ALERT, ORIENTED TIMES THREE AND COOPERATIVE. LUNGS ARE CLEAR TO AUSCULTATION. HEART SHOWS REGULAR RHYTHM, NO MURMURS AND NO GALLOPS. ASSESSMENTS SPONDYLOSIS WITHOUT MYELOPATHY OR RADICULOPATHY, LUMBAR REGION - M47.816 (PRIMARY) SPONDYLOSIS WITHOUT MYELOPATHY OR RADICULOPATHY, LUMBOSACRAL REGION - M47.817 TREATMENT SPONDYLOSIS WITHOUT MYELOPATHY OR RADICULOPATHY, LUMBAR REGION SMC FACET BLOCK (PAIN)[id number] COMPLETION OF PROCEDURAL VISIT WHEN MEETS CRITERIADEMARNI FELDERITA 05/30/2020 2:03:29 PM > MET @ 1314 SPONDYLOSIS WITHOUT MYELOPATHY OR RADICULOPATHY, LUMBOSACRAL REGION SMC FACET BLOCK (PAIN)[id number] OTHERS NOTES: 05/29/20 1510 PRE-PROCEDURE CALL COMPLETED. Rosa WALLACE RN. PROCEDURES PAIN NURSING RECORD PROCEDURE IN ROOM 1123, PHYSICIAN IN ROOM 1246, START 1252, FINISH 1258, PHYSICIAN OUT OF ROOM 1259, OUT OF ROOM 1305, ECG NORMAL SINUS, PATIENT SHIELDED YES, SAFETY STRAP YES, PREP CHLOROPREP BY Rosa WALLACE RN, DRESSING TEGADERM BY DR. ALEXANDRE LOC: MADISONN[place] 05/30/2020 11:43:00 AM > 1. ALERT, ORIENTED RESP: NIA WALLACE 05/30/2020 11:43:06 AM > 1. REGULAR, NO DYSPNEA COLOR: [place] 05/30/2020 11:43:13 AM > 1. PINK SKIN: NIA WALLACE 05/30/2020 11:43:16 AM > 1. WARM, DRY POSITION: NIA WALLACE 05/30/2020 11:43:20 AM > 5. SITTING NIA WALLACE 05/30/2020 12:25:17 PM > 1. PRONE NIA WALLACE 05/30/2020 1:10:54 PM > 5. SITTING VITALS: [place]IA 05/30/2020 12:25:21 PM > 146/86,71,16,100% NIA WALLACE 05/30/2020 12:40:12 PM > 165/100.67,16,99% NIA WALLACE 05/30/2020 12:57:56 PM > 150/95,72,16,100% NIA WALLACE 05/30/2020 1:03:32 PM > 175/103,69,18,100% POST PROCEDURE 169/81 69,18, 100% ON RA SHREE SOLANO 05/30/2020 1:14:01 PM > COMPLETION OF PROCEDURE APPOINTMENT: POST PAIN 2, DRESSING SITE DRY AND INTACT, IV N/A, GAIT STEADY, TEACHING COMPLETED, PATIENT ACKNOWLEDGES UNDERSTANDING YES, PROCEDURE APPOINTMENT COMPLETED AT 1314 BY: Jose Angel SOLANO RN PN LUMBAR FACET BLOCK DIAGNOSTIC PRE PROCEDURE DIAGNOSIS LUMBAR SPONDYLOSIS, LUMBOSACRAL SPONDYLOSIS POST PROCEDURE DIAGNOSIS LUMBAR SPONDYLOSIS, LUMBOSACRAL SPONDYLOSIS PROCEDURE LEFT L4-L5 AND LEFT L5-S1 FACET BLOCK DIAGNOSTIC NUMBER [address] MAURICIO ALEXANDRE ROOF PROMENADE TILE SETTER NONE ANESTHESIA LOCAL PRE PROCEDURE NOTE THE PATIENT WITH HISTORY OF CHRONIC LOW BACK PAIN. I EVALUATED THE PATIENT AND REVIEWED THE CHART. I WENT OVER THE RISKS, ALTERNATIVES, AND BENEFITS ASSOCIATED WITH THIS PROCEDURE. THE PATIENT WOULD LIKE TO PROCEED AND GAVE CONSENT TO PERFORM THE PROCEDURE. AGREED WITH THE PATIENT, WE ARE DOING THIS PROCEDURE TO DETERMINE IF THE PATIENT IS A CANDIDATE FOR A RADIOFREQUENCY ABLATION OF THE FACETS JOINTS. THE PATIENT DENIES UNEXPLAINABLE WEIGHT LOSS, FEVER, CHILLS, OR NEW CHANGES IN URINARY OR BOWEL CONTROL. THE PATIENT IS COVID-19 NEGATIVE DESCRIPTION OF PROCEDURE THE PATIENT WAS BROUGHT TO THE PROCEDURE ROOM AND PLACED IN THE PRONE POSITION. THE LUMBOSACRAL AREA WAS CLEANED WITH CHLORAPREP SOLUTION AND DRAPED ASEPTICALLY. THE PROCEDURE WAS DONE UNDER STERILE CONDITIONS. A TIMEOUT WAS PERFORMED WHERE THE CONSENTED SITE WAS VERIFIED WITH EVERYONE IN THE ROOM. UNDER FLUOROSCOPIC GUIDANCE, TARGETS WERE SELECTED AT THE INTERSECTION OF THE LEFT TRANSVERSE PROCESS OF L4, L5 AND ALA OF S1 WITH ITS RESPECTIVE SUPERIOR ARTICULAR PROCESS WITH A TARGET OF THE MEDIAN BRANCHES OF L3, L4 AND THE DORSAL RAMI OF L5. I CONFIRMED AGAIN THE SITE OF TARGET. LIDOCAINE WAS USED TO NUMB THE SKIN AND THE SUBCUTANEOUS TISSUE BELOW IT. SPINAL NEEDLE, 22-GAUGE, WAS ADVANCED UNDER FLUOROSCOPIC GUIDANCE AND FOLLOWING PATIENT FEEDBACK UNTIL THE TARGETS WERE REACHED. POSITION OF THE NEEDLES WAS VERIFIED WITH AP AND LATERAL VIEWS. AFTER PROPER POSITION OF THE NEEDLES WAS ACHIEVED, ISOVUE-M DYE 30%, 0.1 ML, WAS INJECTED AT EACH SITE SHOWING ADEQUATE SPREAD OF THE DYE. THEN, A SOLUTION OF 0.4 ML OF BUPIVACAINE 0.25% WAS INJECTED AT EACH SITE. THE MEDICATIONS WERE VERIFIED WITH THE NURSE. THERE WAS NO EVIDENCE OF BLOOD, PARESTHESIA OR CEREBROSPINAL FLUID DURING THE PROCEDURE. THE PATIENT WAS SENT TO THE RECOVERY ROOM. THE PATIENT WAS MOVING THE EXTREMITIES AND DOING WELL. THERE WERE NO COMPLICATIONS DURING THE PROCEDURE. ESTIMATED BLOOD LOSS WAS LESS THAN 5 ML. FLUOROSCOPY TIME WAS 36 SECONDS POST PROCEDURE NOTE THE PATIENT WILL DOCUMENT THE PAIN LEVEL AND RESPONSE TO THIS PROCEDURE PER PAIN DIARY. THE PATIENT WILL BE SEEN IN A FOLLOW UP IN THE NEXT FEW WEEKS. FURTHER DETERMINATION FOR THE PATIENT'S CASE WILL BE DONE AT THE NEXT VISIT. INSTRUCTIONS WERE GIVEN, QUESTIONS WERE ANSWERED, AND THE PATIENT EXPRESSED UNDERSTANDING AND AGREED WITH THE PLAN. I, NOHELIA MOORE, DOCUMENTED THE ABOVE INFORMATION ACTING A SCRIBE FOR DR. ALEXANDRE. I HAVE REVIEWED THE ABOVE DOCUMENT, WRITTEN BY NOHELIA MOORE, EYELET CUTTER, AND I VERIFY THAT IT IS ACCURATE PROCEDURE CODES 41209 INJ PARAVERT F JNT L/S 1 LEV, [place]IFI[place]: [place] [address] INJ PARAVERT F JNT L/S 2 LEV, MODIFIERS: LT DISPOSITION & COMMUNICATION FOLLOW UP FOLLOW UP WITH PARTS BACK COUNTER MAN (REASON: POST LEFT DIAGNOSTIC LUMBAR FACET BLOCK #2 L4-L5, L5-S1) ELECTRONICALLY SIGNED BY MAURICIO ALEXANDRE MD, MD ON 05/31/2020 AT 02:39 PM EDT DISCLAIMER : THIS IS A VISIT SUMMARY EXTRACTED FROM THE [employer] CHART. IT IS NOT A COPY OF THE [employer] PROGRESS NOTE. GABRIELA
== END ==
LOC: M PAIN 11:00
PROVIDERS: ATTEND Anesthesiology
DX: M47.816 Spondylosis without myelopathy or radiculopathy, lumbar region (principal); M47.817 Spondylosis without myelopathy or radiculopathy, lumbosacral region; G47.30 Sleep apnea, unspecified; K21.9 Gastro-esophageal reflux disease without esophagitis; G47.00 Insomnia, unspecified; F17.210 Nicotine dependence, cigarettes, uncomplicated; Z79.899 Other long term (current) drug therapy
CPT/HCPCS: 64493; 64494; Q9967

== ENCOUNTER → 2020-06-13 | Outpatient (CLI) | payer OTHER ==
[~2020-06-13] MED LIST changes: -BUPIVACAINE HCL 0.25% 30ML VIAL As Ordered ONE; -ISOVUE-M 300 61% 15ML VIAL As Ordered ONE; -LIDOCAINE 1% SDV 30ML VIAL As Ordered ONE
--- NOTE | 2020-06-16 08:02 | ECWPNPC ---
PATIENT NAME: ROSSY ACUÑA : 1965 GENDER: MALE VISIT DATE: 06/13/2020 DISCHARGE DATE: 06/13/20 1113 VISIT LOCKED DATE TIME: PHYSICIAN: ALINE HICKMAN RESOURCE: ALINE HICKMAN REASON FOR APPOINTMENT 1. POST LEFT DIAGNOSTIC LUMBAR FACET BLOCK L4-5,L5-S1 HISTORY OF PRESENT ILLNESS GENERAL: BEING SEEN TODAY FOR POST PROCEDURE FOLLOW-UP. HAD LEFT L4-5, L5-S1 DIAGNOSTIC BLOCK #2 ON 05/30/2020. REPORTING 100% REDUCTION IN PAIN FOR 24 HOURS THEN PAIN ABRUPTLY RETURNED TO BASELINE. REPORTING INCREASE IN LEFT LOW BACK PAIN OVER THE PAST FEW WEEKS. STATES RIGHT LOW BACK PAIN IS NEGLIGIBLE AT THIS POINT. DISCUSSED RADIOFREQUENCY PROCEDURE.-. FALL RISK SCREENING: SCREENING : NO FALLS REPORTED IN THE LAST YEAR. PAIN SCREENING: PATIENT HAS A COMPLAINT OF ACUTE OR CHRONIC PAIN :YES LOCATION OF PAIN:LOW BACK INTENSITY OF PAIN (SCALE OF 1 TO 10):2 WHAT DOES YOUR PAIN FEEL LIKE:ACHING, SHOOTING LEFT HIPS DURATION:CONTINOUS, CONSTANT, ALL DAY PAIN IS INCREASED BY:ACTIVITIES, PROLONGED STANDING LIFTING PAIN IS DECREASED BY:SITTING NURSING NOTE: -. PAIN CENTER INTAKE QUESTIONS: DO YOU HAVE A HISTORY OF MRSA? :NO DO YOU TAKE A BLOOD THINNERS? :NO DO YOU HAVE ANY BLEEDING DISORDERS? :NO ANY NEW NUMBNESS OR WEAKNESS IN YOUR LEGS OR ARMS? :NO ANY PACEMAKER,DEFIBRILLATOR, OR DORSAL COLUMN STIMULATOR? :NO DO YOU HAVE ANY RASHES OR OPEN SORES? :NO ARE YOU ALLERGIC TO IV DYE? :NO ARE YOU DIABETIC? :NO ANY NEW PROBLEMS WITH YOUR MEDICATIONS? :NO HAVE YOU RECEIVED A VACCINE IN THE PAST 30 DAYS? :NO DO YOU PLAN TO RECEIVE A VACCINE IN THE NEXT 21 DAYS? :YES IF SO WHAT VACCINE AND WHEN? 1ST COVID 06/15/2020 DO YOU NEED ANY PRESCRIPTION? :NO DO YOU TAKE ANY IMMUNOSUPPRESSIVE MEDICATIONS? :NO IS THERE A CHANCE YOU COULD BE ? :NO ARE YOU BREAST FEEDING? :NO CURRENT MEDICATIONS TAKING OMEPRAZOLE 40 MG CAPSULE DELAYED RELEASE 1 CAPSULE ORALLY ONCE A DAY TAKING LISINOPRIL 5 MG TABLET TAKE 3 TABLETS ORALLY DAILY TAKING PERCOCET 7.5-325 MG TABLET 1 TABLET NEEDED ORALLY DAILY TAKING EZETIMIBE 10 MG TABLET 1 TABLET ORALLY ONCE A DAY TAKING ESCITALOPRAM OXALATE 10 MG TABLET 1 TABLET ORALLY ONCE A DAY TAKING TRAZODONE HCL 50 MG TABLET 1 TABLET AT BEDTIME NEEDED ORALLY ONCE A DAY TAKING HYDROXYZINE PAMOATE 25 MG CAPSULE 1-3 CAPSULE NEEDED ORALLY EVERY 8 HRS TAKING CYCLOBENZAPRINE HCL 5 MG TABLET 1 TABLET AT BEDTIME NEEDED ORALLY ONCE A DAY, NOTES: 05/30 1999 TAKING D3 VITAMIN 2000 UNITS 1 TABLET ORALLY DAILY NOT-TAKING VITAMIN D (ERGOCALCIFEROL) 1.25 MG (91026 UT) CAPSULE 1 CAPSULE ORALLY WEEKLY NOT-TAKING METHOCARBAMOL 750 MG TABLET 1 TABLET ORALLY BID, NOTES: 04/03 2099 NOT-TAKING IBUPROFEN 400 MG TABLET 1 TABLET ORALLY THREE TIMES A DAY PRN PAST MEDICAL HISTORY BARRETTS ESOPHAGUS NECK PAIN OSTEOARTHRITIS CRUSHED SPINAL CORD - NERVE CONDUCTION TEST SHOWED MISFIRING NERVES GENERALIZED MUSCLE WEAKNESS LOWER BACK PAIN ACID REFLUX INSOMNIA LICHEN PLANUS ALLERGIES N.K.D.A. SOCIAL HISTORY GENERAL: TOBACCO USE ARE YOU A:CURRENT SMOKER ARE YOU INTERESTED IN QUITTING?THINKING ABOUT QUITTING COUNSELED THE PATIENT ON SMOKING CESSATION, EDUCATION [id number]/31/2021 HOW MANY CIGARETTES A DAY DO YOU SMOKE?5 OR LESS HOW SOON AFTER YOU WAKE UP DO YOU SMOKE YOUR FIRST CIGARETTE?WITHIN 5 MIN PATIENT COUNSELED ON THE DANGERS OF TOBACCO USE AND URGED TO QUIT:05/29/2020 WE DISCUSSED CUTTING DOWN TO FEW POSSIBLE LATEX QUESTIONNAIRE LATEX ALLERGY : HAVE YOU EVER DEVELOPED ANY TYPE OF REACTION AFTER HANDLING LATEX PRODUCTS SUCH RUBBER GLOVES, CONDOMS, DIAPHRAGMS, BALLOONS, SOCKS, OR UNDERWEAR?NO LATEX ALLERGY : HAVE YOU EVER DEVELOPED ANY TYPE OF REACTION DURING OR AFTER DENTAL APPOINTMENT, VAGINAL/RECTAL EXAMINATION, SURGICAL PROCEDURE, OR ANY OTHER EXPOSURE?NO LATEX RISK : HAVE YOU EVER HAD ANY DIFFICULTY BREATHING OR HIVES AFTER EATING OR HANDLING ANY FRUITS, OR VEGETABLES; SUCH KIWI, BANANAS, STONE FRUITS, OR CHESTNUTSNO LATEX RISK : DO YOU HAVE A PREVIOUS PERSONAL HISTORY OF MORE THAN NINE SURGERIES, SPINA BIFIDA, OR REPEATED CATHERIZATIONS? NO LATEX RISK : ARE YOU FREQUENTLY EXPOSED TO LATEX PRODUCTS IN YOUR OCCUPATION?YES DATE ASKED : 06/13/2020 ALCOHOL USE: YES. ALCOHOL SCREENING DID YOU HAVE A DRINK CONTAINING ALCOHOL IN THE PAST YEAR?YES HOW OFTEN DID YOU HAVE SIX OR MORE DRINKS ON ONE OCCASION IN THE PAST YEAR?WEEKLY (3 POINTS) HOW MANY DRINKS DID YOU HAVE ON A TYPICAL DAY WHEN YOU WERE DRINKING IN THE PAST YEAR?5 OR 6 (2 POINTS) HOW OFTEN DID YOU HAVE A DRINK CONTAINING ALCOHOL IN THE PAST YEAR?TWO TO FOUR TIMES A MONTH (2 POINTS) POINTS7 INTERPRETATIONPOSITIVE RECREATIONAL DRUG USE DRUG USE?NO CAFFEINE CAFFEINE USE?YES HOW OFTEN AND HOW MUCH? 3 CUPS COFFEE IN THE AM PRESYBETERIAN NO TENRIISM BELIEFS THAT WOULD IMPACT HEALTH CARE. LANGUAGE LANGUAGES SPOKEN:[place] EDUCATION LEVEL OF EDUCATION:HIGH SCHOOL LEARNING BARRIERS / SPECIAL NEEDS CHANGE FROM LAST VISIT?NO BARRIERS TO LEARNING?NO HEARING IMPAIRED?NO VISION IMPAIRED?NO COGNITIVELY IMPAIRED?NO READINESS TO LEARN?YES LEARNING PREFERENCES?NO LEARNING CAPABILITIES PRESENT?YES EMOTIONAL BARRIERS?NO SPECIAL DEVICES?NO STAFF REPORTER NEEDED?NO DOMESTIC VIOLENCE DO YOU FEEL SAFE IN YOUR ENVIRONMENT?YES DIET: REGULAR. EXERCISE: DAILY, WALKS. - PFS REFERRAL NEEDED?NO CLERGY REFERRAL NEEDED?NO PUBLIC HEALTH REFERRAL NEEDED?NO HAS THE PATIENT BEEN EDUCATED REGARDING HIS/HER PLAN OF CARE?YES HAS THE PATIENT BEEN EDUCATED REGARDING PAIN, THE RISK FOR PAIN, THE IMPORTANCE OF EFFECTIVE PAIN MANAGEMENT, AND THE PAIN ASSESSMENT PROCESS?YES ADVANCE DIRECTIVE ADVANCE DIRECTIVE DISCUSSED WITH PATIENT:YES PT. STATES HE DOES NOT HAVE ANY ADVANCE DIRECTIVES. HCP INFORMATION WAS GIVEN TO PATIENT AND ASSISTANCE WAS OFFERED IN COMPLETING FORM IF NEEDED. ALCOHOL USE: 3-4 DRINKS/WEEK. REVIEW OF SYSTEMS CONSTITUTIONAL: ANY RECENT FEVER NO . CHILLS NO . WEIGHT CHANGE OF UNKNOWN REASONS NO . GASTROENTEROLOGY: NEW UNEXPLAINABLE CHANGES IN BOWEL CONTROL NO . CONSTIPATION NO . GENITOURINARY: ANY NEW CHANGE IN BLADDER CONTROL? NO . NEUROLOGY: NEW ONSET DIZZINESS OR NEUROLOGICAL CHANGES NOT MENTIONED NO . NEW NUMBNESS OR PAIN PATTERNS NOT MENTIONED AND PERTINENT TO TODAY'S VISIT NO . CARDIOLOGY: NEW CHEST PRESSURE NO . PATIENT DENIES NO . RESPIRATORY: UNEXPLAINABLE COUGH NO . NEW SHORTNESS OF BREATH NO . VITAL SIGNS WT 178.2 LBS, HT 69 IN, BMI 26.31 INDEX, BP 152/75 MM HG, HR 80 /MIN, RR 18 /MIN, TEMP 97.0 F, OXYGEN SAT % 98%, SAFE IN ENV? (Y/N) YES, NA INITIALS AW 1041T.ELISE RODAS. EXAMINATION GENERAL EXAMINATION: GENERALNO ACUTE DISTRESS, WELL NOURISHED AND HYDRATED. PSYCHAPPROPRIATE MOOD AND AFFECT . NECK:NO LYMPHADENOPATHY, SUPPLE. LUNGS: LUNG SOUNDS ARE CLEAR . HEART: HEART RATE REGULAR . MUSCULOSKELETAL:*, MUSCLE STRENGTH TESTING 5/5 BILATERAL LOWER EXTREMITIES., ,PALPATION: SPECIFIC POINT TENDERNESS OVER BILAT L4/5-L5/S1 LUMBR FACETS WITH FACET LOADING . NEUROLOGIC EXAM:NORMAL SENSATION TO LIGHT TOUCH LOWER EXTREMITIES. . DIAGNOSTIC TESTS REVIEWED MRI L/S SPINE 06/2019. ASSESSMENTS SPONDYLOSIS WITHOUT MYELOPATHY OR RADICULOPATHY, LUMBAR REGION - M47.816 (PRIMARY) OTHER CHRONIC PAIN - G89.29 TREATMENT SPONDYLOSIS WITHOUT MYELOPATHY OR RADICULOPATHY, LUMBAR REGION MEDICATION: VALIUM TAB 10MG ORALLY (DIAZEPAM) (ORDERED FOR 06/20/2020) MEDICATION: OXYCODONE HCL TAB 10MG ORALLY (ORDERED FOR 06/20/2020) NOTES: LEFT LUMBAR COOL RADIOFREQUENCY L4-5,L5-S1. OTHER CHRONIC PAIN PAIN PROCEDURE LOGDATE OF PROCEDURE1PROCEDURE:LEFT DIAGNOSTIC LUMBAR FACET BLOCK #2 L4-L5,L5-O1LDUWPV OF PRE SEDATE0/0RESULT:100% REDUCTION IN PAIN FOR GREATER THAN 6 HOURS PROCEDURE CODES FA211 ESTABILISHED PATIENT [facility] CHARGE DISPOSITION & COMMUNICATION FOLLOW UP POST PROCEDURE (REASON: LEFT LUMBAR COOL RADIOFREQUENCY L4-5,L5-S1) ELECTRONICALLY SIGNED BY JOSE DOWNEY ON 06/15/2020 AT 01:41 PM EDT DISCLAIMER : THIS IS A VISIT SUMMARY EXTRACTED FROM THE [employer] CHART. IT IS NOT A COPY OF THE [facility] PROGRESS NOTE. GABRIELA
--- NOTE | 2020-06-16 08:04 | ECWPNPC ---
PATIENT NAME: ROSSY ACUÑA : 1965 GENDER: MALE VISIT DATE: 06/13/2020 DISCHARGE DATE: 06/13/20 1113 VISIT LOCKED DATE TIME: PHYSICIAN: ALINE HICKMAN RESOURCE: ALINE HICKMAN REASON FOR APPOINTMENT 1. POST LEFT DIAGNOSTIC LUMBAR FACET BLOCK L4-5,L5-S1 HISTORY OF PRESENT ILLNESS GENERAL: BEING SEEN TODAY FOR POST PROCEDURE FOLLOW-UP. HAD LEFT L4-5, L5-S1 DIAGNOSTIC BLOCK #2 ON 05/30/2020. REPORTING 100% REDUCTION IN PAIN FOR 24 HOURS THEN PAIN ABRUPTLY RETURNED TO BASELINE. REPORTING INCREASE IN LEFT LOW BACK PAIN OVER THE PAST FEW WEEKS. STATES RIGHT LOW BACK PAIN IS NEGLIGIBLE AT THIS POINT. DISCUSSED RADIOFREQUENCY PROCEDURE.-. FALL RISK SCREENING: SCREENING : NO FALLS REPORTED IN THE LAST YEAR. PAIN SCREENING: PATIENT HAS A COMPLAINT OF ACUTE OR CHRONIC PAIN :YES LOCATION OF PAIN:LOW BACK INTENSITY OF PAIN (SCALE OF 1 TO 10):2 WHAT DOES YOUR PAIN FEEL LIKE:ACHING, SHOOTING LEFT HIPS DURATION:CONTINOUS, CONSTANT, ALL DAY PAIN IS INCREASED BY:ACTIVITIES, PROLONGED STANDING LIFTING PAIN IS DECREASED BY:SITTING NURSING NOTE: -. PAIN CENTER INTAKE QUESTIONS: DO YOU HAVE A HISTORY OF MRSA? :NO DO YOU TAKE A BLOOD THINNERS? :NO DO YOU HAVE ANY BLEEDING DISORDERS? :NO ANY NEW NUMBNESS OR WEAKNESS IN YOUR LEGS OR ARMS? :NO ANY PACEMAKER,DEFIBRILLATOR, OR DORSAL COLUMN STIMULATOR? :NO DO YOU HAVE ANY RASHES OR OPEN SORES? :NO ARE YOU ALLERGIC TO IV DYE? :NO ARE YOU DIABETIC? :NO ANY NEW PROBLEMS WITH YOUR MEDICATIONS? :NO HAVE YOU RECEIVED A VACCINE IN THE PAST 30 DAYS? :NO DO YOU PLAN TO RECEIVE A VACCINE IN THE NEXT 21 DAYS? :YES IF SO WHAT VACCINE AND WHEN? 1ST COVID 06/15/2020 DO YOU NEED ANY PRESCRIPTION? :NO DO YOU TAKE ANY IMMUNOSUPPRESSIVE MEDICATIONS? :NO IS THERE A CHANCE YOU COULD BE ? :NO ARE YOU BREAST FEEDING? :NO CURRENT MEDICATIONS TAKING OMEPRAZOLE 40 MG CAPSULE DELAYED RELEASE 1 CAPSULE ORALLY ONCE A DAY TAKING LISINOPRIL 5 MG TABLET TAKE 3 TABLETS ORALLY DAILY TAKING PERCOCET 7.5-325 MG TABLET 1 TABLET NEEDED ORALLY DAILY TAKING EZETIMIBE 10 MG TABLET 1 TABLET ORALLY ONCE A DAY TAKING ESCITALOPRAM OXALATE 10 MG TABLET 1 TABLET ORALLY ONCE A DAY TAKING TRAZODONE HCL 50 MG TABLET 1 TABLET AT BEDTIME NEEDED ORALLY ONCE A DAY TAKING HYDROXYZINE PAMOATE 25 MG CAPSULE 1-3 CAPSULE NEEDED ORALLY EVERY 8 HRS TAKING CYCLOBENZAPRINE HCL 5 MG TABLET 1 TABLET AT BEDTIME NEEDED ORALLY ONCE A DAY, NOTES: 05/30 1999 TAKING D3 VITAMIN 2000 UNITS 1 TABLET ORALLY DAILY NOT-TAKING VITAMIN D (ERGOCALCIFEROL) 1.25 MG (81063 UT) CAPSULE 1 CAPSULE ORALLY WEEKLY NOT-TAKING METHOCARBAMOL 750 MG TABLET 1 TABLET ORALLY BID, NOTES: 04/03 2099 NOT-TAKING IBUPROFEN 400 MG TABLET 1 TABLET ORALLY THREE TIMES A DAY PRN PAST MEDICAL HISTORY BARRETTS ESOPHAGUS NECK PAIN OSTEOARTHRITIS CRUSHED SPINAL CORD - NERVE CONDUCTION TEST SHOWED MISFIRING NERVES GENERALIZED MUSCLE WEAKNESS LOWER BACK PAIN ACID REFLUX INSOMNIA LICHEN PLANUS ALLERGIES N.K.D.A. SOCIAL HISTORY GENERAL: TOBACCO USE ARE YOU A:CURRENT SMOKER ARE YOU INTERESTED IN QUITTING?THINKING ABOUT QUITTING COUNSELED THE PATIENT ON SMOKING CESSATION, EDUCATION QEETRDBP08/31/2021 HOW MANY CIGARETTES A DAY DO YOU SMOKE?5 OR LESS HOW SOON AFTER YOU WAKE UP DO YOU SMOKE YOUR FIRST CIGARETTE?WITHIN 5 MIN PATIENT COUNSELED ON THE DANGERS OF TOBACCO USE AND URGED TO QUIT:05/29/2020 WE DISCUSSED CUTTING DOWN TO FEW POSSIBLE LATEX QUESTIONNAIRE LATEX ALLERGY : HAVE YOU EVER DEVELOPED ANY TYPE OF REACTION AFTER HANDLING LATEX PRODUCTS SUCH RUBBER GLOVES, CONDOMS, DIAPHRAGMS, BALLOONS, SOCKS, OR UNDERWEAR?NO LATEX ALLERGY : HAVE YOU EVER DEVELOPED ANY TYPE OF REACTION DURING OR AFTER DENTAL APPOINTMENT, VAGINAL/RECTAL EXAMINATION, SURGICAL PROCEDURE, OR ANY OTHER EXPOSURE?NO LATEX RISK : HAVE YOU EVER HAD ANY DIFFICULTY BREATHING OR HIVES AFTER EATING OR HANDLING ANY FRUITS, OR VEGETABLES; SUCH KIWI, BANANAS, STONE FRUITS, OR CHESTNUTSNO LATEX RISK : DO YOU HAVE A PREVIOUS PERSONAL HISTORY OF MORE THAN NINE SURGERIES, SPINA BIFIDA, OR REPEATED CATHERIZATIONS? NO LATEX RISK : ARE YOU FREQUENTLY EXPOSED TO LATEX PRODUCTS IN YOUR OCCUPATION?YES DATE ASKED : 06/13/2020 ALCOHOL USE: YES. ALCOHOL SCREENING DID YOU HAVE A DRINK CONTAINING ALCOHOL IN THE PAST YEAR?YES HOW OFTEN DID YOU HAVE SIX OR MORE DRINKS ON ONE OCCASION IN THE PAST YEAR?WEEKLY (3 POINTS) HOW MANY DRINKS DID YOU HAVE ON A TYPICAL DAY WHEN YOU WERE DRINKING IN THE PAST YEAR?5 OR 6 (2 POINTS) HOW OFTEN DID YOU HAVE A DRINK CONTAINING ALCOHOL IN THE PAST YEAR?TWO TO FOUR TIMES A MONTH (2 POINTS) POINTS7 INTERPRETATIONPOSITIVE RECREATIONAL DRUG USE DRUG USE?NO CAFFEINE CAFFEINE USE?YES HOW OFTEN AND HOW MUCH? 3 CUPS COFFEE IN THE AM WORSHIP NO MANDAEISM BELIEFS THAT WOULD IMPACT HEALTH CARE. LANGUAGE LANGUAGES SPOKEN:[place] EDUCATION LEVEL OF EDUCATION:HIGH SCHOOL LEARNING BARRIERS / SPECIAL NEEDS CHANGE FROM LAST VISIT?NO BARRIERS TO LEARNING?NO HEARING IMPAIRED?NO VISION IMPAIRED?NO COGNITIVELY IMPAIRED?NO READINESS TO LEARN?YES LEARNING PREFERENCES?NO LEARNING CAPABILITIES PRESENT?YES EMOTIONAL BARRIERS?NO SPECIAL DEVICES?NO PRETZEL PACKER NEEDED?NO DOMESTIC VIOLENCE DO YOU FEEL SAFE IN YOUR ENVIRONMENT?YES DIET: REGULAR. EXERCISE: DAILY, WALKS. - PFS REFERRAL NEEDED?NO CLERGY REFERRAL NEEDED?NO PUBLIC HEALTH REFERRAL NEEDED?NO HAS THE PATIENT BEEN EDUCATED REGARDING HIS/HER PLAN OF CARE?YES HAS THE PATIENT BEEN EDUCATED REGARDING PAIN, THE RISK FOR PAIN, THE IMPORTANCE OF EFFECTIVE PAIN MANAGEMENT, AND THE PAIN ASSESSMENT PROCESS?YES ADVANCE DIRECTIVE ADVANCE DIRECTIVE DISCUSSED WITH PATIENT:YES PT. STATES HE DOES NOT HAVE ANY ADVANCE DIRECTIVES. HCP INFORMATION WAS GIVEN TO PATIENT AND ASSISTANCE WAS OFFERED IN COMPLETING FORM IF NEEDED. ALCOHOL USE: 3-4 DRINKS/WEEK. REVIEW OF SYSTEMS CONSTITUTIONAL: ANY RECENT FEVER NO . CHILLS NO . WEIGHT CHANGE OF UNKNOWN REASONS NO . GASTROENTEROLOGY: NEW UNEXPLAINABLE CHANGES IN BOWEL CONTROL NO . CONSTIPATION NO . GENITOURINARY: ANY NEW CHANGE IN BLADDER CONTROL? NO . NEUROLOGY: NEW ONSET DIZZINESS OR NEUROLOGICAL CHANGES NOT MENTIONED NO . NEW NUMBNESS OR PAIN PATTERNS NOT MENTIONED AND PERTINENT TO TODAY'S VISIT NO . CARDIOLOGY: NEW CHEST PRESSURE NO . PATIENT DENIES NO . RESPIRATORY: UNEXPLAINABLE COUGH NO . NEW SHORTNESS OF BREATH NO . VITAL SIGNS WT 178.2 LBS, HT 69 IN, BMI 26.31 INDEX, BP 152/75 MM HG, HR 80 /MIN, RR 18 /MIN, TEMP 97.0 F, OXYGEN SAT % 98%, SAFE IN ENV? (Y/N) YES, NA INITIALS AW 1041T.ELISE RODAS. EXAMINATION GENERAL EXAMINATION: GENERALNO ACUTE DISTRESS, WELL NOURISHED AND HYDRATED. PSYCHAPPROPRIATE MOOD AND AFFECT . NECK:NO LYMPHADENOPATHY, SUPPLE. LUNGS: LUNG SOUNDS ARE CLEAR . HEART: HEART RATE REGULAR . MUSCULOSKELETAL:*, MUSCLE STRENGTH TESTING 5/5 BILATERAL LOWER EXTREMITIES., ,PALPATION: SPECIFIC POINT TENDERNESS OVER BILAT L4/5-L5/S1 LUMBR FACETS WITH FACET LOADING . NEUROLOGIC EXAM:NORMAL SENSATION TO LIGHT TOUCH LOWER EXTREMITIES. . DIAGNOSTIC TESTS REVIEWED MRI L/S SPINE 06/2019. ASSESSMENTS SPONDYLOSIS WITHOUT MYELOPATHY OR RADICULOPATHY, LUMBAR REGION - M47.816 (PRIMARY) OTHER CHRONIC PAIN - G89.29 TREATMENT SPONDYLOSIS WITHOUT MYELOPATHY OR RADICULOPATHY, LUMBAR REGION MEDICATION: VALIUM TAB 10MG ORALLY (DIAZEPAM) (ORDERED FOR 06/20/2020) MEDICATION: OXYCODONE HCL TAB 10MG ORALLY (ORDERED FOR 06/20/2020) NOTES: LEFT LUMBAR COOL RADIOFREQUENCY L4-5,L5-S1. OTHER CHRONIC PAIN PAIN PROCEDURE LOGDATE OF PROCEDURE1PROCEDURE:LEFT DIAGNOSTIC LUMBAR FACET BLOCK #2 L4-L5,L5-U8ZGQLZE OF PRE SEDATE0/0RESULT:100% REDUCTION IN PAIN FOR GREATER THAN 6 HOURS PROCEDURE CODES FA211 ESTABILISHED PATIENT [facility] CHARGE DISPOSITION & COMMUNICATION FOLLOW UP POST PROCEDURE (REASON: LEFT LUMBAR COOL RADIOFREQUENCY L4-5,L5-S1) ELECTRONICALLY SIGNED BY JOSE DOWNEY ON 06/15/2020 AT 01:41 PM EDT DISCLAIMER : THIS IS A VISIT SUMMARY EXTRACTED FROM THE [employer] CHART. IT IS NOT A COPY OF THE [employer] PROGRESS NOTE. GABRIELA
== END ==
LOC: M PAIN 10:30
PROVIDERS: ATTEND Nurse Practitioner Family
DX: M47.816 Spondylosis without myelopathy or radiculopathy, lumbar region (principal); G89.29 Other chronic pain; K21.9 Gastro-esophageal reflux disease without esophagitis; G47.00 Insomnia, unspecified; F17.210 Nicotine dependence, cigarettes, uncomplicated; Z79.899 Other long term (current) drug therapy

== ENCOUNTER → 2020-07-06 | Outpatient (CLI) | payer OTHER | LOC: M LABSMTC 10:14 | PROVIDERS: ATTEND Anesthesiology | DX: Z01.812 Encounter for preprocedural laboratory examination (principal) ==

== ENCOUNTER → 2020-07-11 | Outpatient (CLI) | payer OTHER ==
[~2020-07-11] MED LIST changes: +BUPIVACAINE HCL 0.25% 30ML VIAL As Ordered ONE; +LIDOCAINE 1% SDV 30ML VIAL As Ordered ONE; +dexameTHASONE 10MG/1ML VIAL PRES.FREE (J1100 PER 1MG) As Ordered ONE; +diazePAM 5MG TABLET As Ordered ONE; +oxyCODONE 5MG TAB As Ordered ONE
--- NOTE | 2020-07-25 03:40 | ECWPNPC ---
PATIENT NAME: ROSSY ACUÑA : 1965 GENDER: MALE VISIT DATE: 07/11/2020 DISCHARGE DATE: 07/11/20 1601 VISIT LOCKED DATE TIME: PHYSICIAN: MAURICIO ALEXANDRE MD RESOURCE: MAURICIO ALEXANDRE MD REASON FOR APPOINTMENT 1. LEFT LUMBAR COOL RADIOFREQUENCY L4-5,L5-S1 HISTORY OF PRESENT ILLNESS GENERAL: 55-YEAR-OLD MALE PATIENT WITH A HISTORY OF CHRONIC LOW BACK PAIN. THE PATIENT DESCRIBES THE PAIN CONTINUOUS, SHARP AND STABBING WITH A PAIN SCORE RANGING FROM 6-10/10 IN THE LEFT LOWER BACK. WE HAVE DONE SOME DIAGNOSTIC TEST TO CONSIDER RADIOFREQUENCY. HE IS AT OUR FACILITY TO PERFORM THE RADIOFREQUENCY TODAY. FALL RISK SCREENING: SCREENING : NO FALLS REPORTED IN THE LAST YEAR. PAIN SCREENING: PATIENT HAS A COMPLAINT OF ACUTE OR CHRONIC PAIN :YES LOCATION OF PAIN:LOW BACK INTENSITY OF PAIN (SCALE OF 1 TO 10):6 WHAT DOES YOUR PAIN FEEL LIKE:ACHING, CONTINOUS, SHARP, STABBING, TENDER, THROBBING, SORE DURATION:CONTINOUS PAIN IS INCREASED BY:ACTIVITIES, PROLONGED STANDING PAIN IS DECREASED BY:USE OF PAIN MEDICATIONS NURSING NOTE: -. PAIN CENTER INTAKE QUESTIONS: DO YOU HAVE A HISTORY OF MRSA? :NO DO YOU TAKE A BLOOD THINNERS? :NO DO YOU HAVE ANY BLEEDING DISORDERS? :NO ANY NEW NUMBNESS OR WEAKNESS IN YOUR LEGS OR ARMS? :NO ANY PACEMAKER,DEFIBRILLATOR, OR DORSAL COLUMN STIMULATOR? :NO DO YOU HAVE ANY RASHES OR OPEN SORES? :NO ARE YOU ALLERGIC TO IV DYE? :NO ARE YOU DIABETIC? :NO ANY NEW PROBLEMS WITH YOUR MEDICATIONS? :NO HAVE YOU RECEIVED A VACCINE IN THE PAST 30 DAYS? :YES COVID VACCINE 3 WEEKS AGO. KIMBERLY AND KIMBERLY DO YOU PLAN TO RECEIVE A VACCINE IN THE NEXT 21 DAYS? :NO DO YOU TAKE ANY IMMUNOSUPPRESSIVE MEDICATIONS? :NO ANY HISTORY OF SEIZURES? :NO ANY HISTORY OF CARDIAC ISSUES OR EVENTS? :NO DO YOU HAVE ANY KIDNEY OR LIVER DISEASE? :NO DO YOU HAVE SLEEP APNEA? :YES DO YOU WEAR A CPAP?NO ANY RECENT HEAD INJURY? :NO DO YOU HAVE ANY NEW INFECTIONS? :NO IS THERE A CHANCE YOU COULD BE ? :NO ARE YOU BREAST FEEDING? :NO WHEN DID YOU LAST EAT? : -07/10 1914 WHEN DID YOU LAST DRINK? : -07/11 599 WHAT DID YOU LAST DRINK? : -BLACK COFFEE NAME OF PERSON DRIVING YOU HOME? : -JEREMY-DAD DO YOU HAVE ANY OTHER QUESTIONS OR CONCERNS? : - CURRENT MEDICATIONS TAKING OMEPRAZOLE 40 MG CAPSULE DELAYED RELEASE 1 CAPSULE ORALLY ONCE A DAY TAKING LISINOPRIL 5 MG TABLET TAKE 3 TABLETS ORALLY DAILY, NOTES: 07/11 0600 TAKING PERCOCET 7.5-325 MG TABLET 1 TABLET NEEDED ORALLY DAILY, NOTES: 07/10 TAKING EZETIMIBE 10 MG TABLET 1 TABLET ORALLY ONCE A DAY TAKING ESCITALOPRAM OXALATE 10 MG TABLET 1 TABLET ORALLY ONCE A DAY TAKING TRAZODONE HCL 50 MG TABLET 1 TABLET AT BEDTIME NEEDED ORALLY ONCE A DAY, NOTES: 07/10 TAKING HYDROXYZINE PAMOATE 25 MG CAPSULE 1-3 CAPSULE NEEDED ORALLY EVERY 8 HRS TAKING CYCLOBENZAPRINE HCL 5 MG TABLET 1 TABLET AT BEDTIME NEEDED ORALLY ONCE A DAY, NOTES: 07/10 TAKING D3 VITAMIN 2000 UNITS 1 TABLET ORALLY DAILY NOT-TAKING VITAMIN D (ERGOCALCIFEROL) 1.25 MG (19858 UT) CAPSULE 1 CAPSULE ORALLY WEEKLY NOT-TAKING METHOCARBAMOL 750 MG TABLET 1 TABLET ORALLY BID, NOTES: 04/03 2099 NOT-TAKING IBUPROFEN 400 MG TABLET 1 TABLET ORALLY THREE TIMES A DAY PRN MEDICATION LIST REVIEWED AND RECONCILED WITH THE PATIENT PAST MEDICAL HISTORY BARRETTS ESOPHAGUS NECK PAIN OSTEOARTHRITIS CRUSHED SPINAL CORD - NERVE CONDUCTION TEST SHOWED MISFIRING NERVES GENERALIZED MUSCLE WEAKNESS LOWER BACK PAIN ACID REFLUX INSOMNIA LICHEN PLANUS ALLERGIES N.K.D.A. SURGICAL HISTORY CERVICAL 5,6,7 FUSION DONE TO KEEP SYMPTOMS FROM PROGRESSING 09/11/15 PROCEDURES EGD AND COLONOSCOPIES FAMILY HISTORY FATHER: ALIVE 76 YRS MOTHER: ALIVE 76 YRS SIBLINGS: ALIVE SON(S): ALIVE 2 SON(S) - HEALTHY. FATHER: FIBROMYALGIA, [id number], OSTEOARTHRITISBOTHER-OSTEOARTHRITIS, MACULAR DEGENERATIONPATERNAL SIDE 6 UNCLES HAVE FROM DIFFERENT TYPES OF CANCER, COLON, PROSTATE. SOCIAL HISTORY GENERAL: TOBACCO USE ARE YOU A:CURRENT SMOKER ARE YOU INTERESTED IN QUITTING?THINKING ABOUT QUITTING COUNSELED THE PATIENT ON SMOKING CESSATION, EDUCATION [id number]/31/2021 HOW MANY CIGARETTES A DAY DO YOU SMOKE?5 OR LESS HOW SOON AFTER YOU WAKE UP DO YOU SMOKE YOUR FIRST CIGARETTE?WITHIN 5 MIN PATIENT COUNSELED ON THE DANGERS OF TOBACCO USE AND URGED TO QUIT:05/29/2020 WE DISCUSSED CUTTING DOWN TO FEW POSSIBLE LATEX QUESTIONNAIRE LATEX ALLERGY : HAVE YOU EVER DEVELOPED ANY TYPE OF REACTION AFTER HANDLING LATEX PRODUCTS SUCH RUBBER GLOVES, CONDOMS, DIAPHRAGMS, BALLOONS, SOCKS, OR UNDERWEAR?NO LATEX ALLERGY : HAVE YOU EVER DEVELOPED ANY TYPE OF REACTION DURING OR AFTER DENTAL APPOINTMENT, VAGINAL/RECTAL EXAMINATION, SURGICAL PROCEDURE, OR ANY OTHER EXPOSURE?NO LATEX RISK : HAVE YOU EVER HAD ANY DIFFICULTY BREATHING OR HIVES AFTER EATING OR HANDLING ANY FRUITS, OR VEGETABLES; SUCH KIWI, BANANAS, STONE FRUITS, OR CHESTNUTSNO LATEX RISK : DO YOU HAVE A PREVIOUS PERSONAL HISTORY OF MORE THAN NINE SURGERIES, SPINA BIFIDA, OR REPEATED CATHERIZATIONS? NO LATEX RISK : ARE YOU FREQUENTLY EXPOSED TO LATEX PRODUCTS IN YOUR OCCUPATION?YES DATE ASKED : 07/11/2020 ALCOHOL USE: YES. ALCOHOL SCREENING DID YOU HAVE A DRINK CONTAINING ALCOHOL IN THE PAST YEAR?YES HOW OFTEN DID YOU HAVE SIX OR MORE DRINKS ON ONE OCCASION IN THE PAST YEAR?WEEKLY (3 POINTS) HOW MANY DRINKS DID YOU HAVE ON A TYPICAL DAY WHEN YOU WERE DRINKING IN THE PAST YEAR?5 OR 6 (2 POINTS) HOW OFTEN DID YOU HAVE A DRINK CONTAINING ALCOHOL IN THE PAST YEAR?TWO TO FOUR TIMES A MONTH (2 POINTS) POINTS7 INTERPRETATIONPOSITIVE RECREATIONAL DRUG USE DRUG USE?NO CAFFEINE CAFFEINE USE?YES HOW OFTEN AND HOW MUCH? 3 CUPS COFFEE IN THE AM TENRIISM NO QUAKER BELIEFS THAT WOULD IMPACT HEALTH CARE. LANGUAGE LANGUAGES SPOKEN:[place] EDUCATION LEVEL OF EDUCATION:HIGH SCHOOL LEARNING BARRIERS / SPECIAL NEEDS CHANGE FROM LAST VISIT?NO BARRIERS TO LEARNING?NO HEARING IMPAIRED?NO VISION IMPAIRED?NO COGNITIVELY IMPAIRED?NO READINESS TO LEARN?YES LEARNING PREFERENCES?NO LEARNING CAPABILITIES PRESENT?YES EMOTIONAL BARRIERS?NO SPECIAL DEVICES?NO UNDERWEAR WELTER NEEDED?NO DOMESTIC VIOLENCE DO YOU FEEL SAFE IN YOUR ENVIRONMENT?YES DIET: REGULAR. EXERCISE: DAILY, WALKS. - PFS REFERRAL NEEDED?NO CLERGY REFERRAL NEEDED?NO PUBLIC HEALTH REFERRAL NEEDED?NO HAS THE PATIENT BEEN EDUCATED REGARDING HIS/HER PLAN OF CARE?YES HAS THE PATIENT BEEN EDUCATED REGARDING PAIN, THE RISK FOR PAIN, THE IMPORTANCE OF EFFECTIVE PAIN MANAGEMENT, AND THE PAIN ASSESSMENT PROCESS?YES ADVANCE DIRECTIVE ADVANCE DIRECTIVE DISCUSSED WITH PATIENT:YES PT. STATES HE DOES NOT HAVE ANY ADVANCE DIRECTIVES. HCP INFORMATION WAS GIVEN TO PATIENT AND ASSISTANCE WAS OFFERED IN COMPLETING FORM IF NEEDED. ALCOHOL USE: 3-4 DRINKS/WEEK. HOSPITALIZATION/MAJOR DIAGNOSTIC PROCEDURE SURGICAL RELATED REVIEW OF SYSTEMS CONSTITUTIONAL: ANY RECENT FEVER NO . CHILLS NO . WEIGHT CHANGE OF UNKNOWN REASONS NO . GASTROENTEROLOGY: NEW UNEXPLAINABLE CHANGES IN BOWEL CONTROL NO . CONSTIPATION NO . GENITOURINARY: ANY NEW CHANGE IN BLADDER CONTROL? NO . NEUROLOGY: NEW ONSET DIZZINESS OR NEUROLOGICAL CHANGES NOT MENTIONED NO . NEW NUMBNESS OR PAIN PATTERNS NOT MENTIONED AND PERTINENT TO TODAY'S VISIT NO . CARDIOLOGY: NEW CHEST PRESSURE NO . PATIENT DENIES NO . RESPIRATORY: UNEXPLAINABLE COUGH NO . NEW SHORTNESS OF BREATH NO . VITAL SIGNS WT 172.2 LBS, HT 69 IN, BMI 25.43 INDEX, BP 161/81 MM HG, HR 84 /MIN, RR 18 /MIN, TEMP 98.0 F, OXYGEN SAT % 100%, SAFE IN ENV? (Y/N) YES, NA INITIALS SC 14:17, REVIEWED BY: BHAVESH SPRINGER. EXAMINATION GENERAL EXAMINATION: THE PATIENT IS ALERT, ORIENTED TIMES THREE AND COOPERATIVE. LUNGS ARE CLEAR TO AUSCULTATION. HEART SHOWS REGULAR RHYTHM, NO MURMURS AND NO GALLOPS. THE PATIENT HAS A TICK IN THE AREA WHERE I AM GOING TO PERFORM THE AREA. ASSESSMENTS SPONDYLOSIS WITHOUT MYELOPATHY OR RADICULOPATHY, LUMBAR REGION - M47.816 (PRIMARY) SPONDYLOSIS WITHOUT MYELOPATHY OR RADICULOPATHY, LUMBOSACRAL REGION - M47.817 TREATMENT SPONDYLOSIS WITHOUT MYELOPATHY OR RADICULOPATHY, LUMBAR REGION [facility] FACET BLOCK (PAIN)[id number],JAMIE L 07/16/2020 6:11:20 PM > PROCEDURE CANCELLED. MEDICATION: VALIUM TAB 10MG ORALLY (DIAZEPAM)ROS FENTON 07/11/2020 2:38:50 PM > VERIFIED CECI JENKINS 07/11/2020 2:40:24 PM > ADMINISTERED MEDICATION: OXYCODONE HCL TAB 10MG ORALLYROS FENTON 07/11/2020 2:39:08 PM > VERIFIED CECI JENKINS 07/11/2020 2:40:50 PM > ADMINISTERED CLINICAL NOTES: I DISCUSSED ALTERNATIVES WITH MR. ACUÑA. I PUT SOME ALCOHOL OVER THE TICK BUT IT SEEMS TO BE EMBEDDED. I WILL SEND HIM TO THE EMERGENCY ROOM OR URGENT CARE TO TAKE CARE OF THE TICK. HE SHOULD BE STARTED ON ANTIBIOTICS. THE PATIENT WILL RESCHEDULE HIS RADIOFREQUENCY. THE PATIENT REPORTS UNDERSTANDING AND AGREES WITH THE PLAN. I, NOHELIA MOORE, DOCUMENTED THE ABOVE INFORMATION ACTING A SCRIBE FOR DR. ALEXANDRE. I HAVE REVIEWED THE ABOVE DOCUMENT, WRITTEN BY NOHELIA MOORE, SUPERVISOR TYPESETTING, AND I VERIFY THAT IT IS ACCURATE. PROCEDURES PAIN NURSING RECORD PROCEDURE ECG NORMAL SINUS, PATIENT SHIELDED YES, SAFETY STRAP YES, PREP OTHER, DRESSING N/A LOC: 1. ALERT, ORIENTED RESP: 1. REGULAR, NO DYSPNEA COLOR: 1. PINK SKIN: 1. WARM, DRY POSITION: 1. PRONE NOTES TICK NOTED LEFT LOWER BACK/BUTTOCK AREA. AREA AROUND INSERTION OF TICK INTO SKIN IS REDDEND. AREA REVIEWED BY DR ALEXANDRE. PROCEDURE CANCELLED PER DR ALEXANDRE. Andrea JENKINS RN PROCEDURE CODES FA211 ESTABILISHED PATIENT [facility] FACILITY CHARGE DISPOSITION & COMMUNICATION FOLLOW UP RESCHEDULE RADIOFREQUENCY (REASON: RESCHEDULE RADIOFREQUENCY) ELECTRONICALLY SIGNED BY MAURICIO ALEXANDRE MD, MD ON 07/24/2020 AT 12:29 PM EDT DISCLAIMER : THIS IS A VISIT SUMMARY EXTRACTED FROM THE [employer] CHART. IT IS NOT A COPY OF THE [employer] PROGRESS NOTE. MELLD
== END ==
LOC: M PAIN 14:00
PROVIDERS: ATTEND Anesthesiology
DX: M47.816 Spondylosis without myelopathy or radiculopathy, lumbar region (principal); M47.817 Spondylosis without myelopathy or radiculopathy, lumbosacral region; G89.29 Other chronic pain; G47.30 Sleep apnea, unspecified; K21.9 Gastro-esophageal reflux disease without esophagitis; G47.00 Insomnia, unspecified; F17.210 Nicotine dependence, cigarettes, uncomplicated; Z79.899 Other long term (current) drug therapy
CPT/HCPCS: G0463; J1100

== ENCOUNTER → 2020-07-27 | Outpatient (CLI) | payer OTHER ==
[~2020-07-27] MED LIST changes: -BUPIVACAINE HCL 0.25% 30ML VIAL As Ordered ONE; -LIDOCAINE 1% SDV 30ML VIAL As Ordered ONE; -dexameTHASONE 10MG/1ML VIAL PRES.FREE (J1100 PER 1MG) As Ordered ONE; -diazePAM 5MG TABLET As Ordered ONE; -oxyCODONE 5MG TAB As Ordered ONE
== END ==
LOC: M LABSMTC 14:18
PROVIDERS: ATTEND Anesthesiology
DX: Z20.822 Contact with and (suspected) exposure to COVID-19 (principal)

== ENCOUNTER → 2020-08-01 | Outpatient (CLI) | payer OTHER ==
[~2020-08-01] MED LIST changes: +BUPIVACAINE HCL 0.25% 30ML VIAL As Ordered ONE; +LIDOCAINE 1% SDV 30ML VIAL As Ordered ONE; +dexameTHASONE 10MG/1ML VIAL PRES.FREE (J1100 PER 1MG) As Ordered ONE; +diazePAM 5MG TABLET As Ordered ONE; +oxyCODONE 5MG TAB As Ordered ONE
--- NOTE | 2020-08-01 15:24 | REP ---
INDICATION: PAIN. COMPARISON: None. TECHNIQUE: Three C-arm views lower lumbar spine. FINDINGS: [place] are seen along the lower lumbar spine. IMPRESSION: 112 seconds fluoroscopy time utilized. <Electronically signed by Bon Munoz > 08/01/20 0182
--- NOTE | 2020-08-02 00:59 | ECWPNPC ---
PATIENT NAME: ROSSY ACUÑA : 1965 GENDER: MALE VISIT DATE: 08/01/2020 DISCHARGE DATE: 08/01/20 1534 VISIT LOCKED DATE TIME: PHYSICIAN: MAURICIO ALEXANDRE MD RESOURCE: MAURICIO ALEXANDRE MD REASON FOR APPOINTMENT 1. LEFT LUMBAR COOL RADIOFREQUENCY L4-L5,L5-S1 HISTORY OF PRESENT ILLNESS GENERAL: -. FALL RISK SCREENING: SCREENING : NO FALLS REPORTED IN THE LAST YEAR. PAIN SCREENING: PATIENT HAS A COMPLAINT OF ACUTE OR CHRONIC PAIN :YES LOCATION OF PAIN:LOW BACK, LEFT HIP INTENSITY OF PAIN (SCALE OF 1 TO 10):6 WHAT DOES YOUR PAIN FEEL LIKE:ACHING, CONTINOUS, SHARP, THROBBING DURATION:CONTINOUS PAIN IS INCREASED BY:ACTIVITIES, PROLONGED STANDING PAIN IS DECREASED BY:USE OF PAIN MEDICATIONS, OTHERS REST NURSING NOTE: -. PAIN CENTER INTAKE QUESTIONS: DO YOU HAVE A HISTORY OF MRSA? :NO DO YOU TAKE A BLOOD THINNERS? :NO DO YOU HAVE ANY BLEEDING DISORDERS? :NO ANY NEW NUMBNESS OR WEAKNESS IN YOUR LEGS OR ARMS? :NO ANY PACEMAKER,DEFIBRILLATOR, OR DORSAL COLUMN STIMULATOR? :NO DO YOU HAVE ANY RASHES OR OPEN SORES? :NO ARE YOU ALLERGIC TO IV DYE? :NO ARE YOU DIABETIC? :NO ANY NEW PROBLEMS WITH YOUR MEDICATIONS? :NO HAVE YOU RECEIVED A VACCINE IN THE PAST 30 DAYS? :NO DO YOU PLAN TO RECEIVE A VACCINE IN THE NEXT 21 DAYS? :NO DO YOU TAKE ANY IMMUNOSUPPRESSIVE MEDICATIONS? :NO ANY HISTORY OF SEIZURES? :NO ANY HISTORY OF CARDIAC ISSUES OR EVENTS? :NO DO YOU HAVE ANY KIDNEY OR LIVER DISEASE? :NO DO YOU HAVE SLEEP APNEA? :YES DO YOU WEAR A CPAP?NO ANY RECENT HEAD INJURY? :NO DO YOU HAVE ANY NEW INFECTIONS? :NO IS THERE A CHANCE YOU COULD BE ? :NO ARE YOU BREAST FEEDING? :NO WHEN DID YOU LAST EAT? : -07/31 WHEN DID YOU LAST DRINK? : -08/01 429 WHAT DID YOU LAST DRINK? : -COFFEE NAME OF PERSON DRIVING YOU HOME? : -FATHER DO YOU HAVE ANY OTHER QUESTIONS OR CONCERNS? : - CURRENT MEDICATIONS TAKING OMEPRAZOLE 40 MG CAPSULE DELAYED RELEASE 1 CAPSULE ORALLY ONCE A DAY TAKING LISINOPRIL 5 MG TABLET TAKE 4 TABLETS ORALLY DAILY, NOTES: 08/01 429 TAKING PERCOCET 7.5-325 MG TABLET 1 TABLET NEEDED ORALLY DAILY, NOTES: 08/01 0430 TAKING EZETIMIBE 10 MG TABLET 1 TABLET ORALLY ONCE A DAY TAKING ESCITALOPRAM OXALATE 10 MG TABLET 1 TABLET ORALLY ONCE A DAY TAKING TRAZODONE HCL 50 MG TABLET 1 TABLET AT BEDTIME NEEDED ORALLY ONCE A DAY TAKING HYDROXYZINE PAMOATE 25 MG CAPSULE 1-3 CAPSULE NEEDED ORALLY EVERY 8 HRS TAKING CYCLOBENZAPRINE HCL 5 MG TABLET 1 TABLET AT BEDTIME NEEDED ORALLY ONCE A DAY TAKING D3 VITAMIN 2000 UNITS 1 TABLET ORALLY DAILY TAKING CRESTOR 10 MG TABLET ORALLY ONCE A DAY NOT-TAKING VITAMIN D (ERGOCALCIFEROL) 1.25 MG (39487 UT) CAPSULE 1 CAPSULE ORALLY WEEKLY NOT-TAKING METHOCARBAMOL 750 MG TABLET 1 TABLET ORALLY BID, NOTES: 04/03 2099 NOT-TAKING IBUPROFEN 400 MG TABLET 1 TABLET ORALLY THREE TIMES A DAY PRN MEDICATION LIST REVIEWED AND RECONCILED WITH THE PATIENT PAST MEDICAL HISTORY BARRETTS ESOPHAGUS NECK PAIN OSTEOARTHRITIS CRUSHED SPINAL CORD - NERVE CONDUCTION TEST SHOWED MISFIRING NERVES GENERALIZED MUSCLE WEAKNESS LOWER BACK PAIN ACID REFLUX INSOMNIA LICHEN PLANUS ALLERGIES N.K.D.A. SURGICAL HISTORY CERVICAL 5,6,7 FUSION DONE TO KEEP SYMPTOMS FROM PROGRESSING 09/11/15 PROCEDURES EGD AND COLONOSCOPIES FAMILY HISTORY FATHER: ALIVE 76 YRS MOTHER: ALIVE 76 YRS SIBLINGS: ALIVE SON(S): ALIVE 2 SON(S) - HEALTHY. FATHER: FIBROMYALGIA, [id number]-[id number], OSTEOARTHRITISBOTHER-OSTEOARTHRITIS, MACULAR DEGENERATIONPATERNAL SIDE 6 UNCLES HAVE FROM DIFFERENT TYPES OF CANCER, COLON, PROSTATE. SOCIAL HISTORY GENERAL: TOBACCO USE ARE YOU A:CURRENT SMOKER ARE YOU INTERESTED IN QUITTING?THINKING ABOUT QUITTING COUNSELED THE PATIENT ON SMOKING CESSATION, EDUCATION [id number]/31/2021 HOW MANY CIGARETTES A DAY DO YOU SMOKE?5 OR LESS HOW SOON AFTER YOU WAKE UP DO YOU SMOKE YOUR FIRST CIGARETTE?WITHIN 5 MIN PATIENT COUNSELED ON THE DANGERS OF TOBACCO USE AND URGED TO QUIT:05/29/2020 WE DISCUSSED CUTTING DOWN TO FEW POSSIBLE LATEX QUESTIONNAIRE LATEX ALLERGY : HAVE YOU EVER DEVELOPED ANY TYPE OF REACTION AFTER HANDLING LATEX PRODUCTS SUCH RUBBER GLOVES, CONDOMS, DIAPHRAGMS, BALLOONS, SOCKS, OR UNDERWEAR?NO LATEX ALLERGY : HAVE YOU EVER DEVELOPED ANY TYPE OF REACTION DURING OR AFTER DENTAL APPOINTMENT, VAGINAL/RECTAL EXAMINATION, SURGICAL PROCEDURE, OR ANY OTHER EXPOSURE?NO LATEX RISK : HAVE YOU EVER HAD ANY DIFFICULTY BREATHING OR HIVES AFTER EATING OR HANDLING ANY FRUITS, OR VEGETABLES; SUCH KIWI, BANANAS, STONE FRUITS, OR CHESTNUTSNO LATEX RISK : DO YOU HAVE A PREVIOUS PERSONAL HISTORY OF MORE THAN NINE SURGERIES, SPINA BIFIDA, OR REPEATED CATHERIZATIONS? NO LATEX RISK : ARE YOU FREQUENTLY EXPOSED TO LATEX PRODUCTS IN YOUR OCCUPATION?YES DATE ASKED : 08/01/2020 ALCOHOL USE: YES. ALCOHOL SCREENING DID YOU HAVE A DRINK CONTAINING ALCOHOL IN THE PAST YEAR?YES HOW OFTEN DID YOU HAVE SIX OR MORE DRINKS ON ONE OCCASION IN THE PAST YEAR?WEEKLY (3 POINTS) HOW MANY DRINKS DID YOU HAVE ON A TYPICAL DAY WHEN YOU WERE DRINKING IN THE PAST YEAR?5 OR 6 (2 POINTS) HOW OFTEN DID YOU HAVE A DRINK CONTAINING ALCOHOL IN THE PAST YEAR?TWO TO FOUR TIMES A MONTH (2 POINTS) POINTS7 INTERPRETATIONPOSITIVE RECREATIONAL DRUG USE DRUG USE?NO CAFFEINE CAFFEINE USE?YES HOW OFTEN AND HOW MUCH? 3 CUPS COFFEE IN THE AM [facility]'S WITNESS NO SYNAGOGUE BELIEFS THAT WOULD IMPACT HEALTH CARE. LANGUAGE LANGUAGES SPOKEN:[place] EDUCATION LEVEL OF EDUCATION:HIGH SCHOOL LEARNING BARRIERS / SPECIAL NEEDS CHANGE FROM LAST VISIT?NO BARRIERS TO LEARNING?NO HEARING IMPAIRED?NO VISION IMPAIRED?NO COGNITIVELY IMPAIRED?NO READINESS TO LEARN?YES LEARNING PREFERENCES?NO LEARNING CAPABILITIES PRESENT?YES EMOTIONAL BARRIERS?NO SPECIAL DEVICES?NO OUTREACH DIRECTOR NEEDED?NO DOMESTIC VIOLENCE DO YOU FEEL SAFE IN YOUR ENVIRONMENT?YES DIET: REGULAR. EXERCISE: DAILY, WALKS. - PFS REFERRAL NEEDED?NO CLERGY REFERRAL NEEDED?NO PUBLIC HEALTH REFERRAL NEEDED?NO HAS THE PATIENT BEEN EDUCATED REGARDING HIS/HER PLAN OF CARE?YES HAS THE PATIENT BEEN EDUCATED REGARDING PAIN, THE RISK FOR PAIN, THE IMPORTANCE OF EFFECTIVE PAIN MANAGEMENT, AND THE PAIN ASSESSMENT PROCESS?YES ADVANCE DIRECTIVE ADVANCE DIRECTIVE DISCUSSED WITH PATIENT:YES PT. STATES HE DOES NOT HAVE ANY ADVANCE DIRECTIVES. HCP INFORMATION WAS GIVEN TO PATIENT AND ASSISTANCE WAS OFFERED IN COMPLETING FORM IF NEEDED. ALCOHOL USE: 3-4 DRINKS/WEEK. HOSPITALIZATION/MAJOR DIAGNOSTIC PROCEDURE SURGICAL RELATED VITAL SIGNS WT 175 LBS, HT 69 IN, BMI 25.84 INDEX, BP 146/81 MM HG, HR 81 /MIN, RR 14 /MIN, TEMP 99.2 F, OXYGEN SAT % 98, SAFE IN ENV? (Y/N) YES, REVIEWED BY: BHAVESH RN. EXAMINATION GENERAL: THE PATIENT IS ALERT, ORIENTED TIMES THREE AND COOPERATIVE. LUNGS ARE CLEAR TO AUSCULTATION. HEART SHOWS REGULAR RHYTHM, NO MURMURS AND NO GALLOPS. ASSESSMENTS SPONDYLOSIS WITHOUT MYELOPATHY OR RADICULOPATHY, LUMBAR REGION - M47.816 (PRIMARY) SPONDYLOSIS WITHOUT MYELOPATHY OR RADICULOPATHY, LUMBOSACRAL REGION - M47.817 TREATMENT SPONDYLOSIS WITHOUT MYELOPATHY OR RADICULOPATHY, LUMBAR REGION SMC FACET BLOCK (PAIN)[id number] MEDICATION: VALIUM TAB 10MG ORALLY (DIAZEPAM)EMELI DENNY 08/01/2020 1:29:29 PM > VERIFIED. CECI JENKINS 08/01/2020 1:30:53 PM > ADMINISTERED MEDICATION: OXYCODONE HCL TAB 10MG ORALLYEMELI DENNY 08/01/2020 1:29:43 PM > VERIFIED. CECI JENKINS 08/01/2020 1:32:35 PM > ADMINISTERED COMPLETION OF PROCEDURAL VISIT WHEN MEETS CRITERIA SPONDYLOSIS WITHOUT MYELOPATHY OR RADICULOPATHY, LUMBOSACRAL REGION SMC FACET BLOCK (PAIN)[id number] PROCEDURES PAIN NURSING RECORD PROCEDURE IN ROOM 1345, PHYSICIAN IN ROOM 1425, START 1433, FINISH 1512, PHYSICIAN OUT OF ROOM 1513, OUT OF ROOM 1519, ECG NORMAL SINUS, PATIENT SHIELDED YES, SAFETY STRAP YES, PREP CHLOROPREP Andrea JENKINS RN, DRESSING TEGADERM DR. ALEXANDRE LOC: 1. ALERT, ORIENTED RESP: 1. REGULAR, NO DYSPNEA COLOR: 1. PINK SKIN: 1. WARM, DRY POSITION: 1. PRONE VITALS: CECI JENKINS 08/01/2020 1:55:11 PM > 139/76 HR 75 16 96% R/A , CECI JENKINS 08/01/2020 2:10:32 PM > 132/73 HR 74 16 97% R/A , CECI JENKINS 08/01/2020 2:2534 PM > 124/70 HR 76 16 97% R/A , CECI JENKINS 08/01/2020 2:40:01 PM > 123/71 HR 74 16 96% R/A , CECI JENKINS 08/01/2020 2:55:56 PM > 139/76 HR 74 16 97% R/A , CECI JENKINS 08/01/2020 3:10:39 PM > 128/70 HR 76 16 97% R/A , CECI JENKINS 08/01/2020 3:25:08 PM > 153/86 HR 87 16 97% R/A D/C V/S NOTES STERILE FIELD/PROCEDURE MEDS PREPARED BY A [facility] SPRINGER GROUNDING PAD APPLIED TO LEFT POSTERIOR THIGH. COMPLETION OF PROCEDURE APPOINTMENT: POST PAIN 4, DRESSING SITE DRY AND INTACT, IV N/A, GAIT STEADY, TEACHING COMPLETED, PATIENT ACKNOWLEDGES UNDERSTANDING YES, PROCEDURE APPOINTMENT COMPLETED AT 1532 PN RADIOFREQUENCY DATE OF PROCEDURE 08/01/2020 THERMO LESION RADIOFREQUENCY > 80 DEGREES : COOL - AVANOS SYSTEM SET AT 60* WITH TISSUE TARGET TEMP > 80* OR MORE. STRAIGHT NEEDLE SIDE: : LEFT LEVELS: : L4-L5, L5-S1 NEEDLE/CATHETER/GAUGE: : 17 CANULA LENGTH: : 100 MM ACTIVE TIP: : 4 MM GROUNDING PAD PLACED ON AFFECTED SIDE (MUSCULAR AREA): : LUMBAR (POSTERIOR UPPER THIGH) 1 ST LEVEL: : L3, INITAL POSTIVE SENSORY RESPONE (50 HZ) 0.2, MOTOR RESPONSE (2 HZ-UP TO 3 VOLTS) 3.0 , PRE-LOCAL IMPEDENCE READING OHMS 600 , POST-LOCAL IMPEDENCE READING OHMS 235 , DURING RF IMPEDENCE READING OHMS 308 2 ND LEVEL: : L4, INITIAL POSITIVE SENSORY RESPONSE (50 HZ) 0.5, MOTOR RESPONSE (2 HZ- UP TO 3 VOLTS) 3.0 , PRE-LOCAL IMPEDENCE READING OHMS 280 , POST-LOCAL IMEPEDENCE READING OHMS 162 , DURING RF IMPEDENCE READING OHMS [address] LEVEL: : L5, INITIAL POSITIVE SENSORY RESPONSE (50 HZ) 0.9, MOTOR RESPONSE (2HZ- UP TO 3 VOLTS) 3.0 , PRE- LOCAL IMPEDENCE READING OHMS 250 , POST-LOCAL IMPEDENCE READING OHMS 214 , DURING RF IMPEDENCE READING OHMS 199 PRE PROCEDURE DIAGNOSES 1. LUMBAR SPONDYLOSIS. 2. LUMBOSACRAL SPONDYLOSIS POST PROCEDURE DIAGNOSES 1. LUMBAR SPONDYLOSIS. 2. LUMBOSACRAL SPONDYLOSIS PROCEDURE LEFT L4-L5 AND LEFT L5-S1 LUMBAR FACET RADIOFREQUENCY SURGEON DR. MAURICIO ALEXANDRE TREADLE CUT OFF SAW OPERATOR NONE ANESTHESIA LOCAL PRE PROCEDURE REPORT THE PATIENT HAS HISTORY OF CHRONIC LOW BACK PAIN. I EVALUATED THE PATIENT AND REVIEWED THE CHART. I WENT OVER THE RISKS, ALTERNATIVES, AND BENEFITS ASSOCIATED WITH THIS PROCEDURE. THE PATIENT WOULD LIKE TO PROCEED AND GAVE CONSENT TO PERFORM THE PROCEDURE. THE PATIENT DENIES UNEXPLAINABLE WEIGHT LOSS, FEVER, CHILLS OR NEW CHANGES IN URINARY OR BOWEL CONTROL. THE PATIENT IS COVID-19 NEGATIVE DESCRIPTION OF PROCEDURE THE PATIENT WAS BROUGHT TO THE PROCEDURE ROOM AND PLACED IN THE PRONE POSITION. A TIMEOUT WAS PERFORMED WHERE THE CONSENTED SITE WAS VERIFIED WITH EVERYONE IN THE ROOM. THE LUMBOSACRAL AREA WAS CLEANED WITH CHLORAPREP SOLUTION AND DRAPED ASEPTICALLY. THE PROCEDURE WAS DONE UNDER STERILE CONDITIONS. UNDER FLUOROSCOPIC GUIDANCE, TARGETS WERE SELECTED AT THE INTERSECTION OF THE LEFT TRANSVERSE PROCESS OF L4, L5 AND ALA OF S1 WITH ITS RESPECTIVE SUPERIOR ARTICULAR PROCESS. I CONFIRMED AGAIN THE SITE OF TARGET. LIDOCAINE WAS USED TO NUMB THE SKIN AND THE SUBCUTANEOUS TISSUE BELOW IT. RADIOFREQUENCY CANNULAS, 17-GAUGE, 100 MM LONG WITH 4 MM ACTIVE TIP, WERE ADVANCED UNDER FLUOROSCOPIC GUIDANCE AND FOLLOWING PATIENT FEEDBACK UNTIL THE TARGET AREA WAS REACHED. POSITION OF THE CANNULA WAS VERIFIED WITH AP AND LATERAL VIEWS. AFTER PROPER POSITION OF THE CANNULA WAS ACHIEVED, WE WORKED WITH THE LEFT SELECTED MEDIAN BRANCHES OF L3, L4 AND THE DORSAL RAMI OF L5. WE MEASURED THE CORRESPONDING IMPEDANCES AND MOTOR RESPONSES INDICATED IN THE RADIOFREQUENCY WORK SHEET. POSITION OF THE CANNULA WAS VERIFIED AGAIN WITH AP AND LATERAL VIEWS. LIDOCAINE 1%, 2 ML, WAS INJECTED AT EACH LEVEL. RADIOFREQUENCY WAS DONE AT EACH LEVEL USING THE Top Rops SYSTEM-- COOLED RF-- WITH A SETTING AT THE MACHINE OF 60 DEGREES WITH A TARGET TISSUE TEMPERATURE OF 80 TO 90 DEGREES FOR A MINIMUM OF 150 SECONDS. AFTER RADIOFREQUENCY WAS DONE, THE PATIENT RECEIVED BUPIVACAINE 0.125%,1 ML, WITH DEXAMETHASONE 3 MG AT EACH SITE. THERE WAS NO EVIDENCE OF BLOOD, PARESTHESIA OR CEREBROSPINAL FLUID DURING THE PROCEDURE. THE PATIENT WAS SENT TO THE RECOVERY ROOMS. THE PATIENT WAS MOVING THE EXTREMITIES AND DOING WELL. EBL LESS THAN 5 ML. THERE WERE NO COMPLICATIONS DURING THE PROCEDURE. FLUOROSCOPY TIME WAS 1 MINUTE 15 SECONDS POST PROCEDURE NOTE THE PATIENT WILL BE SEEN IN A FOLLOW UP IN THE NEXT FEW WEEKS. INSTRUCTIONS WERE GIVEN, QUESTIONS WERE ANSWERED, AND THE PATIENT EXPRESSED UNDERSTANDING AND AGREES WITH THE PLAN. . I, NOHELIA MOORE, DOCUMENTED THE ABOVE INFORMATION ACTING A SCRIBE FOR DR. ALEXANDRE. I HAVE REVIEWED THE ABOVE DOCUMENT, WRITTEN BY FABIENNE MCNULTY, AND I VERIFY THAT IT IS ACCURATE PROCEDURE CODES 82203 DESTROY LUMB/SAC FACET JNT, [place]: [place] [address] DESTROY L/S FACET JNT ADDL, MODIFIERS: LT DISPOSITION & COMMUNICATION FOLLOW UP FOLLOW UP WITH ERP CONSULTANT (REASON: POST LEFT LUMBAR COOL RADIOFREQUENCY L4-L5, L5-S1) ELECTRONICALLY SIGNED BY MAURICIO ALEXANDRE MD, ON 08/01/2020 AT 05:26 PM EDT DISCLAIMER : THIS IS A VISIT SUMMARY EXTRACTED FROM THE [employer] CHART. IT IS NOT A COPY OF THE [employer] PROGRESS NOTE. MTDD
== END ==
LOC: M PAIN 13:00
PROVIDERS: ATTEND Anesthesiology
DX: M47.816 Spondylosis without myelopathy or radiculopathy, lumbar region (principal); M47.817 Spondylosis without myelopathy or radiculopathy, lumbosacral region; G47.30 Sleep apnea, unspecified; K21.9 Gastro-esophageal reflux disease without esophagitis; G47.00 Insomnia, unspecified; F17.210 Nicotine dependence, cigarettes, uncomplicated; Z79.899 Other long term (current) drug therapy
CPT/HCPCS: 64635; 64636; J1100

== ENCOUNTER → 2020-08-15 | Outpatient (CLI) | payer OTHER ==
[~2020-08-15] MED LIST changes: -BUPIVACAINE HCL 0.25% 30ML VIAL As Ordered ONE; -LIDOCAINE 1% SDV 30ML VIAL As Ordered ONE; -dexameTHASONE 10MG/1ML VIAL PRES.FREE (J1100 PER 1MG) As Ordered ONE; -diazePAM 5MG TABLET As Ordered ONE; -oxyCODONE 5MG TAB As Ordered ONE
--- NOTE | 2020-08-16 03:16 | ECWPNPC ---
PATIENT NAME: ROSSY ACUÑA : 1965 GENDER: MALE VISIT DATE: 08/15/2020 DISCHARGE DATE: 08/15/20 1100 VISIT LOCKED DATE TIME: PHYSICIAN: ALINE HICKMAN RESOURCE: ALINE HICKMAN REASON FOR APPOINTMENT 1. POST LEFT LUMBAR COOL RADIOFREQUENCY L4-5,L5-S1 HISTORY OF PRESENT ILLNESS DEPRESSION SCREENING: PHQ-9 LITTLE INTEREST OR PLEASURE IN DOING THINGSMORE THAN HALF THE DAYS FEELING DOWN, DEPRESSED, OR HOPELESSNOT AT ALL TROUBLE FALLING OR STAYING ASLEEP, OR SLEEPING TOO MUCHNEARLY EVERY DAY FEELING TIRED OR HAVING LITTLE ENERGYNEARLY EVERY DAY POOR APPETITE OR OVEREATING NOT AT ALL FEELING BAD ABOUT YOURSELF-OR THAT YOU ARE A FAILURE OR HAVE LET YOURSELF OR YOUR FAMILY DOWN NOT AT ALL TROUBLE CONCENTRATING ON THINGS, SUCH READING THE NEWSPAPER OR WATCHING TELEVISION NOT AT ALL MOVING OR SPEAKING SO SLOWLY THAT OTHER PEOPLE COULD HAVE NOTICED. OR THE OPPOSITE- BEING SO FIDGETY OR RESTLESS THAT YOU HAVE BEEN MOVING AROUND A LOT MORE THAN USUALNOT AT ALL THOUGHTS THAT YOU WOULD BE BETTER OFF , OR OF HURTING YOURSELF IN SOME WAY?NOT AT ALL TOTAL SCORE:8 INTERPRETATIONMILD DEPRESSION PHQ-2 (2015 EDITION) LITTLE INTEREST OR PLEASURE IN DOING THINGS?MORE THAN HALF THE DAYS FEELING DOWN, DEPRESSED, OR HOPELESS?NOT AT ALL TOTAL SCORE2 GENERAL: HERE FOR POST PROCEDURE FOLLOW-UP. HAD LEFT LUMBAR COOL RADIOFREQUENCY L4-5, L5-S1 ON 08/01/2020. REPORTING MARKED REDUCTION IN PAIN POST PROCEDURE. CONTINUES TO BENEFIT FROM DIAGNOSTIC RIGHT-SIDED LUMBAR FACET BLOCK DONE SEVERAL MONTHS AGO. OVERALL DOING REALLY WELL WITH LOW BACK PAIN. CHIEF AREA OF PAIN IS IN HIS NECK. CURRENTLY USING OXYCODONE 7.5/[address] CHRISTINE IS ASKING US TO MANAGE NARCOTIC PAIN MEDICATION. PATIENT USES THIS MEDICATION NOT DAILY BUT NEEDED FOR SEVERE PAIN EPISODES IN HIS NECK AND LOW BACK. REVIEWED NARCOTIC AGREEMENT AND CLINIC POLICY IN REGARDS TO NARCOTIC PAIN MEDICATIONS AND PATIENT IS AGREEABLE TO COMPLY. -. FALL RISK SCREENING: SCREENING : NO FALLS REPORTED IN THE LAST YEAR. PAIN SCREENING: PATIENT HAS A COMPLAINT OF ACUTE OR CHRONIC PAIN :YES LOCATION OF PAIN:LOW BACK LEFT SIDE INTENSITY OF PAIN (SCALE OF 1 TO 10):0 WHAT DOES YOUR PAIN FEEL LIKE:OTHER THERE IS NO PAIN DURATION:ALL DAY PAIN IS INCREASED BY:ACTIVITIES BENDING OVER PAIN IS DECREASED BY:USE OF PAIN MEDICATIONS, OTHERS RESTING NURSING NOTE: -. PAIN CENTER INTAKE QUESTIONS: DO YOU HAVE A HISTORY OF MRSA? :NO DO YOU TAKE A BLOOD THINNERS? :NO DO YOU HAVE ANY BLEEDING DISORDERS? :NO ANY NEW NUMBNESS OR WEAKNESS IN YOUR LEGS OR ARMS? :NO ANY PACEMAKER,DEFIBRILLATOR, OR DORSAL COLUMN STIMULATOR? :NO DO YOU HAVE ANY RASHES OR OPEN SORES? :NO ARE YOU ALLERGIC TO IV DYE? :NO ARE YOU DIABETIC? :NO ANY NEW PROBLEMS WITH YOUR MEDICATIONS? :NO HAVE YOU RECEIVED A VACCINE IN THE PAST 30 DAYS? :NO DO YOU PLAN TO RECEIVE A VACCINE IN THE NEXT 21 DAYS? :NO 1ST COVID 06/15/2020 KIMBERLY N KIMBERLY DO YOU NEED ANY PRESCRIPTION? :NO DO YOU TAKE ANY IMMUNOSUPPRESSIVE MEDICATIONS? :NO IS THERE A CHANCE YOU COULD BE ? :NO ARE YOU BREAST FEEDING? :NO CURRENT MEDICATIONS TAKING OMEPRAZOLE 40 MG CAPSULE DELAYED RELEASE 1 CAPSULE ORALLY ONCE A DAY TAKING PERCOCET 7.5-325 MG TABLET 1 TABLET NEEDED ORALLY DAILY TAKING EZETIMIBE 10 MG TABLET 1 TABLET ORALLY ONCE A DAY TAKING ESCITALOPRAM OXALATE 10 MG TABLET 1.5 TABLET ORALLY ONCE A DAY TAKING TRAZODONE HCL 50 MG TABLET 1 TABLET AT BEDTIME NEEDED ORALLY ONCE A DAY TAKING HYDROXYZINE PAMOATE 25 MG CAPSULE 1-3 CAPSULE NEEDED ORALLY EVERY 8 HRS TAKING CYCLOBENZAPRINE HCL 5 MG TABLET 1 TABLET AT BEDTIME NEEDED ORALLY ONCE A DAY TAKING D3 VITAMIN 2000 UNITS 1 TABLET ORALLY DAILY TAKING CRESTOR 10 MG TABLET ORALLY ONCE A DAY TAKING LOSARTAN POTASSIUM 25 MG TABLET 1 TABLET ORALLY ONCE A DAY, NOTES: NOT SURE OF DOSE NOT-TAKING LISINOPRIL 5 MG TABLET TAKE 4 TABLETS ORALLY DAILY NOT-TAKING VITAMIN D (ERGOCALCIFEROL) 1.25 MG (01676 UT) CAPSULE 1 CAPSULE ORALLY WEEKLY NOT-TAKING METHOCARBAMOL 750 MG TABLET 1 TABLET ORALLY BID, NOTES: 04/03 2099 NOT-TAKING IBUPROFEN 400 MG TABLET 1 TABLET ORALLY THREE TIMES A DAY PRN MEDICATION LIST REVIEWED AND RECONCILED WITH THE PATIENT PAST MEDICAL HISTORY BARRETTS ESOPHAGUS NECK PAIN OSTEOARTHRITIS CRUSHED SPINAL CORD - NERVE CONDUCTION TEST SHOWED MISFIRING NERVES GENERALIZED MUSCLE WEAKNESS LOWER BACK PAIN ACID REFLUX INSOMNIA LICHEN PLANUS ALLERGIES N.K.D.A. SOCIAL HISTORY GENERAL: TOBACCO USE ARE YOU A:CURRENT SMOKER ARE YOU INTERESTED IN QUITTING?THINKING ABOUT QUITTING COUNSELED THE PATIENT ON SMOKING CESSATION, EDUCATION [id number]/02/2021 HOW MANY CIGARETTES A DAY DO YOU SMOKE?5 OR LESS HOW SOON AFTER YOU WAKE UP DO YOU SMOKE YOUR FIRST CIGARETTE?WITHIN 5 MIN PATIENT COUNSELED ON THE DANGERS OF TOBACCO USE AND URGED TO QUIT:05/29/2020 WE DISCUSSED CUTTING DOWN TO FEW POSSIBLE LATEX QUESTIONNAIRE LATEX ALLERGY : HAVE YOU EVER DEVELOPED ANY TYPE OF REACTION AFTER HANDLING LATEX PRODUCTS SUCH RUBBER GLOVES, CONDOMS, DIAPHRAGMS, BALLOONS, SOCKS, OR UNDERWEAR?NO LATEX ALLERGY : HAVE YOU EVER DEVELOPED ANY TYPE OF REACTION DURING OR AFTER DENTAL APPOINTMENT, VAGINAL/RECTAL EXAMINATION, SURGICAL PROCEDURE, OR ANY OTHER EXPOSURE?NO LATEX RISK : HAVE YOU EVER HAD ANY DIFFICULTY BREATHING OR HIVES AFTER EATING OR HANDLING ANY FRUITS, OR VEGETABLES; SUCH KIWI, BANANAS, STONE FRUITS, OR CHESTNUTSNO LATEX RISK : DO YOU HAVE A PREVIOUS PERSONAL HISTORY OF MORE THAN NINE SURGERIES, SPINA BIFIDA, OR REPEATED CATHERIZATIONS? NO LATEX RISK : ARE YOU FREQUENTLY EXPOSED TO LATEX PRODUCTS IN YOUR OCCUPATION?YES DATE ASKED : 08/15/2020 ALCOHOL USE: YES. ALCOHOL SCREENING DID YOU HAVE A DRINK CONTAINING ALCOHOL IN THE PAST YEAR?YES HOW OFTEN DID YOU HAVE SIX OR MORE DRINKS ON ONE OCCASION IN THE PAST YEAR?WEEKLY (3 POINTS) HOW MANY DRINKS DID YOU HAVE ON A TYPICAL DAY WHEN YOU WERE DRINKING IN THE PAST YEAR?5 OR 6 (2 POINTS) HOW OFTEN DID YOU HAVE A DRINK CONTAINING ALCOHOL IN THE PAST YEAR?TWO TO FOUR TIMES A MONTH (2 POINTS) POINTS7 INTERPRETATIONPOSITIVE RECREATIONAL DRUG USE DRUG USE?NO CAFFEINE CAFFEINE USE?YES HOW OFTEN AND HOW MUCH? 3 CUPS COFFEE IN THE AM CHURCH NO DENOMINATIONAL BELIEFS THAT WOULD IMPACT HEALTH CARE. LANGUAGE LANGUAGES SPOKEN:[place] EDUCATION LEVEL OF EDUCATION:HIGH SCHOOL LEARNING BARRIERS / SPECIAL NEEDS CHANGE FROM LAST VISIT?NO BARRIERS TO LEARNING?NO HEARING IMPAIRED?NO VISION IMPAIRED?NO COGNITIVELY IMPAIRED?NO READINESS TO LEARN?YES LEARNING PREFERENCES?NO LEARNING CAPABILITIES PRESENT?YES EMOTIONAL BARRIERS?NO SPECIAL DEVICES?NO CVT RN NEEDED?NO DOMESTIC VIOLENCE DO YOU FEEL SAFE IN YOUR ENVIRONMENT?YES DIET: REGULAR. EXERCISE: DAILY, WALKS. - PFS REFERRAL NEEDED?NO CLERGY REFERRAL NEEDED?NO PUBLIC HEALTH REFERRAL NEEDED?NO HAS THE PATIENT BEEN EDUCATED REGARDING HIS/HER PLAN OF CARE?YES HAS THE PATIENT BEEN EDUCATED REGARDING PAIN, THE RISK FOR PAIN, THE IMPORTANCE OF EFFECTIVE PAIN MANAGEMENT, AND THE PAIN ASSESSMENT PROCESS?YES ADVANCE DIRECTIVE ADVANCE DIRECTIVE DISCUSSED WITH PATIENT:YES PT. STATES HE DOES NOT HAVE ANY ADVANCE DIRECTIVES. HCP INFORMATION WAS GIVEN TO PATIENT AND ASSISTANCE WAS OFFERED IN COMPLETING FORM IF NEEDED. ALCOHOL USE: 3-4 DRINKS/WEEK. REVIEW OF SYSTEMS CONSTITUTIONAL: ANY RECENT FEVER NO . CHILLS NO . WEIGHT CHANGE OF UNKNOWN REASONS NO . GASTROENTEROLOGY: NEW UNEXPLAINABLE CHANGES IN BOWEL CONTROL NO . CONSTIPATION NO . GENITOURINARY: ANY NEW CHANGE IN BLADDER CONTROL? NO . NEUROLOGY: NEW ONSET DIZZINESS OR NEUROLOGICAL CHANGES NOT MENTIONED NO . NEW NUMBNESS OR PAIN PATTERNS NOT MENTIONED AND PERTINENT TO TODAY'S VISIT NO . CARDIOLOGY: NEW CHEST PRESSURE NO . PATIENT DENIES NO . RESPIRATORY: UNEXPLAINABLE COUGH NO . NEW SHORTNESS OF BREATH NO . VITAL SIGNS WT 183.4 LBS, HT 69 IN, BMI 27.08 INDEX, BP 129/62 MM HG, HR 88 /MIN, RR 18 /MIN, TEMP 98.7 F, OXYGEN SAT % 97%, SAFE IN ENV? (Y/N) YES, NA INITIALS SC 10:20T.ELISE RODAS. EXAMINATION GENERAL EXAMINATION: GENERALAWAKE,ALERT ,PLEASANT . PSYCHAFFECT NORMAL . LUNGS:LUNG GLORIA ARE CLEAR TO AUSCULTATION BILATERALLY. GOOD MOVEMENT OF AIR . HEART:S1, S2 IN A REGULAR RATE AND RHYTHM. NO SIGNIFICANT MURMURS, RUBS OR GALLOPS NOTED . ASSESSMENTS OTHER CHRONIC PAIN - G89.29 (PRIMARY) LUMBOSACRAL SPONDYLOSIS WITHOUT MYELOPATHY - M47.817 TREATMENT OTHER CHRONIC PAIN REFILL PERCOCET TABLET, 7.5-325 MG, 1 TABLET NEEDED, ORALLY, TWICE A DAY PRN FOR SEVERE PAIN EPISODES ONLY MDD2 #30 TAB SHOULD LAST 30 DAYS, 30 DAYS, 30 PAIN PROCEDURE LOGDATE OF PROCEDURE1PROCEDURE:LEFT LUMBAR COOL RADIOFREQUENCYAMOUNT OF PRE SEDATEVALIUM 10MG, OXYCODONE 10MGRESULT:MARKED REDUCTION IN PAIN CONTINUES TODAY NOTES: PATIENT WILL SIGN NARCOTIC AGREEMENT WITH US TODAY AND NO LONGER WILL BE GETTING NARCOTIC PAIN MEDICATION FROM OTHER PROVIDERS. , [employer] REVIEWED AND DEMONSTRATES COMPLLIANCE. , RISKS OF NARCOTIC/OPIOD MEDICATIONS INCLUDES BUT IS NOT LIMITED TO RISK OF DEPENDANCE/DEVELOPMENT OF ADDICTION, MOOD DISTURBANCE AND DEPRESSION, OSTEOPOROSIS, HORMONAL AND LABIDAL CHANGES, RESPIRATORY DEPRESSION AND . PATIENT IS ADVISED NOT TO DRIVE OR DRINK ALCOHOL WHILE ON THESE MEDICATIONS , [facility] NARCOTIC AGREEMENT WAS REVIEWED AND SIGNED TODAY BY THE PATIENT. SEE ATTACHED DOCUMENT FOR FULL DETAILS; SPECIFIC ISSUES WERE REVIEWED: 1) KEEP PAIN MEDS IN THEIR ORIGINAL BOTTLES AND ANY WEEKLY PLANNERS ARE TO BE BROUGHT TO THE PAIN CENTER AT EVERY VISIT. 2) THE PATIENT IS NOT TO INCREASE DOSING OR TIMING OF THEIR PAIN MEDICATION WITHOUT SPECIFIC DIRECTION OF THEIR PAIN CENTERPROVIDER (NOT ER OR OTHER PROVIDERS). 3) ALL PAIN MEDS ARE TO BE KEPT SECURED, IN A LOCKED BOX. 4) NO PAIN MEDS ARE TO BE SHARED WITH ANY OTHER PERSON FOR ANY REASON. 5) NO PAIN MEDS MAY BE TAKEN FROM ANY FRIENDS OR RELATIVES FOR ANY REASON 6) NO MEDS OR SUBSTANCES WHICH ARE NOT LEGAL ARE TO BE USED- NO MARIJUANA, NO COCAINE, AMPHETAMINES, HEROIN, OR OTHERS ARE EVER TO BE USED. 7)URINE TESTING IS DONE TO ACCOUNT FOR MEDS AND SUBSTANCES BEING TAKEN AND WILL BE DONE RANDOMLY. PROCEDURE CODES FA211 ESTABILISHED PATIENT [facility] CHARGE DISPOSITION & COMMUNICATION FOLLOW UP 2 MONTHS (REASON: MEDICATION MANAGEMENT/URINE TOXICOLOGY) ELECTRONICALLY SIGNED BY JOSE DOWNEY ON 08/15/2020 AT 01:37 PM EDT DISCLAIMER : THIS IS A VISIT SUMMARY EXTRACTED FROM THE [employer] CHART. IT IS NOT A COPY OF THE [employer] PROGRESS NOTE. GABRIELA
== END ==
LOC: M PAIN 10:15
PROVIDERS: ATTEND Nurse Practitioner Family
DX: M47.817 Spondylosis without myelopathy or radiculopathy, lumbosacral region (principal); G89.29 Other chronic pain; K21.9 Gastro-esophageal reflux disease without esophagitis; G47.00 Insomnia, unspecified; F17.210 Nicotine dependence, cigarettes, uncomplicated; Z79.899 Other long term (current) drug therapy

== ENCOUNTER → 2020-10-15 | Outpatient (CLI) | payer OTHER ==
[~2020-10-15] MED LIST changes: +OMEP40CA4 PO; -OMEP40CA97 PO; -OXYC1TAB15 PO; +OXYC7.5T3 PO
--- NOTE | 2020-10-16 03:14 | ECWPNPC ---
PATIENT NAME: ROSSY ACUÑA : 1965 GENDER: MALE VISIT DATE: 10/15/2020 DISCHARGE DATE: 10/15/20 1458 VISIT LOCKED DATE TIME: PHYSICIAN: ALINE HICKMAN RESOURCE: ALINE HICKMAN REASON FOR APPOINTMENT 1. BACK/MEDICATION MANAGEMENT//URINE TOXICOLOG HISTORY OF PRESENT ILLNESS GENERAL: HERE FOR FOLLOW-UP OF CHRONIC LOW BACK PAIN. THIS IS A MEDICATION MANAGEMENT VISIT. AT HIS LAST VISIT WE STARTED HIM ON OXYCODONE 7.5/325 WITH INSTRUCTIONS TO USE PERIODICALLY FOR SEVERE PAIN EPISODES. HE WAS GIVEN 30 TABLETS FOR A 30-DAY SUPPLY. REPORTS THIS IS HELPFUL AT REDUCING PAIN AND KEEPING HIM FUNCTIONAL. DENIES ADVERSE SIDE EFFECTS WITH THE MEDICATION. BRINGS IN HIS MEDICATION WHICH IS APPROPRIATE FOR WHAT WAS DISPENSED. -. FALL RISK SCREENING: SCREENING : NO FALLS REPORTED IN THE LAST YEAR. PAIN SCREENING: PATIENT HAS A COMPLAINT OF ACUTE OR CHRONIC PAIN :YES LOCATION OF PAIN:LOW BACK INTENSITY OF PAIN (SCALE OF 1 TO 10):2 WHAT DOES YOUR PAIN FEEL LIKE:ACHING, INTERMITTENT DURATION:ONLY WITH SPECIFIC ACTIVITIES PAIN IS INCREASED BY:ACTIVITIES PAIN IS DECREASED BY:USE OF PAIN MEDICATIONS, OTHERS RESTING NURSING NOTE: -. PAIN CENTER INTAKE QUESTIONS: DO YOU HAVE A HISTORY OF MRSA? :NO DO YOU TAKE A BLOOD THINNERS? :NO DO YOU HAVE ANY BLEEDING DISORDERS? :NO ANY NEW NUMBNESS OR WEAKNESS IN YOUR LEGS OR ARMS? :NO ANY PACEMAKER,DEFIBRILLATOR, OR DORSAL COLUMN STIMULATOR? :NO DO YOU HAVE ANY RASHES OR OPEN SORES? :NO ARE YOU ALLERGIC TO IV DYE? :NO ARE YOU DIABETIC? :NO ANY NEW PROBLEMS WITH YOUR MEDICATIONS? :NO HAVE YOU RECEIVED A VACCINE IN THE PAST 30 DAYS? :NO DO YOU PLAN TO RECEIVE A VACCINE IN THE NEXT 21 DAYS? :NO DO YOU NEED ANY PRESCRIPTION? :NO DO YOU TAKE ANY IMMUNOSUPPRESSIVE MEDICATIONS? :NO IS THERE A CHANCE YOU COULD BE ? :NO ARE YOU BREAST FEEDING? :NO CURRENT MEDICATIONS TAKING OMEPRAZOLE 40 MG CAPSULE DELAYED RELEASE 1 CAPSULE ORALLY ONCE A DAY TAKING EZETIMIBE 10 MG TABLET 1 TABLET ORALLY ONCE A DAY TAKING ESCITALOPRAM OXALATE 10 MG TABLET 1.5 TABLET ORALLY ONCE A DAY TAKING TRAZODONE HCL 50 MG TABLET 1 TABLET AT BEDTIME NEEDED ORALLY ONCE A DAY TAKING HYDROXYZINE PAMOATE 25 MG CAPSULE 1-3 CAPSULE NEEDED ORALLY EVERY 8 HRS TAKING CYCLOBENZAPRINE HCL 5 MG TABLET 1 TABLET AT BEDTIME NEEDED ORALLY ONCE A DAY TAKING D3 VITAMIN 2000 UNITS 1 TABLET ORALLY DAILY TAKING CRESTOR 10 MG TABLET ORALLY ONCE A DAY TAKING LOSARTAN POTASSIUM 25 MG TABLET 1 TABLET ORALLY ONCE A DAY, NOTES: NOT SURE OF DOSE TAKING PERCOCET 7.5-325 MG TABLET 1 TABLET NEEDED ORALLY TWICE A DAY PRN FOR SEVERE PAIN EPISODES ONLY MDD2 #30 TAB SHOULD LAST 30 DAYS NOT-TAKING LISINOPRIL 5 MG TABLET TAKE 4 TABLETS ORALLY DAILY NOT-TAKING VITAMIN D (ERGOCALCIFEROL) 1.25 MG (03281 UT) CAPSULE 1 CAPSULE ORALLY WEEKLY NOT-TAKING METHOCARBAMOL 750 MG TABLET 1 TABLET ORALLY BID, NOTES: 04/03 2099 NOT-TAKING IBUPROFEN 400 MG TABLET 1 TABLET ORALLY THREE TIMES A DAY PRN MEDICATION LIST REVIEWED AND RECONCILED WITH THE PATIENT PAST MEDICAL HISTORY BARRETTS ESOPHAGUS NECK PAIN OSTEOARTHRITIS CRUSHED SPINAL CORD - NERVE CONDUCTION TEST SHOWED MISFIRING NERVES GENERALIZED MUSCLE WEAKNESS LOWER BACK PAIN ACID REFLUX INSOMNIA LICHEN PLANUS 1ST COVID 06/15/2020 KIMBERLY HARRIS ALLERGIES NO[ALLERGIES VERIFIED] SOCIAL HISTORY GENERAL: TOBACCO USE ARE YOU A:CURRENT SMOKER ARE YOU INTERESTED IN QUITTING?THINKING ABOUT QUITTING COUNSELED THE PATIENT ON SMOKING CESSATION, EDUCATION [id number]/07/2021 HOW MANY CIGARETTES A DAY DO YOU SMOKE?5 OR LESS HOW SOON AFTER YOU WAKE UP DO YOU SMOKE YOUR FIRST CIGARETTE?WITHIN 5 MIN PATIENT COUNSELED ON THE DANGERS OF TOBACCO USE AND URGED TO QUIT:10/15/2020 WE DISCUSSED CUTTING DOWN TO FEW POSSIBLE LATEX QUESTIONNAIRE LATEX ALLERGY : HAVE YOU EVER DEVELOPED ANY TYPE OF REACTION AFTER HANDLING LATEX PRODUCTS SUCH RUBBER GLOVES, CONDOMS, DIAPHRAGMS, BALLOONS, SOCKS, OR UNDERWEAR?NO LATEX ALLERGY : HAVE YOU EVER DEVELOPED ANY TYPE OF REACTION DURING OR AFTER DENTAL APPOINTMENT, VAGINAL/RECTAL EXAMINATION, SURGICAL PROCEDURE, OR ANY OTHER EXPOSURE?NO LATEX RISK : HAVE YOU EVER HAD ANY DIFFICULTY BREATHING OR HIVES AFTER EATING OR HANDLING ANY FRUITS, OR VEGETABLES; SUCH KIWI, BANANAS, STONE FRUITS, OR CHESTNUTSNO LATEX RISK : DO YOU HAVE A PREVIOUS PERSONAL HISTORY OF MORE THAN NINE SURGERIES, SPINA BIFIDA, OR REPEATED CATHERIZATIONS? NO LATEX RISK : ARE YOU FREQUENTLY EXPOSED TO LATEX PRODUCTS IN YOUR OCCUPATION?YES DATE ASKED : 10/15/2020 ALCOHOL USE: YES. ALCOHOL SCREENING DID YOU HAVE A DRINK CONTAINING ALCOHOL IN THE PAST YEAR?YES HOW OFTEN DID YOU HAVE A DRINK CONTAINING ALCOHOL IN THE PAST YEAR?TWO TO FOUR TIMES A MONTH (2 POINTS) HOW MANY DRINKS DID YOU HAVE ON A TYPICAL DAY WHEN YOU WERE DRINKING IN THE PAST YEAR?5 OR 6 (2 POINTS) HOW OFTEN DID YOU HAVE SIX OR MORE DRINKS ON ONE OCCASION IN THE PAST YEAR?WEEKLY (3 POINTS) POINTS7 INTERPRETATIONPOSITIVE RECREATIONAL DRUG USE DRUG USE?NO CAFFEINE CAFFEINE USE?YES HOW OFTEN AND HOW MUCH? 3 CUPS COFFEE IN THE AM YAZDANISM NO ZOROASTRIANISM BELIEFS THAT WOULD IMPACT HEALTH CARE. LANGUAGE LANGUAGES SPOKEN:TRISTANIAN EDUCATION LEVEL OF EDUCATION:HIGH SCHOOL LEARNING BARRIERS / SPECIAL NEEDS CHANGE FROM LAST VISIT?NO BARRIERS TO LEARNING?NO HEARING IMPAIRED?NO VISION IMPAIRED?NO COGNITIVELY IMPAIRED?NO READINESS TO LEARN?YES LEARNING PREFERENCES?NO LEARNING CAPABILITIES PRESENT?YES EMOTIONAL BARRIERS?NO SPECIAL DEVICES?NO OIL AND GAS FIELD TECHNICIAN NEEDED?NO DOMESTIC VIOLENCE DO YOU FEEL SAFE IN YOUR ENVIRONMENT?YES DIET: REGULAR. EXERCISE: DAILY, WALKS. - PFS REFERRAL NEEDED?NO CLERGY REFERRAL NEEDED?NO PUBLIC HEALTH REFERRAL NEEDED?NO HAS THE PATIENT BEEN EDUCATED REGARDING HIS/HER PLAN OF CARE?YES HAS THE PATIENT BEEN EDUCATED REGARDING PAIN, THE RISK FOR PAIN, THE IMPORTANCE OF EFFECTIVE PAIN MANAGEMENT, AND THE PAIN ASSESSMENT PROCESS?YES ADVANCE DIRECTIVE ADVANCE DIRECTIVE DISCUSSED WITH PATIENT:YES PT. STATES HE DOES NOT HAVE ANY ADVANCE DIRECTIVES. HCP INFORMATION WAS GIVEN TO PATIENT AND ASSISTANCE WAS OFFERED IN COMPLETING FORM IF NEEDED. ALCOHOL USE: 3-4 DRINKS/WEEK. REVIEW OF SYSTEMS CONSTITUTIONAL: ANY RECENT FEVER NO . CHILLS NO . WEIGHT CHANGE OF UNKNOWN REASONS NO . GASTROENTEROLOGY: NEW UNEXPLAINABLE CHANGES IN BOWEL CONTROL NO . CONSTIPATION NO . GENITOURINARY: ANY NEW CHANGE IN BLADDER CONTROL? NO . NEUROLOGY: NEW ONSET DIZZINESS OR NEUROLOGICAL CHANGES NOT MENTIONED NO . NEW NUMBNESS OR PAIN PATTERNS NOT MENTIONED AND PERTINENT TO TODAY'S VISIT NO . CARDIOLOGY: NEW CHEST PRESSURE NO . PATIENT DENIES NO . RESPIRATORY: UNEXPLAINABLE COUGH NO . NEW SHORTNESS OF BREATH NO . VITAL SIGNS WT 187.2 LBS, WT-KG 84.91 KG, HT 69 IN, BMI 27.64 INDEX, BP 134/69 MM HG, HR 76 /MIN, RR 18 /MIN, TEMP 97.8 F, OXYGEN SAT % 99%, NA INITIALS SC 14:38. EXAMINATION GENERAL EXAMINATION: GENERAL AWAKE,ALERT ,PLEASANT . PSYCH AFFECT NORMAL . LUNGS: LUNG GLORIA ARE CLEAR TO AUSCULTATION BILATERALLY. GOOD MOVEMENT OF AIR . HEART: S1, S2 IN A REGULAR RATE AND RHYTHM. NO SIGNIFICANT MURMURS, RUBS OR GALLOPS NOTED . ASSESSMENTS LUMBOSACRAL SPONDYLOSIS WITHOUT MYELOPATHY - M47.817 (PRIMARY) TREATMENT LUMBOSACRAL SPONDYLOSIS WITHOUT MYELOPATHY REFILL PERCOCET TABLET, 7.5-325 MG, 1 TABLET NEEDED, ORALLY, TWICE A DAY PRN FOR SEVERE PAIN EPISODES ONLY MDD2 #30 TAB SHOULD LAST 30 DAYS, 30 DAYS, 30 LAB: URINE TEST GROUP BRANDON OLIVARES 10/15/2020 2:53:16 PM > LAST DOSE: PERCOCET 10/15/2020 NOTES: ISTOP REGISTRY REVIEWED AND DEMONSTRATES COMPLLIANCE. BRINGS IN MEDICATIONS WHICH IS APPROPRIATE FOR WHAT WAS DISPENSED. , RISKS OF NARCOTIC/OPIOD MEDICATIONS INCLUDES BUT IS NOT LIMITED TO RISK OF DEPENDANCE/DEVELOPMENT OF ADDICTION, MOOD DISTURBANCE AND DEPRESSION, OSTEOPOROSIS, HORMONAL AND LABIDAL CHANGES, RESPIRATORY DEPRESSION AND . PATIENT IS ADVISED NOT TO DRIVE OR DRINK ALCOHOL WHILE ON THESE MEDICATIONS. PROCEDURE CODES [id number] ESTABILISHED PATIENT [facility] CHAR[facility] DISPOSITION & COMMUNICATION FOLLOW UP 3 MONTHS (REASON: MED MGMNT) ELECTRONICALLY SIGNED BY JOSE DOWNEY ON 10/15/2020 AT 04:04 PM EDT DISCLAIMER : THIS IS A VISIT SUMMARY EXTRACTED FROM THE [employer] CHART. IT IS NOT A COPY OF THE [employer] PROGRESS NOTE. MELLD
== END ==
LOC: M PAIN 14:30
PROVIDERS: ATTEND Nurse Practitioner Family
DX: M47.817 Spondylosis without myelopathy or radiculopathy, lumbosacral region (principal); G89.29 Other chronic pain; K21.9 Gastro-esophageal reflux disease without esophagitis; F17.210 Nicotine dependence, cigarettes, uncomplicated; Z79.899 Other long term (current) drug therapy

== ENCOUNTER → 2021-02-01 | Outpatient (CLI) | payer OTHER | LOC: M PAIN 14:30 | PROVIDERS: ATTEND Anesthesiology | DX: M47.816 Spondylosis without myelopathy or radiculopathy, lumbar region (principal); G89.29 Other chronic pain; K21.9 Gastro-esophageal reflux disease without esophagitis; F17.210 Nicotine dependence, cigarettes, uncomplicated; Z79.899 Other long term (current) drug therapy ==

== ENCOUNTER → 2021-02-26 | Outpatient (CLI) | payer OTHER | LOC: M EKG 10:55 | PROVIDERS: ATTEND Nurse Practitioner | DX: R00.2 Palpitations (principal) ==

== ENCOUNTER → 2021-03-27 | Outpatient (CLI) | payer OTHER | LOC: M LABSMTC 12:34 | PROVIDERS: ATTEND Anesthesiology | DX: Z20.822 Contact with and (suspected) exposure to COVID-19 (principal) ==

== ENCOUNTER → 2021-05-14 | Outpatient (CLI) | payer OTHER ==
[~2021-05-14] MED LIST changes: +BUPIVACAINE HCL 0.25% 30ML VIAL As Ordered ONE; +ISOVUE-M 300 61% 15ML VIAL As Ordered ONE; +LIDOCAINE 1% SDV 30ML VIAL As Ordered ONE
== END ==
LOC: M PAIN 11:00
PROVIDERS: ATTEND Anesthesiology
DX: M47.816 Spondylosis without myelopathy or radiculopathy, lumbar region (principal); M47.817 Spondylosis without myelopathy or radiculopathy, lumbosacral region; Z79.899 Other long term (current) drug therapy
CPT/HCPCS: 64493; 64494; Q9967

== ENCOUNTER → 2021-09-03 | Outpatient (CLI) | payer OTHER ==
[~2021-09-03] MED LIST changes: -BUPIVACAINE HCL 0.25% 30ML VIAL As Ordered ONE; -ISOVUE-M 300 61% 15ML VIAL As Ordered ONE; -LIDOCAINE 1% SDV 30ML VIAL As Ordered ONE
== END ==
LOC: M RAD 07:05
PROVIDERS: ATTEND Nurse Practitioner
DX: F17.210 Nicotine dependence, cigarettes, uncomplicated (principal)

== ENCOUNTER → 2021-10-21 | Outpatient (CLI) | payer OTHER | LOC: M LABSMTC 10:17 | PROVIDERS: ATTEND Anesthesiology | DX: Z01.812 Encounter for preprocedural laboratory examination (principal); Z20.822 Contact with and (suspected) exposure to COVID-19 ==

== ENCOUNTER → 2021-12-08 | Outpatient (CLI) | payer OTHER | LOC: M LABSMTC 10:07 | PROVIDERS: ATTEND Anesthesiology | DX: Z20.822 Contact with and (suspected) exposure to COVID-19 (principal) ==

== ENCOUNTER → 2021-12-12 | Outpatient (CLI) | payer OTHER ==
[~2021-12-12] MED LIST changes: +BUPIVACAINE HCL 0.25% 30ML VIAL As Ordered ONE; +LIDOCAINE 1% SDV 30ML VIAL As Ordered ONE; +dexameTHASONE 10MG/1ML VIAL PRES.FREE (J1100 PER 1MG) As Ordered ONE; +diazePAM 5MG TABLET As Ordered ONE; +oxyCODONE 5MG TAB As Ordered ONE
== END ==
LOC: M PAIN 12:30
PROVIDERS: ATTEND Anesthesiology
DX: M47.816 Spondylosis without myelopathy or radiculopathy, lumbar region (principal); M47.817 Spondylosis without myelopathy or radiculopathy, lumbosacral region; G89.29 Other chronic pain; G47.30 Sleep apnea, unspecified; K21.9 Gastro-esophageal reflux disease without esophagitis; F17.210 Nicotine dependence, cigarettes, uncomplicated; Z79.899 Other long term (current) drug therapy
CPT/HCPCS: 64635; 64636; J1100

== ENCOUNTER → 2022-02-18 | Outpatient (CLI) | payer OTHER ==
[~2022-02-18] MED LIST changes: -BUPIVACAINE HCL 0.25% 30ML VIAL As Ordered ONE; -LIDOCAINE 1% SDV 30ML VIAL As Ordered ONE; -dexameTHASONE 10MG/1ML VIAL PRES.FREE (J1100 PER 1MG) As Ordered ONE; -diazePAM 5MG TABLET As Ordered ONE; -oxyCODONE 5MG TAB As Ordered ONE
== END ==
LOC: M PAIN 09:00
PROVIDERS: ATTEND Nurse Practitioner Family
DX: M79.10 Myalgia, unspecified site (principal); G89.29 Other chronic pain; G47.30 Sleep apnea, unspecified; K21.9 Gastro-esophageal reflux disease without esophagitis; F17.210 Nicotine dependence, cigarettes, uncomplicated; Z91.02 Food additives allergy status; Z79.899 Other long term (current) drug therapy

== ENCOUNTER → 2022-04-10 | Outpatient (CLI) | payer OTHER | LOC: M LABSMTC 10:01 | PROVIDERS: ATTEND Anesthesiology | DX: Z01.818 Encounter for other preprocedural examination (principal) ==

== ENCOUNTER → 2022-07-18 | Outpatient (CLI) | payer OTHER | LOC: M PAIN 09:00 | PROVIDERS: ATTEND Nurse Practitioner Family | DX: M79.10 Myalgia, unspecified site (principal); G89.29 Other chronic pain; K21.9 Gastro-esophageal reflux disease without esophagitis; F17.210 Nicotine dependence, cigarettes, uncomplicated; Z91.02 Food additives allergy status; Z79.899 Other long term (current) drug therapy ==

== ENCOUNTER → 2023-01-20 | Outpatient (CLI) | payer OTHER | LOC: M PAIN 16:30 | PROVIDERS: ATTEND Nurse Practitioner Family | DX: M47.816 Spondylosis without myelopathy or radiculopathy, lumbar region (principal); G89.29 Other chronic pain; F17.210 Nicotine dependence, cigarettes, uncomplicated; Z91.02 Food additives allergy status; Z79.899 Other long term (current) drug therapy ==

== ENCOUNTER → 2023-02-26 | Outpatient (CLI) | payer OTHER | LOC: M PLARAD 14:26 | PROVIDERS: ATTEND Nurse Practitioner Family | DX: M47.816 Spondylosis without myelopathy or radiculopathy, lumbar region (principal); M51.26 Other intervertebral disc displacement, lumbar region; M48.061 Spinal stenosis, lumbar region without neurogenic claudication ==

== ENCOUNTER → 2023-03-04 | Outpatient (CLI) | payer OTHER | LOC: M PAIN 15:30 | PROVIDERS: ATTEND Anesthesiology | DX: M47.816 Spondylosis without myelopathy or radiculopathy, lumbar region (principal); G89.29 Other chronic pain; F17.210 Nicotine dependence, cigarettes, uncomplicated; Z91.02 Food additives allergy status; Z79.899 Other long term (current) drug therapy | CPT/HCPCS: 76000; G0463 ==

== ENCOUNTER → 2023-08-25 | Outpatient (CLI) | payer OTHER | LOC: M PAIN 17:00 | PROVIDERS: ATTEND Nurse Practitioner Family | DX: M47.816 Spondylosis without myelopathy or radiculopathy, lumbar region (principal); M54.2 Cervicalgia; K22.70 Barrett's esophagus without dysplasia; F17.200 Nicotine dependence, unspecified, uncomplicated; Z79.02 Long term (current) use of antithrombotics/antiplatelets; Z79.1 Long term (current) use of non-steroidal anti-inflammatories (NSAID); Z79.891 Long term (current) use of opiate analgesic; Z79.899 Other long term (current) drug therapy; Z91.048 Other nonmedicinal substance allergy status ==

== ENCOUNTER → 2023-11-26 | Outpatient (CLI) | payer OTHER | LOC: M PAIN 17:00 | PROVIDERS: ATTEND Nurse Practitioner Family | DX: M47.816 Spondylosis without myelopathy or radiculopathy, lumbar region (principal); G89.29 Other chronic pain; K22.70 Barrett's esophagus without dysplasia; M54.2 Cervicalgia; M62.81 Muscle weakness (generalized); M54.50 Low back pain, unspecified; K21.9 Gastro-esophageal reflux disease without esophagitis; L43.9 Lichen planus, unspecified; F17.210 Nicotine dependence, cigarettes, uncomplicated; Z79.891 Long term (current) use of opiate analgesic; Z79.899 Other long term (current) drug therapy; Z91.048 Other nonmedicinal substance allergy status ==

== ENCOUNTER → 2023-12-28 | Outpatient (CLI) | payer OTHER ==
[~2023-12-28] MED LIST changes: +NAPR-1405 PO; -NAPR500T6 PO
== END ==
LOC: M RAD 15:48
PROVIDERS: ATTEND Nurse Practitioner
DX: Z12.2 Encounter for screening for malignant neoplasm of respiratory organs (principal); F17.211 Nicotine dependence, cigarettes, in remission; R91.8 Other nonspecific abnormal finding of lung field

== ENCOUNTER → 2024-03-21 | Outpatient (CLI) | payer BC | LOC: M PAIN 17:15 | PROVIDERS: ATTEND Nurse Practitioner Family | DX: M47.816 Spondylosis without myelopathy or radiculopathy, lumbar region (principal); Z79.891 Long term (current) use of opiate analgesic; G89.29 Other chronic pain; K22.70 Barrett's esophagus without dysplasia; M54.2 Cervicalgia; M19.90 Unspecified osteoarthritis, unspecified site; M62.81 Muscle weakness (generalized); M54.50 Low back pain, unspecified; K21.9 Gastro-esophageal reflux disease without esophagitis; G47.00 Insomnia, unspecified; L43.9 Lichen planus, unspecified; F17.210 Nicotine dependence, cigarettes, uncomplicated; Z91.041 Radiographic dye allergy status; Z79.899 Other long term (current) drug therapy ==

== ENCOUNTER → 2024-04-29 | Outpatient (CLI) | payer BC | LOC: M PAIN 13:30 | PROVIDERS: ATTEND Anesthesiology | DX: M47.816 Spondylosis without myelopathy or radiculopathy, lumbar region (principal); G89.29 Other chronic pain; M54.50 Low back pain, unspecified; Z79.891 Long term (current) use of opiate analgesic; Z79.899 Other long term (current) drug therapy; F17.210 Nicotine dependence, cigarettes, uncomplicated; Z91.041 Radiographic dye allergy status ==

== ENCOUNTER 2024-06-11 09:42 | Emergency (ER) | payer BC ==
[~2024-06-11] VITALS: Ht 177.8 cm; Wt 89.3 kg
[2024-06-11] MEDS ORDERED: LEXA5TAB13 (10:03)
[2024-06-11] MEDS ORDERED: BUSP5TA (10:03)
[2024-06-11] MEDS ORDERED: HYDR-3363 (10:03)
[2024-06-11] MEDS ORDERED: LOSA50TA5 (10:03)
[2024-06-11] MEDS ORDERED: ROSU10TA61 (10:03)
[2024-06-11 10:36] LABS: KETONE, URINE AUTO RFX NEGATIVE (NEGATIVE); LEUKOCYTE ESTERASE UR AUTO RFX NEGATIVE (NEGATIVE); NITRITE, URINE AUTO RFX NEGATIVE (NEGATIVE); RBC, URINE AUTO RFX 0 /HPF (0-3); SQUAM EPITHELIAL CELL UR AURFX 0 /HPF (0-6); WBC, URINE AUTO RFX 0 /HPF (0-3)
[2024-06-11 10:39] LABS: BASO # 0.1 10^3/uL (0.0-0.2); BASO % 0.7 % (0.0-1.0); EOS # 0.3 10^3/uL (0.0-0.5); EOS % 2.1 % (0.0-3.0); HEMATOCRIT 48.2 % (42.0-52.0); HEMOGLOBIN 16.4 g/dl (13.5-17.5); LYMPH # 2.5 10^3/uL (1.5-5.0); LYMPH % 20.7 % (24.0-44.0); MEAN CORPUSCULAR HEMOGLOBIN 29.9 pg (27.0-33.0); MEAN CORPUSCULAR VOLUME 87.8 fl (80.0-96.0); MONO # 0.8 10^3/uL (0.0-0.8); MONO % 6.8 % (2.0-8.0); NEUTROPHILS # 8.4 10^3/uL (1.5-8.5); NEUTROPHILS % 69.5 % (36.0-66.0); PLATELET COUNT, AUTOMATED 223 10^3/uL (150-450); RED BLOOD COUNT 5.49 10^6/uL (4.30-6.10); WHITE BLOOD COUNT 12.1 10^3/uL (4.0-10.0)
[2024-06-11 11:04] LABS: ALBUMIN 4.1 G/DL (3.2-5.2); ALKALINE PHOSPHATASE 90 U/L (40-129); ALT/SGPT 24 U/L (7.0-40); AST/SGOT 15 U/L (<34); BILIRUBIN,DIRECT 0.1 MG/DL (<0.4); BILIRUBIN,TOTAL 0.5 MG/DL (0.3-1.2); BLOOD UREA NITROGEN 15 MG/DL (9-23); CALCIUM LEVEL 9.7 MG/DL (8.3-10.6); CARBON DIOXIDE LEVEL 28 MMOL/L (20-31); CHLORIDE LEVEL 107 MMOL/L (98-107); CREATININE FOR GFR 0.98 MG/DL (0.70-1.30); GLOMERULAR FILTRATION RATE > 60.0 (>49); GLUCOSE, FASTING 116 MG/DL (74-106); POTASSIUM SERUM 4.1 MMOL/L (3.5-5.1); SODIUM LEVEL 143 MMOL/L (136-145); TOTAL PROTEIN 7.4 G/DL (5.7-8.2)
[2024-06-11] MEDS ORDERED: ISOVUE-370 76% 100ML VIAL As Ordered ONE (12:47)
[2024-06-11] MEDS: NS (Normal Saline) 0.9% 1,000 ML IV ONE (12:49)
[2024-06-11 14:12] VITALS: BP 138/77; TEMP 96.8; O2SAT 97
[2024-06-11] MEDS ORDERED: AMOX875T2 PO (14:28)
[2024-06-11] MEDS ORDERED: HYDR-3713 PO (14:28)
[2024-06-11] MEDS ORDERED: KETOROLAC 30 MG/ML 1ML VIAL As Ordered ONE (14:29)
[2024-06-11] MEDS: KETOROLAC 30 MG/ML 1ML VIAL IV ONE (14:32)
[2024-06-11] MEDS: AUGMENTIN 875 MG TAB PO ONE (14:33)
== END 2024-06-11 14:39 | disposition home or self-care (01) ==
LOC: M ED 09:42
DX: K57.32 Diverticulitis of large intestine without perforation or abscess without bleeding (principal); F17.200 Nicotine dependence, unspecified, uncomplicated; Z79.899 Other long term (current) drug therapy; K80.20 Calculus of gallbladder without cholecystitis without obstruction
CPT/HCPCS: 74177; 80048; 80076; 81001; 85025; 96361; 96374; 99284; J1885; Q9967

== ENCOUNTER → 2024-07-11 | Outpatient (CLI) | payer BC ==
[~2024-07-11] MED LIST changes: +AMOX875T2 PO; +BUSP5TA; +HYDR-3363; +HYDR-3713 PO; +LEXA5TAB13; +LOSA50TA5; +ROSU10TA61
== END ==
LOC: M RAD 09:53
PROVIDERS: ATTEND Surgery
DX: R10.11 Right upper quadrant pain (principal)